=== PATIENT | female | born 1970 | race Caucasian/White ===

== ENCOUNTER 2025-02-02 06:30 | Inpatient (IN) | payer BC, SELFPAY ==
--- NOTE | ~2025-02-02 | XR_ITS ---
EXAM/ PROCEDURE: [id number] - 02/02/2025 9:40 CDT HISTORY: 54 years old Female with Pain COMPARISON: None available TECHNIQUE: Two view(s) FINDINGS/ IMPRESSION: There are no fractures or dislocations.Joint spaces are within normal limits. Reviewed, dictated and finalized at location A.
--- NOTE | ~2025-02-02 | XR_ITS ---
EXAM/ PROCEDURE: XR shoulder LT min 2V, XR shoulder RT min 2V - 02/02/2025 8:37 CDT HISTORY: 54 years old Female with request of radiologist COMPARISON: 02/02/2025 TECHNIQUE: Three view(s) each FINDINGS/ IMPRESSION: There are no fractures or dislocations.Joint spaces are within normal limits. Multiple sclerotic leo ges are again seen in bilateral humeral heads (right greater than left), concerning for avascular nec rosis versus osteoblastic metastatic disease. Reviewed, dictated and finalized at location A.
--- NOTE | ~2025-02-02 | XR_ITS ---
Clinical Indication: Cough PA and lateral views of the chest: Comparison: 08/26/2016 Findings: There is linear scarring at the left midlung. The lungs are otherwise clear, without eviden ce of focal consolidation or pleural effusion. Cardiomediastinal silhouette is stable. Calcified lef t hilar lymph node is unchanged. There is suggestion of sclerotic change of the bilateral humeral hea ds, right worse than left. Impression: Linear scarring left midlung. Suggestion of sclerotic change of the bilateral humeral heads, right worse than left. Diagnostic cons iderations could include avascular necrosis, or possibly osteoblastic metastatic disease. Consider de dicated shoulder radiographs. Reviewed, dictated and finalized at location . Impression: Linear scarring left midlung. Suggestion of sclerotic change of the bilateral humeral heads, right worse than left. Diagnostic considerations could include avascular necrosis, or possibly osteoblastic metastatic disease. Consider dedicated shoulder radiographs.
--- NOTE | ~2025-02-02 | CT_ITS ---
EXAMINATION: CTA chest abdomen pelvis DATE: 02/04/2025 07:14 INDICATION: Metastatic disease TECHNIQUE: Computed tomography (CT) of the chest, abdomen and pelvis was performed with 100 mL Omnipa que-350 intravenous contrast. Automated exposure control and iterative reconstruction technique were employed. The dose-length product was 701.80 mGy-cm. COMPARISON: None FINDINGS: CHEST CT: Small bilateral pleural effusions, right greater than left and associated dependent atelectasis in th e bilateral lower lobes. Mild smooth septal line thickening at the bilateral lung bases consistent wi th minimal pulmonary edema. Calcified left upper lobe pulmonary nodule along with calcified AP window lymph node consistent with old granulomatous disease. Mild cardiomegaly. Atherosclerotic coronary ar janee calcifications. Small pericardial effusion. Thoracic aorta is normal in caliber with no dissecti on. No pathologically enlarged thoracic lymphadenopathy. Some scarring in the lateral right breast berrios ggesting prior excisional biopsy. Surgical clips at the right axilla consistent with associated right axillary lymph node dissection. Numerous sclerotic bone lesions scattered diffusely throughout the a xial and appendicular skeleton consistent with metastatic disease. ABDOMEN/PELVIS CT: Cholecystectomy clips the gallbladder fossa. A few small hepatic and splenic calcifications consisten t with old granulomatous disease. Pancreas and left adrenal gland are normal. 2.8 x 1.5 cm right adre nal nodule which is been present since noncontrast CT on 08/26/2016 which demonstrates low-attenuation mass consistent with adrenal adenoma. There are few diverticula along the sigmoid colon without sarah cent from trace stranding to suggest diverticulitis. Small bowel and appendix are normal. Bladder is normal. Uterus and bilateral adnexa are unremarkable. No free intraperitoneal gas or fluid. No pathol ogically enlarged abdominal or pelvic lymphadenopathy. Numerous additional scattered sclerotic bone l esions in the lumbar spine, pelvis and proximal femurs consistent with metastatic disease. IMPRESSION: 1. Innumerable diffusely scattered sclerotic lesions throughout the visualized bones consistent with widespread osseous metastatic disease. 2. Change of prior right breast excisional biopsy and right axillary lymph node dissection for report ed breast cancer. No other lesions suspicious for primary malignancy or nonosseous metastatic disease in the chest, abdomen or pelvis. 3. Small bilateral pleural effusions, right greater than left. Reviewed, dictated and finalized at location A. IMPRESSION: 1. Innumerable diffusely scattered sclerotic lesions throughout the visualized bones consistent with widespread osseous metastatic disease. 2. Change of prior right breast excisional biopsy and right axillary lymph node dissection for reported breast cancer. No other lesions suspicious for primary malignancy or nonosseous metastatic disease in the chest, abdomen or pelvis. 3. Small bilateral pleural effusions, right greater than left.
--- NOTE | ~2025-02-02 | NM_ITS ---
EXAMINATION: NM bone scan whole body DATE: 02/03/2025 13:27 INDICATION: Multiple sclerotic lesions of bone TECHNIQUE: 26.9 mCi Tc-99m HDP was administered intravenously. Delayed whole-body scintigrams were o btained. COMPARISON: Radiograph dated 02/02/2025 FINDINGS: There is extensive heterogeneous increased bone uptake corresponding to the extensive and in places c onfluent sclerotic bone lesions throughout the axial and appendicular skeleton. The foci of increased uptake extend into the bilateral humeri and femurs as well as into the bones at the proximal forearm s and lower legs. Foci of increased uptake can also be seen in the skull and mandible. IMPRESSION: 1. Heterogeneous pattern of diffuse increased uptake in the axial and proximal appendicular skeleton corresponding to the widespread sclerosis of the bones and which is consistent with metastatic diseas e. Reviewed, dictated and finalized at location A. IMPRESSION: 1. Heterogeneous pattern of diffuse increased uptake in the axial and proximal appendicular skeleton corresponding to the widespread sclerosis of the bones an d which is consistent with metastatic disease.
--- NOTE | ~2025-02-02 | CT_ITS ---
CT scan of the Neck Technique: 2.5 mm axial scans were obtained through the neck without IV contrast administration. Jed nal and sagittal reconstructions of the neck were obtained. Dose reduction technique was used on this scan by utilizing automated exposure control and iterative reconstruction technique. The dose-length product (DLP) was 431.48 mGy-cm. Clinical History: Left jaw pain and swelling, status post tooth extraction Findings: There is no evidence of any significant cervical lymphadenopathy. Several small, nonenlarged jugulo- digastric and posterior cervical lymph nodes are noted bilaterally. Parapharyngeal spaces appear norm al bilaterally. The parotid and submandibular glands appear normal. The pharyngeal mucosal spaces appear normal. No soft tissue masses are seen in the neck. The thyroid gland appears normal. Images of the lung apices reveal no abnormalities. Impression: No significant abnormalities noted. Reviewed, dictated and finalized at [facility]. Impression: No significant abnormalities noted.
--- NOTE | ~2025-02-02 | XR_ITS ---
EXAMINATION: XR thoracic spine 3V, XR lumbar spine 2-3V DATE: 02/02/2025 09:58 INDICATION: Back pain TECHNIQUE: 1. One AP, lateral and lateral swimmer's views of the thoracic spine were obtained. 2. AP, lateral and coned-down lateral lumbosacral views of the lumbar spine were obtained. COMPARISON: None. FINDINGS: There is diffuse patchy sclerosis of the bones. 7 degrees upper thoracic levocurvature. Sagittal alig nment is normal. Normal alignment at the lumbar spine. Vertebral body heights are normal throughout. Multilevel thoracic disc height loss with small degenerative endplate osteophytes, moderate severity at T5 C6 and otherwise mild. Additional mild disc height loss at T12-L1, L1-L2 and L2-L3. Healing fra ctures of the lateral left third and seventh ribs.. Likely very small bilateral pleural effusions wit h blunting at the posterior sulci, cardiophrenic angles and left costophrenic angle. Cholecystectomy clips in right upper quadrant. IMPRESSION: 1. Diffuse sclerosis of the bones suspicious for metastatic disease in this patient with known histor y of prior breast cancer. 2. Mild thoracic and lumbar spondylosis. 3. Couple healing fractures of the lateral left third and seventh ribs which may be pathologic. 4. Very small bilateral pleural effusions. Reviewed, dictated and finalized at location A. IMPRESSION: 1. Diffuse sclerosis of the bones suspicious for metastatic disease in this pat ient with known history of prior breast cancer. 2. Mild thoracic and lumbar spondylosis. 3. Couple healing fractures of the lateral left third and seventh ribs which ma y be pathologic. 4. Very small bilateral pleural effusions.
--- NOTE | ~2025-02-02 | CT_ITS ---
EXAMINATION: CT biopsy bone deep ORDER COMPLETED DATE: 02/06/2025 12:54 INDICATION: Abnormal imaging. Personal history of breast cancer. TECHNIQUE: The procedure including the risks and benefits was discussed with the patient. The patient understood the risks and agreed to proceed. A time-out was performed to verify the patient's name, date of , and procedure to be performed . The skin overlying the right hip was prepped and draped in usual sterile fashion. Anesthetic was administered with 1% lidocaine subcutaneously and periosteal. Moderate conscious sedation was achieved with 200 mcg fentanyl IV and 3 mg of Versed IV. An 11 gauge introducer needle was inserted into greater trochanter of the right femur, utilizing CT g uidance consistent with recent bone scan. A core bone marrow biopsy was obtained. The needle was removed and the entry site was cleaned and dressed. There were no immediate complications. FINDINGS: CT examination demonstrates the biopsy device within the right femur, at the level of the g reater trochanter. IMPRESSION: 1. Successful CT-guided deep bone biopsy of the right femur, as detailed above. The patient was awakened in their sedation and transferred to the recovery area in stable condition. Reviewed, dictated and finalized at location A.
--- NOTE | ~2025-02-02 | XR_ITS ---
EXAM/ PROCEDURE: XR hip BI 2V w AP pelvis - 02/02/2025 9:40 CDT HISTORY: 54 years old Female with Pain, right hurts more COMPARISON: None available TECHNIQUE: 5 view(s) FINDINGS/ IMPRESSION: There are no fractures or dislocations.Joint spaces are within normal limits. Reviewed, dictated and finalized at location A.
--- NOTE | ~2025-02-02 | XR_ITS ---
EXAM/ PROCEDURE: [id number] - 02/02/2025 9:40 CDT HISTORY: 54 years old Female with Pain COMPARISON: None available TECHNIQUE: Three view(s) FINDINGS/ IMPRESSION: There are no fractures or dislocations.Joint spaces are within normal limits. Reviewed, dictated and finalized at location A.
[2025-02-02 06:36] VITALS: BP 165/112; PULSE 96; RESP 15; TEMP 36.6; O2SAT 97
[2025-02-02 06:58] LABS: Hematocrit 35.4 % (37.0-47.0); Hemoglobin 10.9 g/dL (12.0-15.0); Mean Corpuscular HGB Conc 30.8 g/dl (32-36); Mean Corpuscular Hemoglobin 30.8 pg (26-34); Mean Corpuscular Volume 100.0 fl (80-100); Platelet Count Result 158 k/mm3 (150-375); Red Blood Count 3.54 M/mm3 (4.2-5.4); White Blood Count 28.8 K/mm3 (4.5-10.0)
--- NOTE | 2025-02-02 07:01 | ED_ITS ---
HPI - General Adult General Chief complaint: Unspecified Stated complaint: the infection is spreading in my body Time Seen by Provider: 02/02/25 07:00 Source: patient Mode of arrival: ambulatory Limitations: no limitations History of Present Illness HPI narrative: Patient complaining pain and ache all over her body for months, been seen by harvest worker, stopped prednisone 3 weeks ago, was seen by silver steward few days ago with a diagnosis of fatty liver disease, was seen by a dentist few weeks ago and had a course of clindamycin and pulled tooth, currently complaining of same symptoms of body aches unable to walk, pain at the left face and swelling like lymph nodes. Patient believed that she have infection in her system and does not know where. Related Data Home Medications ?Medication ?Instructions ?Recorded ?Confirmed ?Last Taken ?Type No Home Medications 06/09/19 06/09/19 Unknown History Allergies Allergy/AdvReac Type Severity Reaction Status Date / Time Contrast Media Allergy Intermediate itching Uncoded 02/02/25 06:49 Review of Systems 2 Review of Systems: All systems reviewed & are unremarkable except as noted in HPI and below Exam 2 Narrative: General appearance: Well-developed, well-nourished Skin: Normal color left face exam showing slight swelling tenderness like lymph nodes just below the level of the left ear at the jaw area Head: Normocephalic, nontraumatic Eyes: Clear conjunctiva ENT: Oropharynx normal, ears normal, nose normal Neck: Supple, nontender Chest and respiratory: Airway patent, no respiratory distress, no accessory muscle use Heart: Regular rate/rhythm Abdomen: Soft, nontender, no organomegaly, quiet bowel sounds Vascular: Normal peripheral pulses, normal capillary refill. Musculoskeletal: Normal range of motion, nontender back Neurologic: Alert and oriented ?3, EDUCATION DIAGNOSTICIAN is normal as tested, no gross motor deficit Course Consultations Consultation #1: DR OSHEA Date: 02/02/25 Consultation #2: DR ALVAREZ Date: 02/02/25 Vital Signs Vital signs: Vital Signs Temperature 36.6 C 02/02/25 06:36 Pulse Rate 96 02/02/25 06:36 Respiratory Rate 15 02/02/25 06:36 Blood Pressure 165/112 H 02/02/25 06:36 Pulse Oximetry 97 02/02/25 06:36 Oxygen Delivery Room Air 02/02/25 06:36 Temperature 36.6 C 02/02/25 06:36 Pulse Rate 96 02/02/25 06:36 Respiratory Rate 15 02/02/25 06:36 Blood Pressure 165/112 H 02/02/25 06:36 Pulse Oximetry 97 02/02/25 06:36 Oxygen Delivery Room Air 02/02/25 06:36 Medical Decision Making MDM Narrative Medical decision making narrative: Patient presents with multiple symptoms Vital signs showing blood pressure 165/112 otherwise within normal limit Physical examination: Depressed looking patient, tenderness left Macario just below the level of the ear was possible lymphadenopathy Differential diagnosis include anxiety, stress related symptoms, autoimmune disease, dental infection, ear infection, urinary tract infection Blood workup today includes CBC, CMP, CRP showed WBC of 28.8, hemoglobin 10.9, AST 50, alkaline phosphatase 142, C-reactive protein 6.8, Urinalysis showed trace leukocyte Estrace Chest x-ray showed questionable bilateral avascular necrosis of the humeral head CT soft tissue neck with IV contrast showed no significant abnormalities Diagnosis: Body aches, leukocytosis, questionable osteoplastic metastatic disease Differential Diagnosis Differential Diagnosis: As above Vital Signs Vital Signs: Vital Signs Temperature 36.6 C 02/02/25 06:36 Pulse Rate 96 02/02/25 06:36 Respiratory Rate 15 02/02/25 06:36 Blood Pressure 165/112 H 02/02/25 06:36 Pulse Oximetry 97 02/02/25 06:36 Oxygen Delivery Room Air 02/02/25 06:36 Temperature 36.6 C 02/02/25 06:36 Pulse Rate 96 02/02/25 06:36 Respiratory Rate 15 02/02/25 06:36 Blood Pressure 165/112 H 02/02/25 06:36 Pulse Oximetry 97 02/02/25 06:36 Oxygen Delivery Room Air 02/02/25 06:36 Lab Data 02/02/25 06:52 02/02/25 06:52 Labs: Lab Results 02/02/25 02/02/25 Range/Units 06:52 07:51 WBC 28.8 H (4.5-10.0) K/mm3 RBC 3.54 L (4.2-5.4) M/mm3 Hgb 10.9 L (12.0-15.0) g/dL Hct 35.4 L (37.0-47.0) % MCV 100.0 (80-100) fl MCH 30.8 (26-34) pg MCHC 30.8 L (32-36) g/dl RDW 17.9 H (11.5-14.5) % Plt Count 158 (150-375) k/mm3 MPV 9.4 (7.4-10.4) fl Immature Gran % (Auto) Not Reportable Neut % (Auto) Not Reportable Lymph % (Auto) Not Reportable [place] % (Auto) Not Reportable Eos % (Auto) Not Reportable Baso % (Auto) Not Reportable Lymph # (Auto) Not Reportable [place] # (Auto) Not Reportable Eos # (Auto) Not Reportable Baso # (Auto) Not Reportable Abs Immat Gran (auto) Not Reportable Absolute Neuts (auto) Not Reportable Absolute Nucleated RBC Not Reportable Total Counted 100 Neutrophils % (Manual) 50 (46-73) % Band Neutrophils % 10 H (0-6) % Lymphocytes % (Manual) 12 L (18-44) % Monocytes % (Manual) 12 H (3-9) % Eosinophils % (Manual) 5 H (0-4) % Metamyelocytes % 3 % Myelocytes % 6 % Nucleated RBC % Not Reportable Abs Neuts (Manual) 17.28 H (1.3-6.7) K/mm3 Abs Lymphs (Manual) 3.45 (1.1-4.5) K/mm3 Abs Monocytes (Manual) 3.45 H (0.1-0.90) K/mm3 Absolute Eos (Manual) 1.44 H (0.02-0.50) K/mm3 Nucleated RBCs 7 % Platelet Estimate Adequate (Adequate) Polychromasia 1+ Anisocytosis 1+ Schistocytes None seen Sodium 138 (137-145) mmol/L Potassium 4.5 (3.4-5.0) mmol/L Chloride 101 (98-107) mmol/L Carbon Dioxide 25 (22-30) mmol/L Anion Gap 12 (4-12) mmol/L BUN 13 (7-17) mg/dL Creatinine 0.77 (0.7-1.0) mg/dL Estim Creat Clear Calc 71 ml/min Estimated GFR > 60 (59 - ) Glucose 128 H (65-110) mg/dL Lactic Acid 1.1 (0.7-2.0) mmol/L Calcium 9.9 (8.4-10.2) mg/dL Total Bilirubin 0.5 (0.2-1.3) mg/dL AST 50 H (14-36) U/L ALT 23 (6-35) U/L Alkaline Phosphatase 142 H (38-126) U/L C-Reactive Protein 6.8 H (<1.0) mg/dL Total Protein 8.4 H (6.3-8.2) g/dL Albumin 4.2 (3.5-5.1) g/dL Urine Color Yellow (Yellow) Urine Appearance Clear (Clear) Urine pH 6.5 (5.0-9.0) Ur Specific [place] 1.007 (1.001-1.035) Urine Protein Negative (Negative) mg/dL Urine Glucose (UA) Negative (Negative) mg/dL Urine Ketones Negative (Negative) mg/dL Ur Blood (Man) Negative (Negative) Urine Nitrate Negative (Negative) Urine Bilirubin Negative (Negative) Urine Urobilinogen 0.2 (<2.0) mg/dL Leukocyte Esterase Rfl Trace H (Negative) CHARLES/UL Urine RBC 0-2 (0-2) /hpf Urine WBC 0-5 (0-3) /hpf Ur Squamous Epith Cells None seen (Few) /hpf Urine Bacteria None seen /hpf Urine Casts 0-2 Imaging Data Radiologist's impression: Impressions Chest X-Ray 02/02/25 08:07 Impression: Linear scarring left midlung. Suggestion of sclerotic change of the bilateral humeral heads, right worse than left. Diagnostic considerations could include avascular necrosis, or possibly osteoblastic metastatic disease. Consider dedicated shoulder radiographs. Soft Tissue Neck CT 02/02/25 08:09 Impression: No significant abnormalities noted. Critical Care Time Critical Care Time Critical Care Time: No Discharge Plan Discharge Clinical Impression: Leukocytosis, Generalized body aches Patient Disposition: Still a Patient Condition: Stable Patient Language: Japanese Prescriptions: No Action No Home Medications Follow-up/Referrals: Praveena,MD Clarita [Primary Care Provider] -
[2025-02-02 07:09] LABS: Alanine Aminotransferase 23 U/L (6-35); Albumin Level 4.2 g/dL (3.5-5.1); Alkaline Phosphatase 142 U/L (38-126); Anion Gap 12 mmol/L (4-12); Aspartate Amino Transferase 50 U/L (14-36); Bilirubin,Total 0.5 mg/dL (0.2-1.3); Blood Urea Nitrogen 13 mg/dL (7-17); Calcium 9.9 mg/dL (8.4-10.2); Carbon Dioxide 25 mmol/L (22-30); Chloride 101 mmol/L (98-107); Estimated CRCL calculation 71 ml/min; Estimated Glomerular Filt Rate > 60; Glucose 128 mg/dL (65-110); Potassium 4.5 mmol/L (3.4-5.0); Sodium 138 mmol/L (137-145); Total Protein 8.4 g/dL (6.3-8.2)
[2025-02-02 07:37] LABS: CRP 6.8 mg/dL (<1.0)
--- NOTE | 2025-02-02 07:42 | PC.NURSE ---
MiTio tech and Reema tech attempted to draw patients blood cultures. both attempts unsuccessful. Toño RODRIGUEZ aware.
[2025-02-02 07:45] LABS: Total Cells Counted 100
[2025-02-02 07:46] LABS: Band Neutrophils Percent 10 % (0-6); Eosinophils Absolute Manual 1.44 K/mm3 (0.02-0.50); Eosinophils Percent Manual 5 % (0-4); Lymphocytes Absolute Manual 3.45 K/mm3 (1.1-4.5); Lymphocytes Percent Manual 12 % (18-44); Metamyelocytes Percent 3 %; Monocytes Absolute Manual 3.45 K/mm3 (0.1-0.90); Monocytes Percent Manual 12 % (3-9); Myelocytes Percent 6 %; Neutrophils Absolute Manual 17.28 K/mm3 (1.3-6.7); Neutrophils Percent Manual 50 % (46-73); Schistocytes None Seen
--- NOTE | 2025-02-02 07:46 | PC.NURSE ---
patient in bathroom at this time to provide urine sample.
[2025-02-02 07:47] LABS: Anisocytosis 1+; Polychromasia 1+
--- NOTE | 2025-02-02 07:48 | PC.NURSE ---
per Toño RODRIGUEZ, cancel patient blood culture orders.
[2025-02-02 08:04] LABS: Add Urine Microscopic? YES; Appearance Urine Clear (Clear); Glucose Urine UA Negative (Negative); Leukocyte Esterase Ur Trace LEU/UL (Negative); Nitrate Urine Negative (Negative); Non Pathogenic Casts 0-2; Specific Grav Ur 1.007 (1.001-1.035)
[2025-02-02 09:10] VITALS: BP 131/84; PULSE 78; RESP 16; O2SAT 99
[2025-02-02] MEDS: NICOTINE (*PBKC) 21 MG PATCH 1 PATCH TRANSDERM (10:31)
--- NOTE | 2025-02-02 11:24 | PC.NURSE ---
Bedside report received from Toño RODRIGUEZ
[2025-02-02 12:25] VITALS: BP 135/87; PULSE 92; RESP 18; TEMP 36.8; O2SAT 97
--- NOTE | 2025-02-02 13:28 | ADMGEN ---
This patient, Lucila Conrad, was admitted to [facility] Surg Room 321-02. Patient/family oriented to hospital policies and general routines including ID bracelet, bed and alarms, visiting hours, pain management, procedures, bathroom and other care routines, personal items, smoking policy, room service/diet, and visiting hours. Information on how to activate the Rapid Response Team has been discussed. Patient/Family are encouraged to report perceived risks to care and to ask questions if they do not understand what they are told or what they should do.
[2025-02-02 13:29] VITALS: BMI 32.0
[2025-02-02] MEDS: SODIUM CHLORIDE 0.9% IV 1,000 ML 125 ML IV CONT (14:16)
--- NOTE | 2025-02-02 14:48 | PM.IMHP ---
H&P: HPI History of Present Illness Date/Time: 02/02/25 14:48 Chief Complaint: presented with diffuse body pains and elevated WBC Narrative: 54 yo female with PMH of breast ca, DM2 who noted she controlled it wihte about 30 lbs weight loss the past 4 months, presented to the ER on Elevated WBC and diffuse body pain. Patient report that about 3=4 months ago she started having left hip pain for which she was referred to the Ent Nurse who diagnosed of RA and later discounted nella diagnosis. about 3 weeks ago she had dental infection and hs her tooth removed . Noted she has been following up with PCP who noted taht her WBC has increased from 14 to 28 for which she was recommended to present to the ER for proper eval and care. Noted that she has been having diffuse body aches and night sweats last night . Otherwise denies any chest pain, vomiting, diarrhea, abd pain, dysuria or focal weakness. ER eval notable for stable vital signs within normal limits, EBC 28.8, Hb 10.9. Imaging showed diffuse sclerotic lesions with on bilateral humeral heads, and diffuse bone sclerotic lesions suspicious for metastatic disease. ONcology and Ortho were consulted prior to admission. Review of Systems Review of Systems: All other systems were reviewed and negative except as noted in the HPI above [facility] Social History Social History Smoking packs per day: 1 Smoking cigarettes per day: 20.0 Years smoked: 30 Smoking pack-years: 30.00 Smoking status: Current every day smoker Tobacco type: cigarettes Alcohol intake: never Substance use: never Do You Feel Safe in your Home?: Yes Lack of Transportation: No Lack of Food: Never True Current Housing: I Have Housing Concerned About Future Housing: No Difficulty Paying Gas/Electric Bills: No Difficulty Paying for Meds: No Currently Unemployed: No Education: High School Diploma/GED Difficulty w/ Childcare or Family Care: No Spiritual care concerns: No Meds Home Medications and Allergies Home Medications ?Medication ?Instructions ?Recorded ?Confirmed ?Type No Home Medications 06/09/19 06/09/19 History Allergies Allergy/AdvReac Type Severity Reaction Status Date / Time Contrast Media Allergy Intermediate itching Uncoded 02/02/25 06:49 Vital Signs Vital Signs - 24 hr 02/02/25 06:36 02/02/25 09:10 02/02/25 12:25 Temperature 97.8 F 98.2 F Pulse Rate 96 78 92 Respiratory Rate 15 16 18 Blood Pressure 165/112 H 131/84 135/87 Pulse Oximetry 97 99 97 Oxygen Delivery Room Air Exam Narrative: General: alert and comfortable Eyes: EOMI, PERRLA ENNT External ears normal, Neck is supple, no masses, Respiratory systems: Clear to auscultation Cardiovascular S1, S2, normal rhythm, no murmur, rub, or gallop; no thrill or palpable murmurs on palpation. Gastrointestinal: soft, non-tender, and non-distended abdomen with no masses; BS present Skin: no rash, lesions, ulcerations, subcutaneous nodules or induration Musculoskeletal: no abnormality and no tenderness, normal ROM Neurologic: Alert and oriented x3, non focal Mental Status Exam: normal affect H&P: Results Labs Labs: Short CBC 02/02/25 Range/Units 06:52 WBC 28.8 H (4.5-10.0) K/mm3 Hgb 10.9 L (12.0-15.0) g/dL Hct 35.4 L (37.0-47.0) % Plt Count 158 (150-375) k/mm3 BMP 02/02/25 06:52 Sodium 138 Potassium 4.5 Chloride 101 Carbon Dioxide 25 BUN 13 Creatinine 0.77 Glucose 128 H Calcium 9.9 Liver Function 02/02/25 Range/Units 06:52 Total Bilirubin 0.5 (0.2-1.3) mg/dL AST 50 H (14-36) U/L ALT 23 (6-35) U/L Alkaline Phosphatase 142 H (38-126) U/L Albumin 4.2 (3.5-5.1) g/dL Urine 02/02/25 Range/Units 07:51 Urine Color Yellow (Yellow) Urine Appearance Clear (Clear) Urine pH 6.5 (5.0-9.0) Ur Specific [place] 1.007 (1.001-1.035) Urine Protein Negative (Negative) mg/dL Urine Glucose (UA) Negative (Negative) mg/dL Assessment and Plan Assessment and plan (1) Generalized body aches: Code(s): R52 - Pain, unspecified Status: Acute (2) Leukocytosis: Code(s): D72.829 - Elevated white blood cell count, unspecified Status: Acute Plan Possible metastatic disease possibly from prior breast ca presented with diffuse body aches Leukocytosis and night sweats Imaging showed diffuse sclerotic lesions suspicious for metastatic disease Oncology and Ortho consulted from the ER Bone biopsy ordered Dm2 BG 128 A1c ordered Hx of Breast ca continue above care DVT prophylaxis on Sq Lovenox FUll code Hospitalist MIPS Advance Care Plan I have confirmed that the patient's Advanced Care Plan is present, code status is documented, or surrogate decision maker is listed in patient medical record.: Yes Medication Reconciliation I have utilized all available resources to obtain, update and review the patients current medications (includes all prescriptions, OTC, herbals, cannabis, and nutritional supplements).: Yes
[2025-02-02 15:20] VITALS: PULSE 92; RESP 18; O2SAT 97
--- NOTE | 2025-02-02 18:05 | WPDONCCN ---
Assessment and Plan Assessment and plan (1) Bone lesion: Code(s): M89.9 - Disorder of bone, unspecified Status: Acute Assessment and Plan: This is a pleasant 54-year-old female with history of right-sided breast cancer status post lumpectomy in 2019 and then adjuvant radiation therapy treatment. She did not receive chemotherapy and endocrine therapy. Came into the hospital with generalized body aches. Labs showed elevated WBC count. Lumbar and thoracic spine x-rays were performed due to back pain that showed diffuse sclerosis of the bone suspicious for metastatic disease. On breast examination there is no evidence of masses and lymphadenopathy other than scarring in the right breast at 7 o'clock position. I will order CA 15-3 as well as bone scan and CT chest abdomen pelvis. (2) Leukocytosis: Code(s): D72.829 - Elevated white blood cell count, unspecified Status: Acute Assessment and Plan: This is likely reactive secondary to generalized musculoskeletal discomfort and need recent use of the steroids. I will check C-reactive protein, sedimentation rate and flow cytometric analysis for leukemia. She was provided with my office information for follow-up. HPI Data of Consult Date/Time: 02/02/25 18:05 Requesting Physician: Gabriel Brown MD Primary Care Provider: Clarita GrissomMD Consult Narrative Narrative: Lucila Conrad is a 54 year old female with history of right-sided breast cancer diagnosed April 2019 is status post lumpectomy and then adjuvant radiation therapy treatment. She did not receive chemotherapy and endocrine therapy. Surgery was performed by Dr. Arenas at [facility]. She also has a history of type 2 diabetes and autoimmune disease with rheumatoid arthritis like symptoms. She was treated with steroid dose for about 6 weeks duration 1 month ago for generalized myalgia is without much relief. She came into the hospital with generalized body aches and found to have elevated WBC count. Thoracic and lumbar spine x-ray showed diffuse sclerosis of the bone suspicious for metastatic disease. She denies any weight loss. Denies any new lung sounds are lymphadenopathy. She has intermittent left upper quadrant abdominal pain. No other new complaint. Review of Systems Review of Systems: Review of system as per HPI otherwise negative PMFSH Social History Social History Smoking packs per day: 1 Smoking cigarettes per day: 20.0 Years smoked: 30 Smoking pack-years: 30.00 Smoking status: Current every day smoker Tobacco type: cigarettes Alcohol intake: never Substance use: never Do You Feel Safe in your Home?: Yes Lack of Transportation: No Lack of Food: Never True Current Housing: I Have Housing Concerned About Future Housing: No Difficulty Paying Gas/Electric Bills: No Difficulty Paying for Meds: No Currently Unemployed: No Education: High School Diploma/GED Difficulty w/ Childcare or Family Care: No Spiritual care concerns: No Meds Home Medications and Allergies Home Medications ?Medication ?Instructions ?Recorded ?Confirmed ?Type No Home Medications 06/09/19 02/02/25 History Allergies Allergy/AdvReac Type Severity Reaction Status Date / Time Contrast Media Allergy Intermediate itching Uncoded 02/02/25 06:49 Vital Signs Vital Signs - 24 hr 02/02/25 06:36 02/02/25 09:10 02/02/25 12:25 Temperature 36.6 C 36.8 C Pulse Rate 96 78 92 Respiratory Rate 15 16 18 Blood Pressure 165/112 H 131/84 135/87 Pulse Oximetry 97 99 97 Oxygen Delivery Room Air 02/02/25 15:20 Temperature Pulse Rate 92 Respiratory Rate 18 Blood Pressure Pulse Oximetry 97 Oxygen Delivery Room Air Exam Narrative: Lungs are clear to auscultation bilaterally Cardiovascular regular rate rhythm no murmurs Abdomen soft nontender nondistended bowel sounds are positive Extremities no edema Bilateral breast examination showed postoperative scarring in the right breast at 5:00 a.m. position without any lymphadenopathy. Results Labs 02/02/25 06:52 02/02/25 06:52 Labs: Short CBC 02/02/25 Range/Units 06:52 WBC 28.8 H (4.5-10.0) K/mm3 Hgb 10.9 L (12.0-15.0) g/dL Hct 35.4 L (37.0-47.0) % Plt Count 158 (150-375) k/mm3 BMP 02/02/25 06:52 Sodium 138 Potassium 4.5 Chloride 101 Carbon Dioxide 25 BUN 13 Creatinine 0.77 Glucose 128 H Calcium 9.9 Liver Function 02/02/25 Range/Units 06:52 Total Bilirubin 0.5 (0.2-1.3) mg/dL AST 50 H (14-36) U/L ALT 23 (6-35) U/L Alkaline Phosphatase 142 H (38-126) U/L Albumin 4.2 (3.5-5.1) g/dL Urine 02/02/25 Range/Units 07:51 Urine Color Yellow (Yellow) Urine Appearance Clear (Clear) Urine pH 6.5 (5.0-9.0) Ur Specific [place] 1.007 (1.001-1.035) Urine Protein Negative (Negative) mg/dL Urine Glucose (UA) Negative (Negative) mg/dL
--- NOTE | 2025-02-02 20:06 | PC.NURSE ---
patient refusing prednisone stating that taking it makes her body hurt too much. patient offered pain medication. patient still refuses, saying she won't be able to sleep. patient offered sleep aid. patient still refusing. patient informed we will not be able to do the scans tomorrow. patient states understanding. patient offered pain medication for her full body aches anyway and she said she does not know what she wants right now.
[2025-02-02 22:00] VITALS: BP 153/85; PULSE 84; RESP 16; TEMP 36.6; O2SAT 95
--- NOTE | 2025-02-03 | CONSULT_PTH ---
PATIENT: Lucila Conrad LOC: [id number] U#:[id number] AGE/SX: 54/F ROOM: 322 RE02/04/[address]: Karly Acosta APRN : 1970 BED: 01 DIS: 02/07/2025 SPEC #: [id number] RECD: 02/03/25 09:00 STATUS: SUSHIL REQ #: [id number] YU: 02/03/25 00:[address]: Gabriel Brown DEPT: [facility] Consult RECD BY: Shanell Jenkins MLT ENTERED: 02/03/25 09:01 SP TYPE: Consult OTHR DR: MD Clarita Bailon, MD Chinedu Daniels MD Tissues: A - Peripheral Smear Procedures: Hematology Consult
[2025-02-03] MEDS: SODIUM CHLORIDE 0.9% IV 1,000 ML 125 ML IV CONT ×3 (00:33→20:46)
[2025-02-03 06:00] VITALS: BP 150/85; PULSE 89; RESP 16; TEMP 36.5; O2SAT 95
[2025-02-03 08:15] LABS: Hematocrit 34.9 % (37.0-47.0); Hemoglobin 10.4 g/dL (12.0-15.0); Mean Corpuscular HGB Conc 29.8 g/dl (32-36); Mean Corpuscular Hemoglobin 31.2 pg (26-34); Mean Corpuscular Volume 104.8 fl (80-100); Platelet Count Result 142 k/mm3 (150-375); Red Blood Count 3.33 M/mm3 (4.2-5.4); White Blood Count 26.9 K/mm3 (4.5-10.0)
[2025-02-03] MEDS: NICOTINE (*PBKC) 21 MG PATCH 1 PATCH TRANSDERM (08:45)
[2025-02-03] MEDS: ENOXAPARIN 40 MG/0.4 ML SYRINGE SUB-Q (08:46)
[2025-02-03 08:57] LABS: Band Neutrophils Percent 36 % (0-6); Basophils Absolute Manual 0.53 K/mm3 (0.0-0.1); Basophils Percent Manual 2 % (0-1); Eosinophils Absolute Manual 0.53 K/mm3 (0.02-0.50); Eosinophils Percent Manual 2 % (0-4); Lymphocytes Absolute Manual 4.03 K/mm3 (1.1-4.5); Lymphocytes Percent Manual 15 % (18-44); Metamyelocytes Percent 5 %; Monocytes Absolute Manual 1.61 K/mm3 (0.1-0.90); Monocytes Percent Manual 6 % (3-9); Neutrophils Absolute Manual 18.02 K/mm3 (1.3-6.7); Neutrophils Percent Manual 31 % (46-73); Promyelocytes Percent 3 %; Total Cells Counted 100
[2025-02-03 08:59] LABS: Anisocytosis 1+; Hypochromasia 1+; Schistocytes None Seen
--- NOTE | 2025-02-03 09:30 | CY_PTH ---
PATIENT: Lucila Conrad LOC: [id number] U#:[id number] AGE/SX: 54/F ROOM: 322 RE02/04/[address]: Karly Acosta APRN : 1970 BED: 01 DIS: 02/07/2025 SPEC #: [id number] RECD: 02/03/25 09:37 STATUS: SUSHIL REQ #: [id number] YU: 02/03/25 09:[address]: Miguel Angel Salmon DEPT: [facility] Cytology RECD BY: Laure Link ENTERED: 02/03/25 09:38 SP TYPE: Cytology OTHR DR: MD Clarita Espana, MD Chinedu Daniels MD Tissues: A - Peripheral Blood Procedures: Flow Cytometry
[2025-02-03 09:55] LABS: Alanine Aminotransferase 19 U/L (6-35); Albumin Level 3.6 g/dL (3.5-5.1); Alkaline Phosphatase 131 U/L (38-126); Anion Gap 11 mmol/L (4-12); Aspartate Amino Transferase 46 U/L (14-36); Bilirubin,Total 0.4 mg/dL (0.2-1.3); Blood Urea Nitrogen 11 mg/dL (7-17); Calcium 9.3 mg/dL (8.4-10.2); Carbon Dioxide 21 mmol/L (22-30); Chloride 108 mmol/L (98-107); Creatine Kinase 67 U/L (30-135); Estimated CRCL calculation 86 ml/min; Estimated Glomerular Filt Rate > 60; Glucose 101 mg/dL (65-110); Magnesium 2.0 mg/dL (1.6-2.3); Potassium 4.4 mmol/L (3.4-5.0); Sodium 140 mmol/L (137-145); Total Protein 6.8 g/dL (6.3-8.2)
[2025-02-03 11:08] LABS: Hemoglobin A1C 5.6 % (<5.7)
[2025-02-03 14:00] VITALS: BP 151/80; PULSE 90; RESP 16; TEMP 36.4; O2SAT 97
--- NOTE | 2025-02-03 16:03 | P.PNIM_ITS ---
Progress Note: A&P Assessment and Plan (1) Generalized body aches: Code(s): R52 - Pain, unspecified Status: Acute (2) Leukocytosis: Code(s): D72.829 - Elevated white blood cell count, unspecified Status: Acute Plan Possible metastatic disease possibly from prior breast ca presented with diffuse body aches Leukocytosis and night sweats Imaging showed diffuse sclerotic lesions suspicious for metastatic disease oncology eval noted, CA [address] AP due to prior history of agitation from prednisone, she is willing to try hydrocortisone premedication Bone scan pendign Bone biopsy ordered Dm2 BG 140 A1c ordered Hx of Breast ca continue above care DVT prophylaxis on Sq Lovenox FUll code Subjective Date/time seen: 02/03/25 16:03 Interval history: Comfortable at bedside Review of Systems Review of Systems: All other systems were reviewed and negative except as noted in the HPI above Exam Narrative: General: alert and comfortable Eyes: EOMI, PERRLA ENNT External ears normal, Neck is supple, no masses, Respiratory systems: Clear to auscultation Cardiovascular S1, S2, normal rhythm, no murmur, rub, or gallop; no thrill or palpable murmurs on palpation. Gastrointestinal: soft, non-tender, and non-distended abdomen with no masses; BS present Skin: no rash, lesions, ulcerations, subcutaneous nodules or induration Musculoskeletal: no abnormality and no tenderness, normal ROM Neurologic: Alert and oriented x3, non focal Mental Status Exam: normal affect Objective Data Vital Signs Vital Signs: Vital Signs - 24 hr 02/02/25 20:00 02/02/25 22:00 02/03/25 06:00 Temperature 97.8 F 97.7 F Pulse Rate 84 89 Respiratory Rate 16 16 Blood Pressure 153/85 H 150/85 H Pulse Oximetry 95 95 Oxygen Delivery Room Air 02/03/25 08:00 02/03/25 14:00 Temperature 97.5 F L Pulse Rate 90 Respiratory Rate 16 Blood Pressure 151/80 H Pulse Oximetry 97 Oxygen Delivery Room Air Intake/Output Intake/Output: Intake & Output 01/31/25 02/01/25 02/02/25 02/03/25 23:59 23:59 23:59 23:59 Intake Total 2160 1550 Balance 2160 1550 Meds/Results Medications: Active Medications Generic Name Dose Route Start Last Admin Trade Name Freq PRN Reason Stop Dose Admin Acetaminophen 650 mg 02/02/25 10:09 Acetaminophen 325 Mg Tablet PO Q4H PRN Mild Pain (1-3) or Fever Enoxaparin Sodium 40 mg 02/03/25 09:00 02/03/25 08:46 Enoxaparin 40 Mg/0.4 Ml Syringe SUB-Q 40 mg DAILY RHIANNON Administration Sodium Chloride 1,000 mls @ 125 mls/hr 02/02/25 10:15 02/03/25 08:44 Normal Saline Iv IV CONT 125 mls/hr .Q8H RHIANNON Administration Nicotine 1 patch 02/02/25 10:00 02/03/25 08:45 Nicotine (*Pbkc) 21 Mg Patch TRANSDERM 1 patch DAILY RHIANNON Administration Tramadol HCl 25 mg 02/02/25 22:06 Tramadol Hcl (*Crx) 25 Mg Tablet PO Q6H PRN Pain Rated 4-6 Radiology Results: ITS Impressions Chest X-Ray 02/02/25 08:07 Impression: Linear scarring left midlung. Suggestion of sclerotic change of the bilateral humeral heads, right worse than left. Diagnostic considerations could include avascular necrosis, or possibly osteoblastic metastatic disease. Consider dedicated shoulder radiographs. Soft Tissue Neck CT 02/02/25 08:09 Impression: No significant abnormalities noted. Lumbar Spine X-Ray 02/02/25 09:59 IMPRESSION: 1. Diffuse sclerosis of the bones suspicious for metastatic disease in this patient with known history of prior breast cancer. 2. Mild thoracic and lumbar spondylosis. 3. Couple healing fractures of the lateral left third and seventh ribs which may be pathologic. 4. Very small bilateral pleural effusions. Thoracic Spine X-Ray 02/02/25 09:59 IMPRESSION: 1. Diffuse sclerosis of the bones suspicious for metastatic disease in this patient with known history of prior breast cancer. 2. Mild thoracic and lumbar spondylosis. 3. Couple healing fractures of the lateral left third and seventh ribs which may be pathologic. 4. Very small bilateral pleural effusions. Bone Scan Nuclear Medicine 02/03/25 14:58 IMPRESSION: 1. Heterogeneous pattern of diffuse increased uptake in the axial and proximal appendicular skeleton corresponding to the widespread sclerosis of the bones and which is consistent with metastatic disease. Labs Labs: Laboratory Results - last 24 hr 02/03/25 07:33 WBC 26.9 H RBC 3.33 L Hgb 10.4 L Hct 34.9 L MCV 104.8 H MCH 31.2 MCHC 29.8 L RDW 18.0 H Plt Count 142 L MPV 9.9 Immature Gran % (Auto) Not Reportable Neut % (Auto) Not Reportable Lymph % (Auto) Not Reportable [place] % (Auto) Not Reportable Eos % (Auto) Not Reportable Baso % (Auto) Not Reportable Lymph # (Auto) Not Reportable [place] # (Auto) Not Reportable Eos # (Auto) Not Reportable Baso # (Auto) Not Reportable Abs Immat Gran (auto) Not Reportable Absolute Neuts (auto) Not Reportable Absolute Nucleated RBC Not Reportable Total Counted 100 Neutrophils % (Manual) 31 L Band Neutrophils % 36 H Lymphocytes % (Manual) 15 L Monocytes % (Manual) 6 Eosinophils % (Manual) 2 Basophils % (Manual) 2 H Metamyelocytes % 5 Promyelocytes % (Man) 3 Nucleated RBC % Not Reportable Abs Neuts (Manual) 18.02 H Abs Lymphs (Manual) 4.03 Abs Monocytes (Manual) 1.61 H Absolute Eos (Manual) 0.53 H Abs Basophils (Manual) 0.53 H Nucleated RBCs 6 Platelet Estimate Slightly decreased Hypochromasia 1+ Anisocytosis 1+ Schistocytes None seen Sodium 140 Potassium 4.4 Chloride 108 H Carbon Dioxide 21 L Anion Gap 11 BUN 11 Creatinine 0.62 L Estim Creat Clear Calc 86 Estimated GFR > 60 Glucose 101 Hemoglobin A1c 5.6 Lactic Acid 0.9 Calcium 9.3 Magnesium 2.0 Total Bilirubin 0.4 AST 46 H ALT 19 Alkaline Phosphatase 131 H Total Creatine Kinase 67 Total Protein 6.8 Albumin 3.6
[2025-02-03 20:00] VITALS: PULSE 94; RESP 18; O2SAT 96
[2025-02-03] MEDS: LORazepam (*CRX) 0.5 MG TABLET PO (20:02)
[2025-02-03 22:00] VITALS: BP 148/87; PULSE 94; RESP 18; TEMP 36.2; O2SAT 96
[2025-02-04 06:00] VITALS: BP 153/89; PULSE 83; RESP 18; TEMP 36.9; O2SAT 95
[2025-02-04 08:23] LABS: Hematocrit 34.1 % (37.0-47.0); Hemoglobin 10.4 g/dL (12.0-15.0); Mean Corpuscular HGB Conc 30.5 g/dl (32-36); Mean Corpuscular Hemoglobin 31.0 pg (26-34); Mean Corpuscular Volume 101.5 fl (80-100); Platelet Count Result 166 k/mm3 (150-375); Red Blood Count 3.36 M/mm3 (4.2-5.4); White Blood Count 32.2 K/mm3 (4.5-10.0)
[2025-02-04 08:26] VITALS: BP 147/75; PULSE 77; RESP 16; TEMP 35.7; O2SAT 95
[2025-02-04 09:05] LABS: Band Neutrophils Percent 30 % (0-6); Eosinophils Absolute Manual 0.96 K/mm3 (0.02-0.50); Eosinophils Percent Manual 3 % (0-4); Hypochromasia 1+; Lymphocytes Absolute Manual 3.22 K/mm3 (1.1-4.5); Lymphocytes Percent Manual 10 % (18-44); Macrocytosis 1+ (NORMAL); Metamyelocytes Percent 8 %; Monocytes Absolute Manual 1.93 K/mm3 (0.1-0.90); Monocytes Percent Manual 6 % (3-9); Neutrophils Absolute Manual 23.50 K/mm3 (1.3-6.7); Neutrophils Percent Manual 43 % (46-73); Total Cells Counted 100
[2025-02-04 09:06] LABS: Schistocytes None Seen
[2025-02-04] MEDS: NICOTINE (*PBKC) 21 MG PATCH 1 PATCH TRANSDERM (09:48)
[2025-02-04] MEDS: ENOXAPARIN 40 MG/0.4 ML SYRINGE SUB-Q (09:49)
--- NOTE | 2025-02-04 10:59 | P.CONOP_ITS ---
Assessment and Plan Assessment and plan (1) Bilateral shoulder pain: Code(s): M25.511 - Pain in right shoulder; M25.512 - Pain in left shoulder Status: Acute Plan 54 yr old female with Bilateral Shoulder and Chest Pain. - Breast Cancer Dx 2019 - lumpectomy with XRT, no chemo, Stage 1 with neg lymph nodes according to patient. - for about a year, she has experienced progressive weakness/lethargy with excessive sleeping. - generalized body aches - she has seen multiple providers including Dr Pat (Private Wealth Advisor), CLIENT SERVICES REPRESENTATIVE at [facility]. - she eventually presented to [facility] ED with exhaustion and chest pain - during the workup in the ED, shoulder xrays were concerning for metastatic disease involving bilateral humeral heads. - subsequent workup with bone scan reveals multiple areas of uptake including bilateral humeral heads, lumbar spine, forearm. * await bone biopsy on Thursday History of Present Illness [facility] Consult date: 02/04/25 Requesting physician: Heidy Araiza MD Consult reason: joint pain Chief complaint: Bilateral Shoulder Pain Narrative: 54 yr old female with Bilateral Shoulder and Chest Pain. - Breast Cancer Dx 2019 - lumpectomy with XRT, no chemo, Stage 1 with neg lymph nodes according to patient. - for about a year, she has experienced progressive weakness/lethargy with excessive sleeping. - generalized body aches - she has seen multiple providers including Dr Pat (Private Wealth Advisor), CLIENT SERVICES REPRESENTATIVE at [facility]. - she eventually presented to [facility] ED with exhaustion and chest pain - during the workup in the ED, shoulder xrays were concerning for metastatic disease involving bilateral humeral heads. - subsequent workup with bone scan reveals multiple areas of uptake including bilateral humeral heads, lumbar spine, forearm. Review of Systems 2 Review of Systems: All systems reviewed & are unremarkable except as noted in HPI and below Constitutional: Constitutional: Reports as per HPI [facility] Social History Social History Smoking packs per day: 1 Smoking cigarettes per day: 20.0 Years smoked: 30 Smoking pack-years: 30.00 Smoking status: Current every day smoker Tobacco type: cigarettes Alcohol intake: never Substance use: never Do You Feel Safe in your Home?: Yes Lack of Transportation: No Lack of Food: Never True Current Housing: I Have Housing Concerned About Future Housing: No Difficulty Paying Gas/Electric Bills: No Difficulty Paying for Meds: No Currently Unemployed: No Education: High School Diploma/GED Difficulty w/ Childcare or Family Care: No Spiritual care concerns: No Meds Home Medications and Allergies Home Medications ?Medication ?Instructions ?Recorded ?Confirmed ?Type No Home Medications 06/09/19 02/02/25 History Allergies Allergy/AdvReac Type Severity Reaction Status Date / Time Contrast Media Allergy Intermediate itching Uncoded 02/02/25 06:49 Vital Signs Vital Signs - 24 hr 02/03/25 14:00 02/03/25 20:00 02/03/25 22:00 Temperature 36.4 C L 36.2 C L Pulse Rate 90 94 94 Respiratory Rate 16 18 18 Blood Pressure 151/80 H 148/87 H Pulse Oximetry 97 96 96 Oxygen Delivery Room Air 02/04/25 06:00 02/04/25 08:26 Temperature 36.9 C 35.7 C L Pulse Rate 83 77 Respiratory Rate 18 16 Blood Pressure 153/89 H 147/75 H Pulse Oximetry 95 95 Oxygen Delivery Exam 2 Narrative: Alert and oriented x 3 - sitting up in bed comfortable - able to perform single leg stance with no difficulty - bilateral shoulder range of motion is full and unrestricted with no pain on range of motion - no tenderness to palpation over the hu meral heads or over the ac joints Results Labs 02/04/25 08:11 02/03/25 07:33 Labs: Abnormal lab results 02/04/25 Range/Units 08:11 WBC 32.2 H (4.5-10.0) K/mm3 RBC 3.36 L (4.2-5.4) M/mm3 Hgb 10.4 L (12.0-15.0) g/dL Hct 34.1 L (37.0-47.0) % MCV 101.5 H (80-100) fl MCHC 30.5 L (32-36) g/dl RDW 17.4 H (11.5-14.5) % MPV 10.5 H (7.4-10.4) fl Neutrophils % (Manual) 43 L (46-73) % Band Neutrophils % 30 H (0-6) % Lymphocytes % (Manual) 10 L (18-44) % Abs Neuts (Manual) 23.50 H (1.3-6.7) K/mm3 Abs Monocytes (Manual) 1.93 H (0.1-0.90) K/mm3 Absolute Eos (Manual) 0.96 H (0.02-0.50) K/mm3 H & H 02/02/25 02/03/25 02/04/25 Range/Units 06:52 07:33 08:11 Hgb 10.9 L 10.4 L 10.4 L (12.0-15.0) g/dL Hct 35.4 L 34.9 L 34.1 L (37.0-47.0) % All other labs normal.
[2025-02-04] MEDS: LORazepam (*CRX) 0.5 MG TABLET PO ×2 (11:23→18:00)
--- NOTE | 2025-02-04 12:28 | P.PNIM_ITS ---
Progress Note: A&P Assessment and Plan (1) Generalized body aches: Code(s): R52 - Pain, unspecified Status: Acute (2) Leukocytosis: Code(s): D72.829 - Elevated white blood cell count, unspecified Status: Acute Plan Possible metastatic disease possibly from prior breast ca presented with diffuse body aches Leukocytosis and night sweats Imaging showed diffuse sclerotic bone lesions suspicious for metastatic disease oncology eval noted, CA [address] chest and AP with contrast, showed metastatic bone disease and bilateral pleural effusion Bone scan showed multiple bone mets disease Bone biopsy Thursday Oncology and Ortho pending Dm2, diet controlled BG 140 A1c 5.6 Hx of Breast ca continue above care DVT prophylaxis on Sq Lovenox FUll code Subjective Date/time seen: 02/04/25 12:28 Interval history: Comfortable at bedside Review of Systems Review of Systems: All other systems were reviewed and negative except as noted in the HPI above Exam Narrative: General: alert and comfortable Eyes: EOMI, PERRLA ENNT External ears normal, Neck is supple, no masses, Respiratory systems: Clear to auscultation Cardiovascular S1, S2, normal rhythm, no murmur, rub, or gallop; no thrill or palpable murmurs on palpation. Gastrointestinal: soft, non-tender, and non-distended abdomen with no masses; BS present Skin: no rash, lesions, ulcerations, subcutaneous nodules or induration Musculoskeletal: no abnormality and no tenderness, normal ROM Neurologic: Alert and oriented x3, non focal Mental Status Exam: normal affect Objective Data Vital Signs Vital Signs: Vital Signs - 24 hr 02/03/25 14:00 02/03/25 20:00 02/03/25 22:00 Temperature 97.5 F L 97.2 F L Pulse Rate 90 94 94 Respiratory Rate 16 18 18 Blood Pressure 151/80 H 148/87 H Pulse Oximetry 97 96 96 Oxygen Delivery Room Air 02/04/25 06:00 02/04/25 08:26 Temperature 98.4 F 96.3 F L Pulse Rate 83 77 Respiratory Rate 18 16 Blood Pressure 153/89 H 147/75 H Pulse Oximetry 95 95 Oxygen Delivery Intake/Output Intake/Output: Intake & Output 02/01/25 02/02/25 02/03/25 02/04/25 23:59 23:59 23:59 23:59 Intake Total 2160 2670 550 Balance 2160 2670 550 Meds/Results Medications: Active Medications Generic Name Dose Route Start Last Admin Trade Name Freq PRN Reason Stop Dose Admin Acetaminophen 650 mg 02/02/25 10:09 Acetaminophen 325 Mg Tablet PO Q4H PRN Mild Pain (1-3) or Fever Enoxaparin Sodium 40 mg 02/03/25 09:00 02/04/25 09:49 Enoxaparin 40 Mg/0.4 Ml Syringe SUB-Q 40 mg DAILY RHIANNON Administration Sodium Chloride 1,000 mls @ 125 mls/hr 02/02/25 10:15 02/03/25 20:50 Normal Saline Iv IV CONT Not Given .Q8H RHIANNON Lorazepam 0.5 mg 02/03/25 19:34 02/04/25 11:23 Lorazepam (*Crx) 0.5 Mg Tablet PO 0.5 mg Q6H PRN Administration Anxiety Nicotine 1 patch 02/02/25 10:00 02/04/25 09:48 Nicotine (*Pbkc) 21 Mg Patch TRANSDERM 1 patch DAILY RHIANNON Administration Tramadol HCl 25 mg 02/02/25 22:06 Tramadol Hcl (*Crx) 25 Mg Tablet PO Q6H PRN Pain Rated 4-6 Radiology Results: ITS Impressions Chest X-Ray 02/02/25 08:07 Impression: Linear scarring left midlung. Suggestion of sclerotic change of the bilateral humeral heads, right worse than left. Diagnostic considerations could include avascular necrosis, or possibly osteoblastic metastatic disease. Consider dedicated shoulder radiographs. Soft Tissue Neck CT 02/02/25 08:09 Impression: No significant abnormalities noted. Lumbar Spine X-Ray 02/02/25 09:59 IMPRESSION: 1. Diffuse sclerosis of the bones suspicious for metastatic disease in this patient with known history of prior breast cancer. 2. Mild thoracic and lumbar spondylosis. 3. Couple healing fractures of the lateral left third and seventh ribs which may be pathologic. 4. Very small bilateral pleural effusions. Thoracic Spine X-Ray 02/02/25 09:59 IMPRESSION: 1. Diffuse sclerosis of the bones suspicious for metastatic disease in this patient with known history of prior breast cancer. 2. Mild thoracic and lumbar spondylosis. 3. Couple healing fractures of the lateral left third and seventh ribs which may be pathologic. 4. Very small bilateral pleural effusions. Bone Scan Nuclear Medicine 02/03/25 14:58 IMPRESSION: 1. Heterogeneous pattern of diffuse increased uptake in the axial and proximal appendicular skeleton corresponding to the widespread sclerosis of the bones and which is consistent with metastatic disease. Chest/Abdomen/Pelvis CTA 02/04/25 10:12 IMPRESSION: 1. Innumerable diffusely scattered sclerotic lesions throughout the visualized bones consistent with widespread osseous metastatic disease. 2. Change of prior right breast excisional biopsy and right axillary lymph node dissection for reported breast cancer. No other lesions suspicious for primary malignancy or nonosseous metastatic disease in the chest, abdomen or pelvis. 3. Small bilateral pleural effusions, right greater than left. Labs Labs: Laboratory Results - last 24 hr 02/04/25 08:11 WBC 32.2 H RBC 3.36 L Hgb 10.4 L Hct 34.1 L MCV 101.5 H MCH 31.0 MCHC 30.5 L RDW 17.4 H Plt Count 166 MPV 10.5 H Immature Gran % (Auto) Not Reportable Neut % (Auto) Not Reportable Lymph % (Auto) Not Reportable [place] % (Auto) Not Reportable Eos % (Auto) Not Reportable Baso % (Auto) Not Reportable Lymph # (Auto) Not Reportable [place] # (Auto) Not Reportable Eos # (Auto) Not Reportable Baso # (Auto) Not Reportable Abs Immat Gran (auto) Not Reportable Absolute Neuts (auto) Not Reportable Absolute Nucleated RBC Not Reportable Total Counted 100 Neutrophils % (Manual) 43 L Band Neutrophils % 30 H Lymphocytes % (Manual) 10 L Monocytes % (Manual) 6 Eosinophils % (Manual) 3 Metamyelocytes % 8 Nucleated RBC % Not Reportable Abs Neuts (Manual) 23.50 H Abs Lymphs (Manual) 3.22 Abs Monocytes (Manual) 1.93 H Absolute Eos (Manual) 0.96 H Nucleated RBCs 2 Platelet Estimate Adequate Hypochromasia 1+ Macrocytosis 1+ Schistocytes None seen Sodium Cancelled Potassium Cancelled Chloride Cancelled Carbon Dioxide Cancelled Anion Gap Cancelled BUN Cancelled Creatinine Cancelled Estim Creat Clear Calc Cancelled Estimated GFR Cancelled Glucose Cancelled Calcium Cancelled Total Bilirubin Cancelled AST Cancelled ALT Cancelled Alkaline Phosphatase Cancelled Total Protein Cancelled Albumin Cancelled
[2025-02-04 14:00] VITALS: BP 137/85; PULSE 85; RESP 16; TEMP 36.1; O2SAT 97
[2025-02-04 20:00] VITALS: PULSE 80; RESP 18; O2SAT 93
[2025-02-04 22:00] VITALS: BP 152/92; PULSE 80; RESP 18; TEMP 36.8; O2SAT 93
[2025-02-04] MEDS: ACETAMINOPHEN 325 MG TABLET 650 MG PO (23:52)
[2025-02-04] MEDS: traMADol HCL (*CRX) 25 MG TABLET PO (23:53)
[2025-02-05 06:00] VITALS: BP 126/76; PULSE 79; RESP 18; TEMP 36.4; O2SAT 96
[2025-02-05 06:09] LABS: CA 15-3. 2374 U/mL (<32)
[2025-02-05 07:11] LABS: Hematocrit 34.8 % (37.0-47.0); Hemoglobin 10.0 g/dL (12.0-15.0); Mean Corpuscular HGB Conc 28.7 g/dl (32-36); Mean Corpuscular Hemoglobin 31.1 pg (26-34); Mean Corpuscular Volume 108.1 fl (80-100); Platelet Count Result 149 k/mm3 (150-375); Red Blood Count 3.22 M/mm3 (4.2-5.4); White Blood Count 26.3 K/mm3 (4.5-10.0)
[2025-02-05 07:18] LABS: Alanine Aminotransferase 18 U/L (6-35); Albumin Level 3.5 g/dL (3.5-5.1); Alkaline Phosphatase 128 U/L (38-126); Anion Gap 13 mmol/L (4-12); Aspartate Amino Transferase 49 U/L (14-36); Bilirubin,Total 0.2 mg/dL (0.2-1.3); Blood Urea Nitrogen 13 mg/dL (7-17); Calcium 9.4 mg/dL (8.4-10.2); Carbon Dioxide 18 mmol/L (22-30); Chloride 109 mmol/L (98-107); Estimated CRCL calculation 80 ml/min; Estimated Glomerular Filt Rate > 60; Glucose 93 mg/dL (65-110); Magnesium 2.3 mg/dL (1.6-2.3); Potassium 4.0 mmol/L (3.4-5.0); Sodium 140 mmol/L (137-145); Total Protein 6.7 g/dL (6.3-8.2)
[2025-02-05 08:55] LABS: Band Neutrophils Percent 24 % (0-6); Basophils Absolute Manual 0.52 K/mm3 (0.0-0.1); Basophils Percent Manual 2 % (0-1); Lymphocytes Absolute Manual 3.68 K/mm3 (1.1-4.5); Lymphocytes Percent Manual 14 % (18-44); Metamyelocytes Percent 6 %; Monocytes Absolute Manual 0.52 K/mm3 (0.1-0.90); Monocytes Percent Manual 2 % (3-9); Myelocytes Percent 4 %; Total Cells Counted 100
[2025-02-05 08:57] LABS: Macrocytosis 1+ (NORMAL); Neutrophils Absolute Manual 19.46 K/mm3 (1.3-6.7); Neutrophils Percent Manual 50 % (46-73); Polychromasia 1+; Schistocytes None Seen
[2025-02-05] MEDS: NICOTINE (*PBKC) 21 MG PATCH 1 PATCH TRANSDERM (09:35)
[2025-02-05] MEDS: traMADol HCL (*CRX) 25 MG TABLET PO (10:53)
--- NOTE | 2025-02-05 11:23 | P.PNIM_ITS ---
Progress Note: A&P Assessment and Plan (1) Generalized body aches: Code(s): R52 - Pain, unspecified Status: Acute (2) Leukocytosis: Code(s): D72.829 - Elevated white blood cell count, unspecified Status: Acute Plan Possible metastatic disease possibly from prior breast ca presented with diffuse body aches Leukocytosis and night sweats Imaging showed diffuse sclerotic bone lesions suspicious for metastatic disease oncology eval noted, CA [address] chest and AP with contrast, showed metastatic bone disease and bilateral pleural effusion Bone scan showed multiple bone mets disease Bone biopsy Thursday Oncology and Ortho pending Dm2, diet controlled BG 140 A1c 5.6 Hx of Breast ca continue above care DVT prophylaxis on Sq Lovenox FUll code Subjective Date/time seen: 02/05/25 11:23 Interval history: Comfortable at bedside Review of Systems Review of Systems: All other systems were reviewed and negative except as noted in the HPI above Exam Narrative: General: alert and comfortable Eyes: EOMI, PERRLA ENNT External ears normal, Neck is supple, no masses, Respiratory systems: Clear to auscultation Cardiovascular S1, S2, normal rhythm, no murmur, rub, or gallop; no thrill or palpable murmurs on palpation. Gastrointestinal: soft, non-tender, and non-distended abdomen with no masses; BS present Skin: no rash, lesions, ulcerations, subcutaneous nodules or induration Musculoskeletal: no abnormality and no tenderness, normal ROM Neurologic: Alert and oriented x3, non focal Mental Status Exam: normal affect Objective Data Vital Signs Vital Signs: Vital Signs - 24 hr 02/04/25 14:00 02/04/25 20:00 02/04/25 22:00 Temperature 96.9 F L 98.2 F Pulse Rate 85 80 80 Respiratory Rate 16 18 18 Blood Pressure 137/85 152/92 H Pulse Oximetry 97 93 93 Oxygen Delivery Room Air 02/05/25 06:00 Temperature 97.6 F Pulse Rate 79 Respiratory Rate 18 Blood Pressure 126/76 Pulse Oximetry 96 Oxygen Delivery Intake/Output Intake/Output: Intake & Output 02/02/25 02/03/25 02/04/25 02/05/25 23:59 23:59 23:59 23:59 Intake Total 2160 2670 1550 540 Balance 2160 2670 1550 540 Meds/Results Medications: Active Medications Generic Name Dose Route Start Last Admin Trade Name Freq PRN Reason Stop Dose Admin Acetaminophen 650 mg 02/02/25 10:09 02/04/25 23:52 Acetaminophen 325 Mg Tablet PO 650 mg Q4H PRN Administration Mild Pain (1-3) or Fever Enoxaparin Sodium 40 mg 02/03/25 09:00 02/05/25 09:28 Enoxaparin 40 Mg/0.4 Ml Syringe SUB-Q Not Given DAILY RHIANNON Lorazepam 0.5 mg 02/03/25 19:34 02/04/25 18:00 Lorazepam (*Crx) 0.5 Mg Tablet PO 0.5 mg Q6H PRN Administration Anxiety Nicotine 1 patch 02/02/25 10:00 02/05/25 09:35 Nicotine (*Pbkc) 21 Mg Patch TRANSDERM 1 patch DAILY RHIANNON Administration Perflutren Lipid Microsphere 0 ml 02/04/25 12:28 Perflutren Lipid Microspheres 1.5 Ml Vial Diluted To 10 Ml Total Volume IV PUSH 02/07/25 12:28 ONCE PRN adequate visualization Protocol Tramadol HCl 25 mg 02/02/25 22:06 02/05/25 10:53 Tramadol Hcl (*Crx) 25 Mg Tablet PO 25 mg Q6H PRN Administration Pain Rated 4-6 Radiology Results: ITS Impressions Chest X-Ray 02/02/25 08:07 Impression: Linear scarring left midlung. Suggestion of sclerotic change of the bilateral humeral heads, right worse than left. Diagnostic considerations could include avascular necrosis, or possibly osteoblastic metastatic disease. Consider dedicated shoulder radiographs. Soft Tissue Neck CT 02/02/25 08:09 Impression: No significant abnormalities noted. Lumbar Spine X-Ray 02/02/25 09:59 IMPRESSION: 1. Diffuse sclerosis of the bones suspicious for metastatic disease in this patient with known history of prior breast cancer. 2. Mild thoracic and lumbar spondylosis. 3. Couple healing fractures of the lateral left third and seventh ribs which may be pathologic. 4. Very small bilateral pleural effusions. Thoracic Spine X-Ray 02/02/25 09:59 IMPRESSION: 1. Diffuse sclerosis of the bones suspicious for metastatic disease in this patient with known history of prior breast cancer. 2. Mild thoracic and lumbar spondylosis. 3. Couple healing fractures of the lateral left third and seventh ribs which may be pathologic. 4. Very small bilateral pleural effusions. Bone Scan Nuclear Medicine 02/03/25 14:58 IMPRESSION: 1. Heterogeneous pattern of diffuse increased uptake in the axial and proximal appendicular skeleton corresponding to the widespread sclerosis of the bones and which is consistent with metastatic disease. Chest/Abdomen/Pelvis CTA 02/04/25 10:12 IMPRESSION: 1. Innumerable diffusely scattered sclerotic lesions throughout the visualized bones consistent with widespread osseous metastatic disease. 2. Change of prior right breast excisional biopsy and right axillary lymph node dissection for reported breast cancer. No other lesions suspicious for primary malignancy or nonosseous metastatic disease in the chest, abdomen or pelvis. 3. Small bilateral pleural effusions, right greater than left. Labs Labs: Laboratory Results - last 24 hr 02/02/25 02/05/25 21:27 06:51 WBC 26.3 H RBC 3.22 L Hgb 10.0 L Hct 34.8 L MCV 108.1 H D MCH 31.1 MCHC 28.7 L RDW 17.6 H Plt Count 149 L MPV 10.4 Immature Gran % (Auto) Not Reportable Neut % (Auto) Not Reportable Lymph % (Auto) Not Reportable Ste[place] % (Auto) Not Reportable Eos % (Auto) Not Reportable Baso % (Auto) Not Reportable Lymph # (Auto) Not Reportable [place] # (Auto) Not Reportable Eos # (Auto) Not Reportable Baso # (Auto) Not Reportable Abs Immat Gran (auto) Not Reportable Absolute Neuts (auto) Not Reportable Absolute Nucleated RBC Not Reportable Total Counted 100 Neutrophils % (Manual) 50 Band Neutrophils % 24 H Lymphocytes % (Manual) 14 L Monocytes % (Manual) 2 L Basophils % (Manual) 2 H Metamyelocytes % 6 Myelocytes % 4 Nucleated RBC % Not Reportable Abs Neuts (Manual) 19.46 H Abs Lymphs (Manual) 3.68 Abs Monocytes (Manual) 0.52 Abs Basophils (Manual) 0.52 H Nucleated RBCs 12 Atypical Lymphocytes Present Platelet Estimate Adequate Polychromasia 1+ Macrocytosis 1+ Schistocytes None seen Sodium 140 Potassium 4.0 Chloride 109 H Carbon Dioxide 18 L Anion Gap 13 H BUN 13 Creatinine 0.67 L Estim Creat Clear Calc 80 Estimated GFR > 60 Glucose 93 Calcium 9.4 Magnesium 2.3 Total Bilirubin 0.2 AST 49 H ALT 18 Alkaline Phosphatase 128 H Total Protein 6.7 Albumin 3.5 CA 15-3 Antigen 2374 H
[2025-02-05 14:00] VITALS: BP 159/86; PULSE 69; RESP 18; TEMP 36.4; O2SAT 98
[2025-02-06] VITALS (16 sets, daily range): BP systolic 117–145; BP diastolic 64–79; PULSE 79–85; RESP 12–20; TEMP 36–36.7; O2SAT 93–100
--- NOTE | 2025-02-06 | ECHO_ITS ---
Patient Info Name: Lucila Conrad Age: 54 years : 1970 Gender: Female Ht: 62 in Wt: 175 lbs BSA: 1.90 m2 HR: 83 bpm BP: 145 / 73 mmHg Heart Rhythm: Sinus Rhythm Technical Quality: Fair Exam Date: 02/06/2025 2:22 PM Patient Status: I Admit Date: 02/04/2025 Exam Type: CA echo doppler color flow Complete two-dimensional, color flow and Doppler transthoracic echocardiogram is performed. Staff Referring Physician: Gabriel Brown Tunnel Inspector: Jazzy Barrera Attending Provider: Gabriel Brown Summary 1. Complete two-dimensional, color flow and Doppler transthoracic echocardiogram is performed. 2. Left ventricular chamber dimension is normal. 3. Left ventricular systolic function is normal, estimated at 60-65. 4. The left ventricular diastolic function is abnormal. 5. E/e' 15 is elevated. 6. No pulmonary hypertension, estimated pulmonary arterial systolic pressure is 30 mmHg. 7. There is small circumferential pericardial effusion. Left Ventricle E/e' 15 is elevated. Left ventricular chamber dimension is normal. Left ventricular systolic function is normal, estimated at 60-65. The left ventricular diastolic function is abnormal. Right Ventricle Right ventricular chamber dimension is normal. Right ventricular systolic function is normal. Left Atria Left atrial chamber dimension is normal. Right Atria Right atrial chamber dimension is normal. Aortic Valve The aortic valve is trileaflet. There is no aortic valve stenosis. There is no aortic valve regurgitation. Pulmonic Valve There is no pulmonic regurgitation. Mitral Valve There is no mitral valve stenosis. There is no mitral valve regurgitation. Tricuspid Valve There is no tricuspid valve regurgitation. No pulmonary hypertension, estimated pulmonary arterial systolic pressure is 30 mmHg. Pericardium/Pleural There is small circumferential pericardial effusion. No cardiac tamponade. No cardiac camponade. Inferior Vena Cava Normal inferior vena cava with >50% collapse upon inspiration consistent with normal right atrial pressure, 5 mmHg. Aorta The aortic root size at the sinus of Valsalva is normal. Left Ventricular Outflow Tract Name Value Normal LVOT 2D LVOT Diameter 2.0 cm LVOT Doppler LVOT Peak Velocity 119 cm/s LVOT Peak Gradient 6 mmHg LVOT Mean Gradient 3 mmHg LVOT VTI 22 cm LVOT VTI/AV VTI Ratio 0.8 LVOT Stroke Volume 66 ml LVOT CO 5.8 l/min LVOT CI 3.1 l/min/m2 Pulmonic Valve Name Value Normal RVOT Doppler RVOT Peak Velocity 95 cm/s RVOT Peak Gradient 4 mmHg PV Doppler PV Peak Velocity 101 cm/s PV Peak Gradient 4 mmHg Mitral Valve Name Value Normal MV Diastolic Function MV E Peak Velocity 111 cm/s MV A Peak Velocity 109 cm/s MV E/A 1.0 MV Decel Time (PW) 161 ms MV Annular TDI MV E/e' (Septal) 15.9 MV E/e' (Lateral) 15.2 MV E/e' (Average) 15.6 Tricuspid Valve Name Value Normal TV Regurgitation Doppler TR Peak Velocity 248 cm/s TR Peak Gradient 25 mmHg Estimated PAP/RSVP RA Pressure 5 mmHg <=5 PA Systolic Pressure 30 mmHg <36 RV Systolic Pressure 30 mmHg <36 TV Annular TDI TV Lateral Janie s' Velocity 16.4 cm/s >=9.5 Aortic Valve Name Value Normal AV Doppler AV Peak Velocity 174 cm/s AV Peak Gradient 12 mmHg AV Mean Gradient 7 mmHg AV VTI 29 cm AV Area (Cont Eq VTI) 2.3 cm2 >=3.0 AV Area (Cont Eq Salo) 2.1 cm2 AV DI (Salo) 0.68 AV Regurgitation 2D LVOT Area 3.0 cm2 Ventricles Name Value Normal LV Dimensions 2D/MM IVS Diastolic Thickness (2D) 0.8 cm 0.6-1.0 LVID Diastole (2D) 4.2 cm 3.8-5.2 LVIW Diastolic Thickness (2D) 0.8 cm 0.6-0.9 LVID Systole (2D) 2.9 cm 2.2-3.5 LVOT Diameter 2.0 cm LV Mass (2D Cubed) 106.10 g 67.00-162.00 LV Mass Index (2D Cubed) 56 g/m2 43-95 Relative Wall Thickness (2D) 0.40 <=0.42 LV Fractional Shortening/Ejection Fraction 2D/MM LV Fractional Shortening (2D) 32 % 27-45 LV EF (2D Teichholz) 61 % LV Diastolic Volume (4C MOD) 61 ml LV EF (4C MOD) 73 % LV Diastolic Volume (2C MOD) 40 ml LV EF (2C MOD) 71 % LV Diastolic Volume (BP MOD) 50 ml 46-106 LV Diastolic Volume Index (BP MOD) 26 ml/m2 29-61 LV Systolic Volume (BP MOD) 14 ml 14-42 LV Systolic Volume Index (BP MOD) 7 ml/m2 8-24 LV EF (BP MOD) 72 % 54-74 LV Diastolic Length (4C) 6.7 cm LV Systolic Length (4C) 5.6 cm LV Stroke Volume (4C MOD) 45 ml Atria Name Value Normal LA Dimensions LA Volume (4C A-L) 34 ml LA Volume (BP A-L) 40 ml RA Dimensions RA Area (4C) 11.8 cm2 <=18.0 Report Signatures
[2025-02-06] MEDS: LORazepam (*CRX) 0.5 MG TABLET PO ×2 (04:37→18:19)
[2025-02-06 06:44] LABS: Hematocrit 32.0 % (37.0-47.0); Hemoglobin 9.8 g/dL (12.0-15.0); Mean Corpuscular HGB Conc 30.6 g/dl (32-36); Mean Corpuscular Hemoglobin 31.0 pg (26-34); Mean Corpuscular Volume 101.3 fl (80-100); Platelet Count Result 148 k/mm3 (150-375); Red Blood Count 3.16 M/mm3 (4.2-5.4); White Blood Count 25.0 K/mm3 (4.5-10.0)
[2025-02-06 06:57] LABS: Alanine Aminotransferase 19 U/L (6-35); Albumin Level 3.6 g/dL (3.5-5.1); Alkaline Phosphatase 138 U/L (38-126); Anion Gap 9 mmol/L (4-12); Aspartate Amino Transferase 52 U/L (14-36); Bilirubin,Total 0.3 mg/dL (0.2-1.3); Blood Urea Nitrogen 18 mg/dL (7-17); Calcium 9.4 mg/dL (8.4-10.2); Carbon Dioxide 24 mmol/L (22-30); Chloride 105 mmol/L (98-107); Estimated CRCL calculation 72 ml/min; Estimated Glomerular Filt Rate > 60; Glucose 106 mg/dL (65-110); Magnesium 2.1 mg/dL (1.6-2.3); Potassium 3.9 mmol/L (3.4-5.0); Sodium 138 mmol/L (137-145); Total Protein 7.0 g/dL (6.3-8.2)
[2025-02-06 07:22] LABS: Band Neutrophils Percent 32 % (0-6); Eosinophils Absolute Manual 0.50 K/mm3 (0.02-0.50); Eosinophils Percent Manual 2 % (0-4); Lymphocytes Absolute Manual 7.00 K/mm3 (1.1-4.5); Lymphocytes Percent Manual 28 % (18-44); Metamyelocytes Percent 2 %; Monocytes Absolute Manual 1.50 K/mm3 (0.1-0.90); Monocytes Percent Manual 6 % (3-9); Neutrophils Absolute Manual 14.50 K/mm3 (1.3-6.7); Neutrophils Percent Manual 26 % (46-73); Promyelocytes Percent 1 %; Total Cells Counted 100
[2025-02-06 07:23] LABS: Hypochromasia 1+
[2025-02-06 07:24] LABS: Anisocytosis 1+; Schistocytes None Seen
[2025-02-06] MEDS: SODIUM CHLORIDE 0.9% IV 500 ML 30 ML (11:35)
[2025-02-06] MEDS: MIDAZOLAM HCL (*CRX) 2 MG/2 ML VIAL 1 MG IV PUSH ×3 (11:44→12:10)
[2025-02-06] MEDS: fentaNYL CITRATE INJ (*CRX) 100 MCG/2 ML VIAL 50 MCG IV PUSH ×4 (11:44→12:23)
--- NOTE | 2025-02-06 12:57 | S_PTH ---
PATIENT: Lucila Conrad LOC: [id number] U#:[id number] AGE/SX: 54/F ROOM: 322 RE02/04/[address]: Karly Acosta APRN : 1970 BED: 01 DIS: 02/07/2025 SPEC #: [id number] RECD: 02/06/25 13:17 STATUS: SUSHIL REQ #: [id number] YU: 02/06/25 12:[address]: Miguel Angel Salmon DEPT: [facility] Surgical RECD BY: Solange Fung ENTERED: 02/06/25 13:18 SP TYPE: Surgical OTHR DR: MD Clarita Espana, MD Chinedu Daniels MD Tissues: A - Bone Biopsy Procedures: Lara Keratin Hematoxylin and Eosin Stain Estrogen Receptor Immuno Gross and Microscopic Level 5 SOX 10 Decalcification VALERIE-EP4 CK 7 KATARINA-3
--- NOTE | 2025-02-06 14:23 | PM.IMPN ---
Progress Note: A&P Assessment and Plan (1) Generalized body aches: Code(s): R52 - Pain, unspecified Status: Acute (2) Leukocytosis: Code(s): D72.829 - Elevated white blood cell count, unspecified Status: Acute Plan Possible metastatic disease possibly from prior breast ca presented with diffuse body aches Leukocytosis and night sweats Imaging showed diffuse sclerotic bone lesions suspicious for metastatic disease CT chest and AP with contrast, showed metastatic bone disease and bilateral pleural effusion Bone scan showed multiple bone mets disease Bone biopsy today awaiting pathology Oncology and Ortho pending Leukocytosis with mild Thrombocytopenia and Anemia WBC 25, Hb 9.8, plts [address] Salmon following monitor Dm2, diet controlled BG 140 A1c 5.6 Hx of Breast ca continue above care DVT prophylaxis on Sq Lovenox Full code Subjective Date/time seen: 02/06/25 14:23 Interval history: Comfortable at bedside Review of Systems Review of Systems: All other systems were reviewed and negative except as noted in the HPI above Exam Narrative: General: alert and comfortable Eyes: EOMI, PERRLA ENNT External ears normal, Neck is supple, no masses, Respiratory systems: Clear to auscultation Cardiovascular S1, S2, normal rhythm, no murmur, rub, or gallop; no thrill or palpable murmurs on palpation. Gastrointestinal: soft, non-tender, and non-distended abdomen with no masses; BS present Skin: no rash, lesions, ulcerations, subcutaneous nodules or induration Musculoskeletal: no abnormality and no tenderness, normal ROM Neurologic: Alert and oriented x3, non focal Mental Status Exam: normal affect Objective Data Vital Signs Vital Signs: Vital Signs - 24 hr 02/05/25 20:00 02/06/25 06:00 02/06/25 08:00 Temperature 96.8 F L Pulse Rate 83 83 Respiratory Rate 18 18 Blood Pressure 145/73 H Pulse Oximetry 94 94 Oxygen Delivery Room Air Room Air Oxygen Flow Rate 02/06/25 11:35 02/06/25 11:45 02/06/25 11:50 Temperature Pulse Rate 80 79 80 Respiratory Rate 15 17 14 Blood Pressure 137/73 138/74 139/78 Pulse Oximetry 98 100 100 Oxygen Delivery Nasal Cannula Nasal Cannula Nasal Cannula Oxygen Flow Rate 2 2 2 02/06/25 11:55 02/06/25 12:00 02/06/25 12:05 Temperature Pulse Rate 80 80 80 Respiratory Rate 12 20 16 Blood Pressure 126/75 119/78 135/73 Pulse Oximetry 98 98 97 Oxygen Delivery Nasal Cannula Nasal Cannula Nasal Cannula Oxygen Flow Rate 2 2 2 02/06/25 12:10 02/06/25 12:15 02/06/25 12:20 Temperature Pulse Rate 82 82 84 Respiratory Rate 15 17 17 Blood Pressure 117/72 129/78 130/79 Pulse Oximetry 94 93 99 Oxygen Delivery Nasal Cannula Nasal Cannula Nasal Cannula Oxygen Flow Rate 2 2 2 02/06/25 12:25 02/06/25 12:30 02/06/25 12:45 Temperature Pulse Rate 81 85 85 Respiratory Rate 13 18 18 Blood Pressure 135/77 136/79 139/75 Pulse Oximetry 100 100 96 Oxygen Delivery Nasal Cannula Nasal Cannula Room Air Oxygen Flow Rate 2 2 Intake/Output Intake/Output: Intake & Output 02/03/25 02/04/25 02/05/25 02/06/25 23:59 23:59 23:59 23:59 Intake Total 2670 1550 1020 300 Balance 2670 1550 1020 300 Meds/Results Medications: Active Medications Generic Name Dose Route Start Last Admin Trade Name Freq PRN Reason Stop Dose Admin Acetaminophen 650 mg 02/02/25 10:09 02/04/25 23:52 Acetaminophen 325 Mg Tablet PO 650 mg Q4H PRN Administration Mild Pain (1-3) or Fever Enoxaparin Sodium 40 mg 02/03/25 09:00 02/06/25 11:05 Enoxaparin 40 Mg/0.4 Ml Syringe SUB-Q Not Given DAILY RHIANNON Lorazepam 0.5 mg 02/03/25 19:34 02/06/25 04:37 Lorazepam (*Crx) 0.5 Mg Tablet PO 0.5 mg Q6H PRN Administration Anxiety Nicotine 1 patch 02/02/25 10:00 02/05/25 09:35 Nicotine (*Pbkc) 21 Mg Patch TRANSDERM 1 patch DAILY RHIANNON Administration Perflutren Lipid Microsphere 0 ml 02/04/25 12:28 Perflutren Lipid Microspheres 1.5 Ml Vial Diluted To 10 Ml Total Volume IV PUSH 02/07/25 12:28 ONCE PRN adequate visualization Protocol Tramadol HCl 25 mg 02/02/25 22:06 02/05/25 10:53 Tramadol Hcl (*Crx) 25 Mg Tablet PO 25 mg Q6H PRN Administration Pain Rated 4-6 Radiology Results: ITS Impressions Chest X-Ray 02/02/25 08:07 Impression: Linear scarring left midlung. Suggestion of sclerotic change of the bilateral humeral heads, right worse than left. Diagnostic considerations could include avascular necrosis, or possibly osteoblastic metastatic disease. Consider dedicated shoulder radiographs. Soft Tissue Neck CT 02/02/25 08:09 Impression: No significant abnormalities noted. Lumbar Spine X-Ray 02/02/25 09:59 IMPRESSION: 1. Diffuse sclerosis of the bones suspicious for metastatic disease in this patient with known history of prior breast cancer. 2. Mild thoracic and lumbar spondylosis. 3. Couple healing fractures of the lateral left third and seventh ribs which may be pathologic. 4. Very small bilateral pleural effusions. Thoracic Spine X-Ray 02/02/25 09:59 IMPRESSION: 1. Diffuse sclerosis of the bones suspicious for metastatic disease in this patient with known history of prior breast cancer. 2. Mild thoracic and lumbar spondylosis. 3. Couple healing fractures of the lateral left third and seventh ribs which may be pathologic. 4. Very small bilateral pleural effusions. Bone Scan Nuclear Medicine 02/03/25 14:58 IMPRESSION: 1. Heterogeneous pattern of diffuse increased uptake in the axial and proximal appendicular skeleton corresponding to the widespread sclerosis of the bones and which is consistent with metastatic disease. Chest/Abdomen/Pelvis CTA 02/04/25 10:12 IMPRESSION: 1. Innumerable diffusely scattered sclerotic lesions throughout the visualized bones consistent with widespread osseous metastatic disease. 2. Change of prior right breast excisional biopsy and right axillary lymph node dissection for reported breast cancer. No other lesions suspicious for primary malignancy or nonosseous metastatic disease in the chest, abdomen or pelvis. 3. Small bilateral pleural effusions, right greater than left. Bone Biopsy CT 02/06/25 13:55 IMPRESSION: 1. Successful CT-guided deep bone biopsy of the right femur, as detailed above. The patient was awakened in their sedation and transferred to the recovery area in stable condition. Labs Labs: Laboratory Results - last 24 hr 02/06/25 05:55 WBC 25.0 H RBC 3.16 L Hgb 9.8 L Hct 32.0 L MCV 101.3 H D MCH 31.0 MCHC 30.6 L RDW 17.7 H Plt Count 148 L MPV 10.1 Immature Gran % (Auto) Not Reportable Neut % (Auto) Not Reportable Lymph % (Auto) Not Reportable [place] % (Auto) Not Reportable Eos % (Auto) Not Reportable Baso % (Auto) Not Reportable Lymph # (Auto) Not Reportable [place] # (Auto) Not Reportable Eos # (Auto) Not Reportable Baso # (Auto) Not Reportable Abs Immat Gran (auto) Not Reportable Absolute Neuts (auto) Not Reportable Absolute Nucleated RBC Not Reportable Total Counted 100 Neutrophils % (Manual) 26 L Band Neutrophils % 32 H Lymphocytes % (Manual) 28 Monocytes % (Manual) 6 Eosinophils % (Manual) 2 Metamyelocytes % 2 Promyelocytes % (Man) 1 Nucleated RBC % Not Reportable Abs Neuts (Manual) 14.50 H Abs Lymphs (Manual) 7.00 H Abs Monocytes (Manual) 1.50 H Absolute Eos (Manual) 0.50 Nucleated RBCs 4 Platelet Estimate Adequate Hypochromasia 1+ Anisocytosis 1+ Schistocytes None seen Sodium 138 Potassium 3.9 Chloride 105 Carbon Dioxide 24 Anion Gap 9 BUN 18 H Creatinine 0.76 Estim Creat Clear Calc 72 Estimated GFR > 60 Glucose 106 Calcium 9.4 Magnesium 2.1 Total Bilirubin 0.3 AST 52 H ALT 19 Alkaline Phosphatase 138 H Total Protein 7.0 Albumin 3.6
[2025-02-06] MEDS: traMADol HCL (*CRX) 25 MG TABLET PO (18:19)
[2025-02-07] MEDS: LORazepam (*CRX) 0.5 MG TABLET PO (00:40)
[2025-02-07] MEDS: traMADol HCL (*CRX) 25 MG TABLET PO (00:40)
[2025-02-07 06:00] VITALS: BP 138/69; PULSE 78; RESP 18; TEMP 35.7; O2SAT 92
[2025-02-07 06:17] LABS: Hematocrit 32.3 % (37.0-47.0); Hemoglobin 9.8 g/dL (12.0-15.0); Mean Corpuscular HGB Conc 30.3 g/dl (32-36); Mean Corpuscular Hemoglobin 30.7 pg (26-34); Mean Corpuscular Volume 101.3 fl (80-100); Platelet Count Result 135 k/mm3 (150-375); Red Blood Count 3.19 M/mm3 (4.2-5.4); White Blood Count 24.5 K/mm3 (4.5-10.0)
[2025-02-07 06:37] LABS: Alanine Aminotransferase 22 U/L (6-35); Albumin Level 3.7 g/dL (3.5-5.1); Alkaline Phosphatase 131 U/L (38-126); Anion Gap 9 mmol/L (4-12); Aspartate Amino Transferase 51 U/L (14-36); Bilirubin,Total 0.4 mg/dL (0.2-1.3); Blood Urea Nitrogen 13 mg/dL (7-17); Calcium 9.5 mg/dL (8.4-10.2); Carbon Dioxide 25 mmol/L (22-30); Chloride 104 mmol/L (98-107); Estimated CRCL calculation 78 ml/min; Estimated Glomerular Filt Rate > 60; Glucose 107 mg/dL (65-110); Magnesium 2.1 mg/dL (1.6-2.3); Potassium 4.1 mmol/L (3.4-5.0); Sodium 138 mmol/L (137-145); Total Protein 7.2 g/dL (6.3-8.2)
[2025-02-07 06:58] LABS: Band Neutrophils Percent 25 % (0-6); Basophils Absolute Manual 0.73 K/mm3 (0.0-0.1); Basophils Percent Manual 3 % (0-1); Eosinophils Absolute Manual 1.47 K/mm3 (0.02-0.50); Eosinophils Percent Manual 6 % (0-4); Lymphocytes Absolute Manual 5.63 K/mm3 (1.1-4.5); Lymphocytes Percent Manual 23 % (18-44); Metamyelocytes Percent 3 %; Monocytes Absolute Manual 0.98 K/mm3 (0.1-0.90); Monocytes Percent Manual 4 % (3-9); Neutrophils Absolute Manual 14.94 K/mm3 (1.3-6.7); Neutrophils Percent Manual 36 % (46-73); Total Cells Counted 100
[2025-02-07 06:59] LABS: Anisocytosis 1+; Schistocytes None Seen
[2025-02-07] MEDS: NICOTINE (*PBKC) 21 MG PATCH 1 PATCH TRANSDERM (08:09)
--- NOTE | 2025-02-07 08:10 | PM.IMPN ---
Progress Note: A&P Assessment and Plan (1) Generalized body aches: Code(s): R52 - Pain, unspecified Status: Acute (2) Leukocytosis: Code(s): D72.829 - Elevated white blood cell count, unspecified Status: Acute Plan Possible metastatic disease possibly from prior breast ca presented with diffuse body aches Leukocytosis and night sweats Imaging showed diffuse sclerotic bone lesions suspicious for metastatic disease CT chest and AP with contrast, showed metastatic bone disease and bilateral pleural effusion Bone scan showed multiple bone mets disease Bone biopsy today awaiting pathology Oncology and Ortho pending Leukocytosis with mild Thrombocytopenia and Anemia WBC 25, Hb 9.8, plts [address] Salmon following monitor Dm2, diet controlled BG 140 A1c 5.6 Hx of Breast ca continue above care DVT prophylaxis on Sq Lovenox Full code Subjective Date/time seen: 02/07/25 08:10 Interval history: Comfortable at bedside Review of Systems Review of Systems: All other systems were reviewed and negative except as noted in the HPI above Exam Narrative: General: alert and comfortable Eyes: EOMI, PERRLA ENNT External ears normal, Neck is supple, no masses, Respiratory systems: Clear to auscultation Cardiovascular S1, S2, normal rhythm, no murmur, rub, or gallop; no thrill or palpable murmurs on palpation. Gastrointestinal: soft, non-tender, and non-distended abdomen with no masses; BS present Skin: no rash, lesions, ulcerations, subcutaneous nodules or induration Musculoskeletal: no abnormality and no tenderness, normal ROM Neurologic: Alert and oriented x3, non focal Mental Status Exam: normal affect Objective Data Vital Signs Vital Signs: Vital Signs - 24 hr 02/06/25 11:35 02/06/25 11:45 02/06/25 11:50 Temperature Pulse Rate 80 79 80 Respiratory Rate 15 17 14 Blood Pressure 137/73 138/74 139/78 Pulse Oximetry 98 100 100 Oxygen Delivery Nasal Cannula Nasal Cannula Nasal Cannula Oxygen Flow Rate 2 2 2 02/06/25 11:55 02/06/25 12:00 02/06/25 12:05 Temperature Pulse Rate 80 80 80 Respiratory Rate 12 20 16 Blood Pressure 126/75 119/78 135/73 Pulse Oximetry 98 98 97 Oxygen Delivery Nasal Cannula Nasal Cannula Nasal Cannula Oxygen Flow Rate 2 2 2 02/06/25 12:10 02/06/25 12:15 02/06/25 12:20 Temperature Pulse Rate 82 82 84 Respiratory Rate 15 17 17 Blood Pressure 117/72 129/78 130/79 Pulse Oximetry 94 93 99 Oxygen Delivery Nasal Cannula Nasal Cannula Nasal Cannula Oxygen Flow Rate 2 2 2 02/06/25 12:25 02/06/25 12:30 02/06/25 12:45 Temperature Pulse Rate 81 85 85 Respiratory Rate 13 18 18 Blood Pressure 135/77 136/79 139/75 Pulse Oximetry 100 100 96 Oxygen Delivery Nasal Cannula Nasal Cannula Room Air Oxygen Flow Rate 2 2 02/06/25 14:00 02/06/25 21:00 02/06/25 22:00 Temperature 97.6 F 98.1 F Pulse Rate 80 84 Respiratory Rate 18 18 Blood Pressure 130/70 126/64 Pulse Oximetry 97 94 Oxygen Delivery Room Air Oxygen Flow Rate 02/07/25 06:00 Temperature 96.2 F L Pulse Rate 78 Respiratory Rate 18 Blood Pressure 138/69 Pulse Oximetry 92 Oxygen Delivery Oxygen Flow Rate Intake/Output Intake/Output: Intake & Output 02/04/25 02/05/25 02/06/25 02/07/25 23:59 23:59 23:59 23:59 Intake Total 1550 1020 1020 550 Balance 1550 1020 1020 550 Meds/Results Medications: Active Medications Generic Name Dose Route Start Last Admin Trade Name Freq PRN Reason Stop Dose Admin Acetaminophen 650 mg 02/02/25 10:09 02/04/25 23:52 Acetaminophen 325 Mg Tablet PO 650 mg Q4H PRN Administration Mild Pain (1-3) or Fever Enoxaparin Sodium 40 mg 02/03/25 09:00 02/06/25 11:05 Enoxaparin 40 Mg/0.4 Ml Syringe SUB-Q Not Given DAILY RHIANNON Lorazepam 0.5 mg 02/03/25 19:34 02/07/25 00:40 Lorazepam (*Crx) 0.5 Mg Tablet PO 0.5 mg Q6H PRN Administration Anxiety Nicotine 1 patch 02/02/25 10:00 02/07/25 08:09 Nicotine (*Pbkc) 21 Mg Patch TRANSDERM 1 patch DAILY RHIANNON Administration Perflutren Lipid Microsphere 0 ml 02/04/25 12:28 Perflutren Lipid Microspheres 1.5 Ml Vial Diluted To 10 Ml Total Volume IV PUSH 02/07/25 12:28 ONCE PRN adequate visualization Protocol Tramadol HCl 25 mg 02/02/25 22:06 02/07/25 00:40 Tramadol Hcl (*Crx) 25 Mg Tablet PO 25 mg Q6H PRN Administration Pain Rated 4-6 Radiology Results: ITS Impressions Chest X-Ray 02/02/25 08:07 Impression: Linear scarring left midlung. Suggestion of sclerotic change of the bilateral humeral heads, right worse than left. Diagnostic considerations could include avascular necrosis, or possibly osteoblastic metastatic disease. Consider dedicated shoulder radiographs. Soft Tissue Neck CT 02/02/25 08:09 Impression: No significant abnormalities noted. Lumbar Spine X-Ray 02/02/25 09:59 IMPRESSION: 1. Diffuse sclerosis of the bones suspicious for metastatic disease in this patient with known history of prior breast cancer. 2. Mild thoracic and lumbar spondylosis. 3. Couple healing fractures of the lateral left third and seventh ribs which may be pathologic. 4. Very small bilateral pleural effusions. Thoracic Spine X-Ray 02/02/25 09:59 IMPRESSION: 1. Diffuse sclerosis of the bones suspicious for metastatic disease in this patient with known history of prior breast cancer. 2. Mild thoracic and lumbar spondylosis. 3. Couple healing fractures of the lateral left third and seventh ribs which may be pathologic. 4. Very small bilateral pleural effusions. Bone Scan Nuclear Medicine 02/03/25 14:58 IMPRESSION: 1. Heterogeneous pattern of diffuse increased uptake in the axial and proximal appendicular skeleton corresponding to the widespread sclerosis of the bones and which is consistent with metastatic disease. Chest/Abdomen/Pelvis CTA 02/04/25 10:12 IMPRESSION: 1. Innumerable diffusely scattered sclerotic lesions throughout the visualized bones consistent with widespread osseous metastatic disease. 2. Change of prior right breast excisional biopsy and right axillary lymph node dissection for reported breast cancer. No other lesions suspicious for primary malignancy or nonosseous metastatic disease in the chest, abdomen or pelvis. 3. Small bilateral pleural effusions, right greater than left. Bone Biopsy CT 02/06/25 13:55 IMPRESSION: 1. Successful CT-guided deep bone biopsy of the right femur, as detailed above. The patient was awakened in their sedation and transferred to the recovery area in stable condition. Labs Labs: Laboratory Results - last 24 hr 02/07/25 06:03 WBC 24.5 H RBC 3.19 L Hgb 9.8 L Hct 32.3 L MCV 101.3 H MCH 30.7 MCHC 30.3 L RDW 17.5 H Plt Count 135 L MPV 9.5 Immature Gran % (Auto) Not Reportable Neut % (Auto) Not Reportable Lymph % (Auto) Not Reportable [place] % (Auto) Not Reportable Eos % (Auto) Not Reportable Baso % (Auto) Not Reportable Lymph # (Auto) Not Reportable [place] # (Auto) Not Reportable Eos # (Auto) Not Reportable Baso # (Auto) Not Reportable Abs Immat Gran (auto) Not Reportable Absolute Neuts (auto) Not Reportable Absolute Nucleated RBC Not Reportable Total Counted 100 Neutrophils % (Manual) 36 L Band Neutrophils % 25 H Lymphocytes % (Manual) 23 Monocytes % (Manual) 4 Eosinophils % (Manual) 6 H Basophils % (Manual) 3 H Metamyelocytes % 3 Nucleated RBC % Not Reportable Abs Neuts (Manual) 14.94 H Abs Lymphs (Manual) 5.63 H Abs Monocytes (Manual) 0.98 H Absolute Eos (Manual) 1.47 H Abs Basophils (Manual) 0.73 H Nucleated RBCs 7 Platelet Estimate Slightly decreased Anisocytosis 1+ Schistocytes None seen Sodium 138 Potassium 4.1 Chloride 104 Carbon Dioxide 25 Anion Gap 9 BUN 13 D Creatinine 0.69 L Estim Creat Clear Calc 78 Estimated GFR > 60 Glucose 107 Calcium 9.5 Magnesium 2.1 Total Bilirubin 0.4 AST 51 H ALT 22 Alkaline Phosphatase 131 H Total Protein 7.2 Albumin 3.7
--- NOTE | 2025-02-07 11:30 | PM.DS ---
DS: Admitting Diagnosis Discharge Date 02/07/2025 Admitting Diagnosis Generalized weakness Leukocytosis DS: Discharge Diagnosis Discharge Diagnosis (1) Generalized body aches: Code(s): R52 - Pain, unspecified Status: Acute Assessment and Plan: resolved (2) Leukocytosis: Code(s): D72.829 - Elevated white blood cell count, unspecified Status: Acute Assessment and Plan: Leukocytosis with mild Thrombocytopenia and Anemia Patient was on high dose steroid taper WBC 24.5, Hb 9.8, plts 148 workup per oncology with bone biopsy Dr Salmon following up outpatient (3) Bone and joint lesions of yaws: Code(s): A66.6 - Bone and joint lesions of yaws Status: Acute Assessment and Plan: Possible metastatic disease possibly from prior breast ca presented with diffuse body aches Leukocytosis and night sweats Imaging showed diffuse sclerotic bone lesions suspicious for metastatic disease CT chest and AP with contrast, showed metastatic bone disease and bilateral pleural effusion Bone scan showed multiple bone mets disease Bone biopsy 02/06/25 awaiting pathology - Oncology to follow up outpatient Oncology and Ortho (4) Bone lesion: Code(s): M89.9 - Disorder of bone, unspecified Status: Acute Assessment and Plan: Possible metastatic disease possibly from prior breast ca presented with diffuse body aches Leukocytosis and night sweats Imaging showed diffuse sclerotic bone lesions suspicious for metastatic disease CT chest and AP with contrast, showed metastatic bone disease and bilateral pleural effusion Bone scan showed multiple bone mets disease Bone biopsy 02/06/25 awaiting pathology - Oncology to follow up outpatient Oncology and Ortho Plan Dm2, diet controlled BG 140 A1c 5.6 DS: Summary Hospital Course Reason for hospitalization: elevated WBC, bone lesions Hospital Course: This is a 54 yo female with PMH of breast ca, DM2 who noted she controlled after about 30 lbs weight loss the past 4 months, presented to the ER on Elevated WBC and diffuse body pain. Patient report that about 3-4 months ago she started having left hip pain for which she was referred to the Director Of Software Development who diagnosed of RA and later discounted the diagnosis. About 3 weeks prior to arrival, she had dental infection and had her tooth removed. Post she has been following up with PCP who noted that her WBC has increased from 14 to 28 for which she was recommended to present to the ER for proper evaluation and care. Noted that she has been having diffuse body aches and night sweats last night . Otherwise patient denied any chest pain, vomiting, diarrhea, abdomen pain, dysuria or focal weakness. ER evaluation notable for stable vital signs within normal limits, WBC 28.8, Hb 10.9. Imaging showed diffuse sclerotic lesions with on bilateral humeral heads, and diffuse bone sclerotic lesions suspicious for metastatic disease. Patient on exam reported that for about a year, she has experienced progressive weakness/lethargy with excessive sleeping and generalized body aches. Patient has seen multiple providers including Dr Pat (Director Of Software Development), [employer] at [place], drilling manager. Orthopedist did evaluate the patient, and bone biopsy was performed on Thursday. Patient tolerated well. Oncology was consulted, patient had right-sided breast cancer status post lumpectomy in 2019 and then adjuvant radiation therapy treatment. She did not receive chemotherapy and endocrine therapy. Lumbar and thoracic spine x-rays were performed due to back pain that showed diffuse sclerosis of the bone suspicious for metastatic disease. On breast examination there is no evidence of masses and lymphadenopathy other than scarring in the right breast at 7 o'clock position. Oncology noted that her WBC was likely reactive secondary to generalized musculoskeletal discomfort and need recent use of the steroids. Oncology did check labs sedimentation rate and flow cytometric analysis for leukemia for review of patient This am patient was comfortable with discharge home. Labs are stable, she denies any distress or concerns. Oncology reported that he would follow up with her outpatient, ortho stated they could follow-up as needed. Assisting great detail with patient follow-up with Oncology as instructed. Continue to rest, and strenuous activity. Keep the biopsy site clean and dry, report any signs symptoms of infection. Return immediately to the emergency department any worrisome sign or symptom. Answered all questions to her satisfaction she is agreeable to this plan Status at Discharge Functional status at discharge: independent ambulation Overall status at discharge: patient is back to baseline Time Spent with Patient Time attestation: Total time spent providing and/or coordinating discharge services: Time spent: Greater than 30 minutes Exam Narrative: General: alert and comfortable Eyes: EOMI, PERRLA ENNT External ears normal, Neck is supple, no masses, Respiratory systems: Clear to auscultation Cardiovascular S1, S2, normal rhythm, no murmur, rub, or gallop; no thrill or palpable murmurs on palpation. Gastrointestinal: soft, non-tender, and non-distended abdomen with no masses; BS present Skin: no rash, lesions, ulcerations, subcutaneous nodules or induration Musculoskeletal: no abnormality and no tenderness, normal ROM Neurologic: Alert and oriented x3, non focal Mental Status Exam: normal affect DS: Data Data Completed and Pending Completed studies during hospitalization: Pending at discharge 02/02/25 18:10 Surgical [PTH] Routine Pending studies at discharge: Pending at discharge 02/06/25 12:57 Surgical [PTH] Routine Labs on day of discharge: Labs from last 24 hours 02/07/25 06:03 WBC 24.5 H RBC 3.19 L Hgb 9.8 L Hct 32.3 L MCV 101.3 H MCH 30.7 MCHC 30.3 L RDW 17.5 H Plt Count 135 L MPV 9.5 Immature Gran % (Auto) Not Reportable Neut % (Auto) Not Reportable Lymph % (Auto) Not Reportable [place] % (Auto) Not Reportable Eos % (Auto) Not Reportable Baso % (Auto) Not Reportable Lymph # (Auto) Not Reportable [place] # (Auto) Not Reportable Eos # (Auto) Not Reportable Baso # (Auto) Not Reportable Abs Immat Gran (auto) Not Reportable Absolute Neuts (auto) Not Reportable Absolute Nucleated RBC Not Reportable Total Counted 100 Neutrophils % (Manual) 36 L Band Neutrophils % 25 H Lymphocytes % (Manual) 23 Monocytes % (Manual) 4 Eosinophils % (Manual) 6 H Basophils % (Manual) 3 H Metamyelocytes % 3 Nucleated RBC % Not Reportable Abs Neuts (Manual) 14.94 H Abs Lymphs (Manual) 5.63 H Abs Monocytes (Manual) 0.98 H Absolute Eos (Manual) 1.47 H Abs Basophils (Manual) 0.73 H Nucleated RBCs 7 Platelet Estimate Slightly decreased Anisocytosis 1+ Schistocytes None seen Sodium 138 Potassium 4.1 Chloride 104 Carbon Dioxide 25 Anion Gap 9 BUN 13 D Creatinine 0.69 L Estim Creat Clear Calc 78 Estimated GFR > 60 Glucose 107 Calcium 9.5 Magnesium 2.1 Total Bilirubin 0.4 AST 51 H ALT 22 Alkaline Phosphatase 131 H Total Protein 7.2 Albumin 3.7 Preliminary micro results at discharge 02/02/25 14:55 Blood Culture - Preliminary Blood 02/02/25 15:00 Blood Culture - Preliminary Blood Discharge Plan Discharge Attending physician on discharge: Talia Araiza Consulting providers: Miguel Angel Salmon; Chinedu Daniels Discharging Clinician: Karly Acosta Anticipated Discharge Date/Time: 02/07/25 11:27 Patient Disposition: Home Activity: as tolerated Diet: as tolerated Discharge Instructions: keep biopsy site clean and report any signs or symptoms of infection to your Primary MD sean Follow up with your Primary MD in one week Call Oncologist office for appt. Return to ER with any worrisome sign or symptom. Patient Instructions: Antibiotic Form Patient Language: Bhutanese Stand Alone Forms: General Discharge Information Follow-up/Referrals: Miguel Angel Salmon MD [Physician] - Praveena,MD Clarita [Primary Care Provider] - Discharge Medications: Continued No Home Medications Date of admission: 02/04/25 16:39 Primary Care Provider: MariamClarita Admitting Provider: Gabriel Brown Attending physician on admission: Gabriel Brown Condition: Stable Quality VTE Prophylaxis VTE prophylaxis: pharmacologic ordered If No VTE Prophylaxis Answer both mechanical and pharmacologic: Reason no mechanical VTE proph: low risk/not indicated Reason no pharmacologic proph: low risk/not indicated Hospitalist MIPS Heart Failure (Exclusion) Patient has history of Heart Transplant or Left Ventricular Assistive Device?: No IF YES, STOP HERE Heart Failure (Qualifier) Patient has current or prior documentation of LVEF less than or equal to 40%, or mod/servere depressed LVSF?: No IF NO, STOP HERE
== END 2025-02-07 11:45 | disposition home or self-care (01) | DRG 479 ==
LOC: ANHED 09:30 → ANH3MEDSUR 10:53
PROVIDERS: Emergency Medicine; Internal Medicine Hematology & Oncology; Radiology Diagnostic Radiology; Admitting Provider Internal Medicine; Emergency Provider Emergency Medicine; PCP Internal Medicine; Visit Provider Nurse Practitioner Family
PROC: (CPT 77012; principal; 2025-02-03 12:00)
PROC: 0QB63ZX Excision of Right Upper Femur, Percutaneous Approach, Diagnostic (ICD-10-PCS; CPT 77012; principal; 2025-02-06 11:00)
DX: C79.51 Secondary malignant neoplasm of bone (principal); G89.3 Neoplasm related pain (acute) (chronic); D72.829 Elevated white blood cell count, unspecified; D69.6 Thrombocytopenia, unspecified; E11.9 Type 2 diabetes mellitus without complications; F17.210 Nicotine dependence, cigarettes, uncomplicated; Z85.3 Personal history of malignant neoplasm of breast
CPT/HCPCS: 20225; 36415; 70490; 71046; 71275; 72072; 72100; 73030; 73521; 73560; 74174; 77012; 78306; 80053; 81001; 82550; 83036; 83605; 83735; 85025; 86140; 86300; 87040; 88184; 88307; 88311; 88342; 93306; 96372; 96374; 96375; 99239; 99285; A9270; A9503; G0378; J1200; J1650; J2250; J3010; J7030; J7040; Q9967

== ENCOUNTER 2025-02-21 15:47 | Outpatient (CLI) | payer BC, SELFPAY ==
--- OUTSIDE RECORDS SUMMARY | 2025-02-21 15:50 | XMS_ITS | Clinical Summary ---
Author Organization [facility] Address [address] [place] [address] Care Team Providers Care Senior Security Architect Name Role Phone Clarita Grissom MD Primary Care Provider [phone] Allergies Active Allergy Reactions Criticality Noted Date Comments Iodinated Contrast Media Hives High 04/13/2019 Medications aspirin 81 MG chewable tablet Chew 1 tablet (81 mg total) by mouth daily. Active metFORMIN ER (GLUCOPHAGE-XR) 500 MG 24 hr tabletIndications: Type 2 diabetes mellitus without complication, without long-term current use of insulin ([facility]) Take 1 tablet (500 mg total) by mouth daily with breakfast. 30 tablet 2 11/16/19 25 Active Additional Information Patient not taking.Reported on 01/09/2025 clobetasol (TEMOVATE) 0.05 % external solution APPLY TO THE AFFECTED AREA TWICE DAILY FOR 2 WEEKS DIRECTED 11/30/19 25 Active traMADol (ULTRAM) 50 MG tablet Take 1 tablet (50 mg total) by mouth 2 (two) times daily as needed. 12/28/19 25 Active fish oil (OMEGA-3 FATTY ACID) 1000 MG Cap capsule Take 1 capsule (1,000 mg total) by mouth 2 (two) times daily. Active Vitamin D3 (VITAMIN D) 50 mcg tablet Take 1 tablet (50 mcg total) by mouth daily. Active rosuvastatin (CRESTOR) 10 MG tabletIndications: Other hyperlipidemia Take 1 tablet (10 mg total) by mouth nightly at bedtime. 90 tablet 01/11/20 25 Active Active Problems Problem Noted Date Diagnosed Date Anemia in other chronic diseases classified else where 11/15/2024 Assessment & Plan (01/09/2025 5:19 PM CDT): Orders: IRON SAT PANEL (IRON,IBC,%SAT); Future Assessment & Plan (11/15/2024 8:53 AM CDT): -possibly due to AOCD -will try to add anemia panel in lab Rheumatoid arthritis involvi ng multiple sites with positive rheumatoid factor ([facility]) 11/14/2024 Assessment & Plan (01/09/2025 5:19 PM CDT): -pt was seen by machine puller and laster and rxed with steroid /pt was referred to see inspector advanced composite for hep B per pt before starting MTX -pt to f/u with machine puller and laster Assessment & Plan (11/15/2024 12:57 PM CDT): -will refer to rhematologist sean -rx with prednisone for flare up -check xray neck as well for neck pain with h/o RA Alopecia areata 11/08/2024 Assessment & Plan (11/08/2024 11:25 AM CDT): -Labs ordered to rule out autoimmune disease -Consider dermatology referral in future Other hyperlipidemia 11/08/2024 Assessment & Plan (01/09/2025 5:19 PM CDT): -With multiple risk factors and elevated cardiac C-reactive protein, started patient on statin - pt declined to take rosuvastatin or atorvastatin. -requesting to try pravastatin -discussed about moderate high intensity statin is beneficial for this pt - pt declined it -Discussed benefits and risk of statin -pt is on pravastatin per pt's preference of choice Orders: LIPID PANEL; Future Assessment & Plan (11/15/2024 12:59 PM CDT): -With multiple risk factors and elevated cardiac C-reactive protein, start patient on statin - pt declined to take rosuvastatin or atorvastatin. -requesting to try pravastatin -discussed about moderate high intensity statin is beneficial for this pt - pt declined it -Discussed benefits and risk of statin Assessment & Plan (11/08/2024 11:27 AM CDT): -With multiple risk factors and elevated cardiac C-reactive protein, start patient on rosuvastatin 10 mg daily -Discussed benefits and risk of statin Type 2 diabetes mellitus wit hout complication, without long-term current use of insulin ([facility]) 11/08/2024 Assessment & Plan (01/09/2025 5:19 PM CDT): -A1c of 6.8 -Newly diagnosed diabetes-discussed about diabetic diet -Patient is noncompliant with med- metformin ER 500 mg once daily Pt said she is watching diet and does not like to take med Orders: COMPREHENSIVE METABOLIC PANEL; Future ALBUMIN URINE RANDOM W/CREATININE; Future HEMOGLOBIN, GLYCOSYLATED; Future Assessment & Plan (11/15/2024 12:57 PM CDT): -A1c of 6.8 -Newly diagnosed diabetes-discussed about diabetic diet -Patient to start metformin ER 500 mg once daily -Consider dietitian referral in future Assessment & Plan (11/08/2024 11:23 AM CDT): -A1c of 6.8 -Newly diagnosed diabetes-discussed about diabetic diet -Patient is willing to start metformin ER 500 mg once daily -Consider dietitian referral in future Multiple joint pain 11/08/2024 Assessment & Plan (11/08/2024 11:24 AM CDT): With family history of rheumatoid arthritis -Will check labs to rule out inflammatory arthritis Reactive depression (situational) 11/08/2024 Neck fullness 11/08/2024 Assessment & Plan (11/08/2024 11:25 AM CDT): With history of perio dental disease -Patient has neck fullness point tenderness on the left side of neck-Will check ultrasound of neck to rule out soft tissue lesion Invasive ductal carcinoma of right breast (CMS/H CC [facility]) 03/25/2019 Assessment & Plan (01/09/2025 5:19 PM CDT): -pt stopped seeing onco - pt is reluctant to go for mmg-ordered mmg Assessment & Plan (11/08/2024 11:26 AM CDT): -S/p lumpectomy -Will do referral in future-patient is overwhelmed with current health issues/will wait for mammogram and referral for now Resolved Problems Problem Noted Date Diagnosed Date Resolved Date Encounter for screening mamm ogram for malignant neoplasm of breast 01/09/2025 01/16/2025 Encounters Date Type Department Care Team Description 02/01/2025 Telephone [facility] Family & Internal [address] [phone] Clarita Grissom MD Information 01/10/2025 Results Follow-Up [facility] Internal [address] [phone] Clarita Grissom MD IRON SAT PANEL (IRON,IBC,%SAT), HEMOGLOBIN, GLYCOSYLATED, ALBUMIN URINE RANDOM W/CREATININE, Additional followed-up results: 2 01/09/2025 12:47 PM CDT - 01/09/2025 11:59 PM CDT Hospital Encounter [facility] [address] [place] [address] Clarita Grissom MD Discharge Disposition: Home or Self Care (Routine Discharge) 01/09/2025 10:10 AM CDT Laboratory Only [facility] [address] [address] Clarita Grissom MD 01/09/2025 9:00 AM CDT Office Visit [facility] [address] [phone] Clarita Grissom MD Follow Up (3 wk f/u) 01/09/2025 Travel from Last 3 Months Family History Medical History Relation Comments Hypertension Mother Arthritis Sister Relation Status Comments Mother Sister Social History Tobacco Use Types Packs/Day Years Used Date Smoking Tobacco: Every Day Cigarettes Smokeless Tobacco: Never Tobacco Cessation:Ready to Q uit: Yes; Counseling Given: Yes Alcohol Use Standard Drinks/Week Comments Never 0 (1 standard drink = 0.6 oz pur e alcohol) PHQ-2 Answer Date Recorded Patient Health Questionnaire-2 Score 3 11/08/2024 Comments No Sex and Gender Information Value Date Recorded Sex Assigned at Female 11/08/2024 11:25 AM CDT Legal Sex Female 7:19 PM CDT Gender Identity Not on file Sexual Orientation Not on file Last Filed Vital Signs Vital Sign Reading Time Taken Comments Blood Pressure 136/86 01/09/2025 9:58 AM CDT Pulse 89 01/09/2025 8:46 AM CDT Temperature 36.7 C (98 F) 01/09/2025 8:46 AM CDT Respiratory Rate 24 01/09/2025 8:46 AM CDT Oxygen Saturation 97% 01/09/2025 8:46 AM CDT Inhaled Oxygen Concentration - - Weight 78.3 kg (172 lb 9.6 oz) 01/09/2025 8:46 A M CDT Height 160 cm (5' 3) 01/09/2025 8:46 AM CDT Body Mass Index 30.57 01/09/2025 8:46 AM CDT Plan of Treatment Upcoming Encounters Date Type Department Care Team (Late st Contact Info) Description 03/20/2025 9:20 AM CDT Office Visit [facility] Family & Internal Medicine [address] [phone] [place] [id number] [place] [address] [place] [id number] Health Maintenance Due Date Last Done Comments Colorectal Cancer Screening Colonoscopy (10 Years) 1970 Annual Physical 1973 Diabetes: Retinopathy Eye Exam 1988 Hepatitis C 1988 DTaP, Tdap and Td Vaccines ( 1 - Tdap) 1989 Hepatitis B Vaccines (1 of 3 - 19+ 3-dose series) 1989 Pneumococcal Vaccine: 50+ Years (1 of 2 - PCV) 1989 Cervical Cancer Screening Pa p with HPV Testing (Age 30 to 64) Every 5 Years 2000 Zoster Vaccines (1 of 2) 2020 Mammogram Screening 01/12/2022 01/13/2020 Cervical Cancer Screening Pa p Smear (Age 30 to 64) Every 3 Years 01/09/2023 01/10/2020 Cervical Cancer Screening wi th HPV 01/09/2023 COVID-19 Vaccine (2023-2 5 season) 2024 Hemoglobin A1C 07/11/2025 01/09/2025, 10/26/2024 Kidney Health Evaluation 01/09/2026 01/09/2025 Lipid Panel 01/09/2026 01/09/2025 PHQ-2 (Physician [place]) Completed 11/08/2024 Meningococcal B Vaccine Aged Out No l onger eligible based on patient's age to complete this topic Meningococcal Vaccine Aged Out No avel tamar eligible based on patient's age to complete this topic RSV Immunizations Under 20 Months Aged Out No longer eligible b ased on patient's age to complete this topic Procedures Procedure Name Priority Date/Time Associated Diagnosis Comments COLLECTION VENOUS BLOOD VENIPUNCTURE Routine 01/09/2025 10:36 AM CDT Type 2 diabetes mellitus without complication, without long-term current use of insulin ([facility]) Other hyperlipidemia Anemia in other chronic diseases classified elsewhere COMPREHENSIVE METABOLIC PANEL Routine 01/09/2025 10:09 AM CDT Type 2 diabetes mellitus without complication, without long-term current use of insulin ([facility]) LIPID PANEL Routine 01/09/2025 10:09 AM CDT Other hyperlipidemia ALBUMIN URINE RANDOM W/CREATININE Routine 01/09/2025 10:09 AM CDT Type 2 diabetes mellitus without complication, without long-term current use of insulin ([facility]) HEMOGLOBIN, GLYCOSYLATED Routine 01/09/2025 10:09 AM CDT Type 2 diabetes mellitus without complication, without long-term current use of insulin ([facility]) IRON SAT PANEL (IRON,IBC,%SAT) Routine 01/09/2025 10:09 AM CDT Anemia in other chronic diseases classified elsewhere from Last 3 Months Results * (ABNORMAL) HEMOGLOBIN, GLYCOSYLATED (01/09/2025 10:09 AM CDT) HGB A1C 6.3(H) <5.7 % 01/09/2025 1:35 PM CDT [facility] Comment: INCREASED RISK OF DIABETES <5.7% NON-DIABETES 5.7-6.4% INCREASED RISK FOR FUTURE DIABETES > OR = 6.5 CONSISTENT WITH DIABETES STANDARDS OF MEDICAL CARE IN DIABETES-2010 DIABETES CARE, 33(SUPP 1): S1-S61,2010 ESTIMATED AVG GLUCOSE 134 mg/dL 01/09/2025 1:35 PM CDT [facility] 01/09/2025 10:0 9 AM CDT Clarita Grissom MD LABORATORY Final Result Performing Organization Address [facility]/ZIP Co de Phone Number [facility] [address] [place] [address], [place] [phone] * (ABNORMAL) IRON SAT PANEL (IRON,IBC,%SAT) (01/09/2025 10:09 AM CDT) IRON 44(L) 50 - 170 MCG/DL 01/09/2025 2:03 PM CDT [facility] IRON BINDING CAPACITY 390 250 - 450 MCG/DL 01/09/2025 2:03 PM CDT [facility] IRON SATURATION 11(L) 20 - 55 % 2:03 PM CDT [facility] 01/09/2025 10:0 9 AM CDT us Clarita Grissom MD LABORATORY Final Result [facility] [address] [place] [address], [place] [phone] * ALBUMIN URINE RANDOM W/CREATININE (01/09/2025 10:09 AM CDT) CREATININE (U) 40.0 28 - 217 MG/DL 01/09/2025 2:31 PM CDT [facility] MICROALBUMIN (U) 0.6 <2.0 mg/dL 01/10/20 2:31 PM CDT [facility] ALBUMIN/CREAT RATIO 15.0 <30.0 MG/G 01/09/2025 2:31 PM T [facility] URINE SPECIMEN / Unknown 01/09/2025 10:09 AM CDT Clarita Grissom MD URINE ORDERABLES Final Result [facility] [address] [place] [address], [place] [phone] * (ABNORMAL) COMPREHENSIVE METABOLIC PANEL (01/09/2025 10:09 AM CDT) GLUCOSE 87 70 - 99 MG/DL 01/09/2025 1:22 PM T [facility] BUN 13 7 - 18 MG/DL 01/09/2025 1:22 PM T [facility] CREATININE S/P/B 0.78 0.55 - 1.02 MG/DL 01/09/2025 1:22 PM T [facility] SODIUM S/P/B 143 136 - 145 MMOL/L 01/09/2025 1:22 PM T [facility] POTASSIUM S/P/B 4.7 3.5 - 5.1 MMOL/L 01/09/2025 1:22 PM T [facility] CHLORIDE S/P/B 103 100 - 108 MMOL/L 01/09/2025 1:22 PM T [facility] CO2 28.9 21 - 32 MMOL/L 01/09/2025 1:22 PM [facility] CALCIUM S/P/B 9.9 8.5 - 10.1 MG/DL 01/09/2025 1:22 PM [facility] BILIRUBIN TOTAL S/P/B 0.4 0.2 - 1.2 MG/DL 01/09/2025 1:22 PM [facility] TOTAL PROTEIN S/P/B 7.4 6.4 - 8.2 G/DL 01/09/2025 1:22 PM [facility] ALBUMIN S/P/B 3.5 3.4 - 5.0 G/DL 01/09/2025 1:22 PM [facility] AST 47(H) 15 - 37 U/L 01/09/2025 1:22 PM [facility] ALT 34 14 - 55 U/L 01/09/2025 1:22 PM [facility] ALKALINE PHOSPHATASE S/P/B 120 50 - 136 U/L 01/09/2025 1:22 PM [facility] ANION GAP 11.1 5 - 15 MMOL/L 01/09/2025 1:22 PM [facility] BUN CREATININE RATIO 16.7 6 - 26 01/09/2025 1:22 PM [facility] A/G RATIO 0.9(L) 1.0 - 2.0 RATIO 01/09/2025 1:22 PM [facility] GFR ESTIMATE >90 >90 ML/MIN/1.7 3 M2 01/09/2025 1:22 PM [facility] Comment: NOTE: eGFR is not calculated for patients <18 years of age. This is an estimated GFR calculation using the new CKD EPI creatinine equation without race and so does not require a correction factor for race. This estimated GFR should not be used for calculating drug doses. 01/09/2025 10:0 9 AM CDT us Clarita Grissom MD LABORATORY Final Result [facility] [address] [place] [address], [place] [phone] * (ABNORMAL) LIPID PANEL (01/09/2025 10:09 AM CDT) Pathologist [facility] CHOLESTEROL 233(H) <200.0 MG/DL 01/09/2025 1:22 PM CDT [facility] TRIGLYCERIDES 170(H) <150 MG/DL 01/09/2025 1:22 PM CDT [facility] HDL 52 >40.0 MG/DL 01/09/2025 1:22 PM T [facility] LDL (CALCULATED) 147(H) <100 MG/DL 01/09/2025 1:22 PM CDT [facility] NON HDL CHOLESTEROL 181(H) <130 MG/DL 01/09/2025 1:22 PM T [facility] CHOL/HDL RATIO 4.5 0.0 - 4.5 01/09/2025 1:22 PM T [facility] VLDL CALCULATION 34 5 - 55 MG/DL 01/09/2025 1:22 PM T [facility] LIPID INTERPRETATION 01/09/2025 1:22 PM T [facility] Comment: [facility] CONCENSUS REPORT RECOMMENDATIONS: ADULT CHILD LOW RISK: CHOLESTEROL <200 <170 TRIGLYCERIDE <150 --- HDL >=60 --- LDL <100 <110 BORDERLINE: CHOLESTEROL 200-239 170-199 TRIGLYCERIDE 150-199 --- HDL 40-59 --- LDL 100-159 110-129 HIGH RISK: CHOLESTEROL >=240 >=200 TRIGLYCERIDE >=200 --- HDL <40 --- LDL >=160 >=130 01/09/2025 10:0 9 AM CDT Clarita Grissom MD LABORATORY Final Result [facility] [address] [place] [address], from Last 3 Months Insurance Care Teams Senior Security Architect Relationship Specialty [place] [address] [address] [facility] [address] [place] [address] PCP - General INTERNAL MEDICINE 11/10/24
--- OUTSIDE RECORDS SUMMARY | 2025-02-21 15:50 | XMS_ITS | Clinical Summary ---
Author Organization [facility] Care Team Providers Care Rehab Trainer Name Role Phone Unavailable Primary Care Provider Unavailabl e Social History Tobacco Use Types Packs/Day Years Used Date Smoking Tobacco: Never Assessed Comments Unknown Sex and Gender Information Value Date Recorded Sex Assigned at Not on file Legal Sex Female 8:51 AM MFTS Gender Identity Not on file Sexual Orientation Not on file Plan of Treatment Health Maintenance Due Date Last Done Comments Hepatitis C Virus (HCV) Screening 1970 TdaP Immunization 1970 Hepatitis B Immunization (1 of 3 - 19+ 3-dose series) 1989 Pap Smear 1991 Cervical Cancer Screening (CCS) 2000 HPV/Cotest 2000 Colonoscopy 2015 Colorectal Cancer Screening 2015 Cologuard 2020 Immunochemical Fecal Occult Blood 2020 Mammogram 2020 Pneumococcal Immunization (5 0+ years) (1 of 1 - PCV) 2020 Zoster Immunization (1 of 2) 2020 Influenza Immunization (#1) 2024 SARS-COV-2 Immunization (2023- season) 2024 Respiratory Syncytial Virus (RSV) Immunization (Adult) (1 - 1-dose 75+ series) 2045 Meningococcal Immunization (ACWY) Aged Out No longer eligible based on patient's age to complete this topic Pneumococcal Immunization Combined Aged Out No longer eligible based on patient's age to complete this topic Rotavirus Immunization Aged Out No lo nger eligible based on patient's age to complete this topic
--- OUTSIDE RECORDS SUMMARY | 2025-02-21 15:50 | XMS_ITS | Clinical Summary ---
Author Organization [facility] Address [address] [place] [address] Care Team Providers Care Pony Trimmer Name Role Phone Lainey Maria Primary Care Provider [phone] Allergies Active Allergy Reactions Criticality Noted Date Comments Iodinated Contrast Media Hives High 04/13/2019 Medications ergocalciferol, vitamin D2, (VITAMIN D ORAL) Take by mouth. Activ e anastrozole (Arimidex) 1 mg tablet Take 1 Tablet (1 mg) by mouth daily. 90 Tablet 1 5 Active palbociclib (Ibrance) 125 mg tablet Take 1 Tablet (125 mg) by mouth daily with breakfast for 3 weeks on, 1 week off. Repeat every 28 days. 21 Tablet 4 5 Active Active Problems Problem Noted Date Diagnosed Date Encounter for smoking cessation counseling 10/18 Acute mastitis 09/30/2020 Abnormal magnetic resonance imaging of right jordyn ast 04/04/2019 Tobacco dependence 03/29/2019 Overview (03/29/2019): 1/2 PPD Invasive ductal carcinoma of right breast 2018 Cancer Staging:Clinical:Stage IB(cT2, cN0(sn), cM0, G2, ER+, KS+, HER2-) - Signed by Melly Arenas MD on 04/21/2019 Abnormality of right breast on screening mammogr am 03/22/2019 Elevated WBCs Encounters Date Type Department Care Team Description 02/21/2025 4:00 PM CDT Office Visit [facility] Oncology and Hematology - [place] [address] [place] [address] Miguel Angel Salmon MD Chronic anemia (Primary Dx) from Last 3 Months Family History Medical History Relation Name Comments Liver Disease Father Heart Disease Maternal Grandmother No Known Problems Mother Breast Cancer Paternal Grandmother Cancer Paternal Grandmother No Known Problems Sister Relation Name Status Comments Father Maternal Grandmother Mother Alive Paternal Grandmother Sister Alive Social History Tobacco Use Types Packs/Day Years Used Date Smoking Tobacco: Former Cigarettes 1 30 Q uit: 02/07/2025 Smokeless Tobacco: Never Comments:is ready to quit in September Alcohol Use Standard Drinks/Week Comments Never 0 (1 standard drink = 0.6 oz pur e alcohol) Comments No Sex and Gender Information Value Date Recorded Sex Assigned at Not on file Legal Sex Female 2:57 PM CDT Gender Identity Not on file Sexual Orientation Not on file Last Filed Vital Signs Vital Sign Reading Time Taken Comments Blood Pressure 111/73 02/21/2025 3:05 PM CDT Pulse 88 02/21/2025 3:05 PM CDT Temperature 37.1 C (98.7 F) 02/21/2025 3:05 PM CDT Respiratory Rate 16 02/21/2025 3:05 PM CDT Oxygen Saturation 92% 02/21/2025 3:05 PM CDT Inhaled Oxygen Concentration - - Weight 74.4 kg (164 lb) 02/21/2025 3:05 PM CDT Height 160 cm (5' 3) 02/21/2025 3:05 PM CDT Body Mass Index 29.05 02/21/2025 3:05 PM CDT Plan of Treatment Upcoming Encounters Date Type Department Care Team (Late st Contact Info) Description 02/21/2025 4:00 PM CDT Office Visit [facility] Oncology and Hematology - [place] [address] [place] [address] Miguel Angel Salmon MD [address] [facility] [address] [place] [address] Chronic anemia (Primary Dx) 03/20/2025 2:00 PM CDT Office Visit [facility] Oncology and Hematology - [place] [address] [place] [address] Miguel Angel Salmon MD [address] [facility] [employer] [address] [place] [address] Health Maintenance Due Date Last Done Comments DIABETES ANNUAL FOOT EXAM 1988 DIABETES ANNUAL RETINAL EXAM 1988 DIABETES MICROALBUMIN ANNUAL SCREEN 1988 LDL CHOLESTEROL ANNUAL 1988 DTAP/TDAP/TD VACCINES (1 - Tdap) 1989 HEPATITIS B VACCINES (1 of 3 - 19+ 3-dose series) 1989 COLORECTAL SCREENING 2015 Colorectal Cancer Screening 2015 FIT-DNA Q 3 years 2015 FIT/FOBT Q 1 year 2015 Flex Sig/CT Colonography Q 5 years 2015 ZOSTER VACCINE (1 of 2) 2020 BREAST CANCER SCREENING 01/12/2021 01/13/20 20, 03/16/2019, 02/20/2012 PAP SMEAR 01/09/2023 01/10/2020 Preventative Visit- Commercial 08/10/2024 01/10/2020 CERVICAL CANCER SCREENING 01/09/2025 HPV/Cotest (21-29) 01/09/2025 01/10/2020 HPV/Cotest (30-65) 01/09/2025 01/10/2020 INFLUENZA VACCINE (#1) 2025 DIABETES HBA1C Q 6 MONTHS 07/11/2025 01/09/2025 Medical Devices Implanted Type Area Market Risk Specialist Device Identifier Shelf Expiration Date Model / Serial / Lot Hemostatic Surgicel 2x14in 1950 - [id number] Implanted:Qty: 1 on 04/13/2019 by Melly Arenas MD at [facility] [place] Hemostatic Right: Breast [employer] 12/08/20191950 / / [id number] Procedures Procedure Name Priority Date/Time Associated Diagnosis Comments MAMMO 3D CECY DIAGNOSTIC BILAT W OR WO CAD Routine 01/13/2020 11:12 AM CDT Abnormality of right breast on screening mammogram Invasive ductal carcinoma of right breast (CMS/HCC) Abnormal magnetic resonance imaging of right breast CERV/VAG CYTO AGE BASED SCREEN PAP Routine 01/10/2020 11:38 AM CDT Screening for cervical cancer from Last 3 Months or Most Recently Relevant to Health Maintenance Results * MAMMO DIAG BILAT 3D CECY W OR WO CAD (01/13/2020 11:12 AM CDT) Anatomical Region Laterality Modality Breast Bilateral Mammography 01/13/2020 11:1 2 AM CDT Impressions 01/13/2020 1:23 PM CDT IMPRESSION: No suspicious findings to suggest malignancy in either breast. Annual mammography is recommended. OVERALL FINAL ASSESSMENT: BI-RADS CATEGORY 2: Benign findings Narrative 01/13/2020 1:23 PM CDT EXAM: BILATERAL DIAGNOSTIC DIGITAL MAMMOGRAM WITH 3D TOMOSYNTHESIS AND CAD DATE: 01/13/2020 11:12 AM HISTORY: Personal history of breast cancer with prior right breast conservation therapy. DICTATION LOCATION: [facility] TECHNIQUE: Mediolateral oblique, mediolateral and craniocaudal views of both breasts were performed using full-field digital mammography. Low-dose digital breast tomosynthesis examination was performed with 2D and 3D acquisitions. Examination is read in conjunction with computer aided detection. COMPARISON: 03/16/2019 and older. BREAST COMPOSITION: Scattered fibroglandular densities. FINDINGS: Mammographic changes consistent with breast conservation therapy are seen on the right. No concerning mass, suspicious microcalcifications, or concerning areas of architectural distortion are identified in either breast. Computer aided detection was utilized. Procedure Note Disha Sauceda MD - 01/13/2020 EXAM: BILATERAL DIAGNOSTIC DIGITAL MAMMOGRAM WITH 3D TOMOSYNTHESIS AND CAD DATE: 01/13/2020 11:12 AM HISTORY: Personal history of breast cancer with prior right breast conservation therapy. DICTATION LOCATION: [facility] TECHNIQUE: Mediolateral oblique, mediolateral and craniocaudal views of both breasts were performed using full-field digital mammography. Low-dose digital breast tomosynthesis examination was performed with 2D and 3D acquisitions. Examination is read in conjunction with computer aided detection. COMPARISON: 03/16/2019 and older. BREAST COMPOSITION: Scattered fibroglandular densities. FINDINGS: Mammographic changes consistent with breast conservation therapy are seen on the right. No concerning mass, suspicious microcalcifications, or concerning areas of architectural distortion are identified in either breast. Computer aided detection was utilized. IMPRESSION: No suspicious findings to suggest malignancy in either breast. Annual mammography is recommended. OVERALL FINAL ASSESSMENT: BI-RADS CATEGORY 2: Benign findings Melly Arenas MD MAMMO ORDERABLES Final R esult * CERV/VAG CYTO AGE BASED SCREEN PAP (01/10/2020 11:38 AM CDT) COMMENT (PAP): SEE COMMENT 0 12:55 PM CDT [facility] Comment: This order for age-based cervical cancer and STI screening follows ACOG guidelines(PB 168, 140, RTE379). See individual assays for performing site location. CLINICAL INFORMATION Information not provided 01/13/2020 12:55 PM CDT [facility] LAST MENSTRUAL PERIOD Information not provided 01/13/2020 12:55 PM CDT [facility] PREV PAP: Information not provided 01/13/2020 12:55 PM CDT [facility] PREV BX: Information not provided 01/13/2020 12:55 PM CDT [facility] SOURCE Endocervix 01/13/2020 12:55 PM CDT [facility] ADEQUACY: SEE COMMENT 01/13/2020 12:55 PM CDT [facility] Comment: Satisfactory for evaluation. Endocervical/transformation zone component present. Age and/or menstrual status not provided PAP INTERP Negative for intraepithelial lesion or malignancy. 01/13/2020 12:55 PM CDT [facility] COMMENT This Pap test has been evaluated with computer assisted technology. 01/13/2020 12:55 PM CDT [facility] BUILDING REPAIR MAINTENANCE SUPERVISOR: SEE COMMENT 2019 12:55 PM CDT [facility] Comment: BLG, CT(ASCP) CT screening location: [place] [address] [place] [address] EXPLANATORY NOTE SEE COMMENT 020 12:55 PM CDT [facility] Comment: EXPLANATORY NOTE: The Pap is a screening test for cervical cancer. It is not a diagnostic test and is subject to false negative and false positive results. It is most reliable when a satisfactory sample, regularly obtained, is submitted with relevant clinical findings and history, and when the Pap result is evaluated along with historic and current clinical information. HPV E6/E7 Not Detected Not Detected 01/13/2020 12:55 PM CDT [facility] Comment: This test was performed using the APTIMA HPV Assay ([employer] This assay detects E6/E7 viral messenger RNA (mRNA) from 14 high-risk HPV types (16,18,31,33,35,39,45,51,52,56,58,59,66,68). The analytical performance characteristics of this assay have been determined by [facility]. The modifications have not been cleared or approved by the FDA. This assay has been validated pursuant to the CLIA regulations and is used for clinical purposes. Genital SWAB OF ENDOCERVIX / Unknown Collection / Unknown 01/10/2020 11:38 AM CDT 01/10/2020 6:22 PM CDT Narrative [facility] - 01/13/2020 12:55 PM CDT Performing Organization Information: Site ID: [id number] Name: [facility] Address: [address] [place] [address] Director: Jian Park D.O., MPH Site ID: [id number] Name: [facility] Address: [address] [place] [address] Director: Usha Garza Nickie Alegre MD PATHOLOGY/CYTOLOGY ORD ERABLES Final Result [facility] [phone] from Last 3 Months or Most Recently Relevant to Health Maintenance Insurance BCBS BLUE ACCESS/TRUE BLUE PPO RX [employer] Commercial [employer] BLUE ACCESS/TRUE BLUE PPO Care Teams Pony Trimmer Relationship Specialty Start Date End Date Lainey Maria PA PCP - General Physician Wax Specialist 03/22/19
--- OUTSIDE RECORDS SUMMARY | 2025-02-21 15:50 | XMS_ITS | Encounter Summary ---
Author Organization [facility] Address [address] [place] [address] Care Team Providers Care Process Cheese Cooker Name Role Phone Lainey Maria Primary Care Provider [phone] Encounter Details Date Type Department Care Team (Late Contact Info) Description 05/05/2019 Chart Note [facility] Radiation Therapy [address] [place] [address] [place] [address] [place] [address] Social History Tobacco Use Types Packs/Day Years Used Date Smoking Tobacco: Every Day Cigarettes 1 30 Smokeless Tobacco: Never Alcohol Use Standard Drinks/Week Comments Yes 0 (1 standard drink = 0.6 oz pur e alcohol) Comments No Sex and Gender Information Value Date Recorded Sex Assigned at Not on file Legal Sex Female 2:57 PM CDT Gender Identity Not on file Sexual Orientation Not on file documented as of this encounter Plan of Treatment Upcoming Encounters Date Type Department Care Team (Late Contact Info) Description 02/21/2025 4:00 PM CDT Office Visit [facility] Oncology and Hematology - [place] [address] [facility] [address] [place] [address] Miguel Angel Samlon MD [address] [facility] [address] [place] [address] Chronic anemia (Primary Dx) 03/20/2025 2:00 PM CDT Office Visit [facility] Oncology and Hematology - [place] [address] [facility] [address] [place] [address] Miguel Angel Salmon MD [address] [facility] [address] [place] [address] documented as of this encounter Visit Diagnoses Not on filedocumented in this encounter Care Teams Process Cheese Cooker Relationship Specialty Start Date End Date Lainey Maria PA PCP - General Physician Junior Accountant Bookkeeper 03/22/19 documented as of this encounter
--- OUTSIDE RECORDS SUMMARY | 2025-02-21 15:50 | XMS_ITS | Clinical Summary ---
Author Organization [facility] Address [facility] [place] [address] Care Team Providers Care Machine Sewer Name Role Phone Clarita Grissom MD Primary Care Provider [phone] Allergies Active Allergy Reactions Criticality Noted Date Comments Iodinated Contrast Media Hives High 04/13/2019 Medications omega-3 fatty acids 1,000 mg capsule Take 1,000 mg by mouth 2 (two) times a day Active ergocalciferol (DRISDOL) 8,000 unit/mL drops Take by mouth Active vitamin B complex capsule Take 1 capsule by mouth daily Active iron aspgly,ps-C-B12 -FA-Ca-suc 150-60-25-1 uv-hv-ceq-mg capsule Take by mouth Active turmeric root extract 500 mg capsule Take by mouth Active Active Problems Problem Noted Date Diagnosed Date Elevated liver function tests 01/30/2025 Assessment & Plan (01/30/2025 2:29 PM CDT): Lucila Kingston presents for evaluation of elevated liver tests. Most recent lab work 01/09/2025 reveals ALT 34, AST 47. Patient rarely drinks alcohol.I will rule out other etiologies of elevated liver tests including autoimmune, genetic, iron overload and viral. I will obtain Fibroscan to evaluate degree of hepatic steatosis and fibrosis. I will order right upper quadrant ultrasound for further evaluation of the liver.I have commended patient on her weight loss success. Avoid alcohol and supplements. Limit Tylenol to < 2,000 mg/day. Patient has Hepatitis B surface antibody positive meaning immunity to viral Hepatitis B. She has Hepatitis B core + meaning previous, resolved infection. She has HbsAg negative indicating no active virus. We have discussed that there are certain instances when patient is immunosuppressed with high dose steroids, biologics or chemotherapy that can lead to re-activation of virus and therefore, antiviral prophylaxis is recommended during treatment. 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 I will refer to AGA guidelines. Further recommendations pending results. Follow up in 1 year. Encounter for colorectal cancer screening 2024 Assessment & Plan (01/30/2025 2:20 PM CDT): Patient deferred colonoscopy. Encounters Date Type Department Care Team Description 02/02/2025 Telephone [facility] Gastroenterology [address] [facility] 2nd Floor [address] [place] [address] Kirsten Noriega NP 02/01/2025 Telephone [facility] Gasteroenterology [address] [facility] 12th [place] [address] [place] [address] Kirsten Noriega NP 01/30/2025 2:08 PM CDT - 01/30/2025 11:59 PM CDT Hospital Encounter [facility] Imaging [address] [place] [address] Elevated liver function tests Discharge Disposition: Discharge to home or self care 01/30/2025 1:55 PM CDT Lab [facility] [address] [place] [address] Elevated liver function tests 01/30/2025 1:30 PM CDT Procedure visit [facility] Gastroenterology [address] [place] [address] Medical Office Building [address], [address] [place] [phone] Elevated liver function tests 01/30/2025 1:00 PM CDT Office Visit [facility] Gastroenterology [address] [place] [address] Medical Office Building [address], [address] [place] [phone] Kirsten Noriega NP Elevated liver function tests (Primary Dx); Encounter for colorectal cancer screening 01/30/2025 Results Follow-Up [facility] Gastroenterology [address] [place] [address] Medical Office Building [address], [address] [place] [address] Kirsten Noriega, JEREMIAS Liver Elastography w/o Imaging W/I&R -[facility] (All Locations), RUQ Ultrasound, Protime-INR, Additional followed-up results: 20 from Last 3 Months Surgical History Surgery Date Site/Laterality Comments BREAST BIOPSY 03/22/2019 Right Social History Tobacco Use Types Packs/Day Years Used Date Smoking Tobacco: Never Tobacco Cessation:Counseling Given: Not Answered AUDIT-C Answer Date Recorded Q1: How often do you have a drink containing alc ohol? Monthly or less 01/30/2025 Average Number of Drinks Not on file 025 Frequency of Binge Drinking Not on file 01/09 Comments Unknown Sex and Gender Information Value Date Recorded Sex Assigned at Not on file Legal Sex Female 10:08 AM CDT Gender Identity Not on file Sexual Orientation Not on file Obstetrics History Last Filed Vital Signs Vital Sign Reading Time Taken Comments Blood Pressure 143/84 01/30/2025 12:43 PM CDT Pulse 91 01/30/2025 12:43 PM CDT Temperature - - Respiratory Rate - - Oxygen Saturation 95% 01/30/2025 12:43 PM CDT Inhaled Oxygen Concentration - - Weight 78 kg (172 lb) 01/30/2025 12:43 PM CDT Height 157.9 cm (5' 2.17) 01/30/2025 12:43 PM C DT Body Mass Index 31.29 01/30/2025 12:43 PM CDT Plan of Treatment Health Maintenance Due Date Last Done Comments Breast Cancer Screening-Mammogram 1970 Cervical Cancer Screening 1970 Colon Cancer Screening-Colonoscopy 1970 Depression Screening 1970 DTaP/Tdap/Td Vaccine (1 - Tdap) 1981 Regular Well Visit/Exam 18-64 1988 Zoster Vaccine (1 of 2) 2020 Influenza Vaccine (#1) 2025 Hepatitis C Screening Completed 01/30/2025 Pneumococcal vaccine <65 Aged Out No longer eligible based on patient's age to complete this topic Procedures Procedure Name Priority Date/Time Associated Diagnosis Comments MANUAL DIFFERENTIAL Routine 01/30/2025 2 :45 PM CDT Elevated liver function tests SENIOR STAFF REVIEW Routine 01/30/2025 2 :45 PM CDT Elevated liver function tests EGFR Routine 01/30/2025 2:45 PM CDT Elevated liver function tests PHOSPHATIDYLETHANOL Routine 01/30/2025 2 :45 PM CDT Elevated liver function tests EXOLA-0-BDHHDUKHUSY Routine 01/30/2025 2 :45 PM CDT Elevated liver function tests CBC WITH AUTO DIFFERENTIAL Routine 01/30/2025 2:45 PM CDT Elevated liver function tests CERULOPLASMIN Routine 01/30/2025 2:45 PM CDT Elevated liver function tests COMPREHENSIVE METABOLIC PANEL Routine 01/30/2025 2:45 PM CDT Elevated liver function tests FERRITIN Routine 01/30/2025 2:45 PM CDT Elevated liver function tests GAMMA GT Routine 01/30/2025 2:45 PM CDT Elevated liver function tests IGG Routine 01/30/2025 2:45 PM CDT Elevated liver function tests IRON PROFILE W/ IBC Routine 01/30/2025 2 :45 PM CDT Elevated liver function tests MITOCHONDRIAL ANTIBODIES, QUALITATIVE Routine 01/30/2025 2:45 PM CDT Elevated liver function tests SMOOTH MUSCLE ANTIBODY, QUALITATIVE Routine 01/30/2025 2:45 PM CDT Elevated liver function tests HEPATITIS A ANTIBODY, IGM Routine 2024 2:45 PM CDT Elevated liver function tests HEPATITIS A ANTIBODY, TOTAL Routine 01/30/2025 2:45 PM CDT Elevated liver function tests HEPATITIS B CORE ANTIBODY, TOTAL Routine 01/30/2025 2:45 PM CDT Elevated liver function tests HEPATITIS B SURFACE ANTIBODY (IMMUNE STATUS) Routine 01/30/2025 2:45 PM CDT Elevated liver function tests HEPATITIS B SURFACE ANTIGEN Routine 01/30/2025 2:45 PM CDT Elevated liver function tests HEPATITIS C ANTIBODY Routine 01/30/2025 2:45 PM CDT Elevated liver function tests MEDHAT QUALITATIVE WITH REFLEX TO MEDHAT QUANTITATIVE Routine 01/30/2025 2:37 PM CDT Elevated liver function tests PROTIME-INR Routine 01/30/2025 2:37 PM CDT Elevated liver function tests US RUQ Schedule ANNIE, Read ANNIE (Appt Today, Awaiting Results) 01/30/2025 2:32 PM CDT Elevated liver function tests LIVER ELASTOGRAPHY W/O IMAGING W/I&R Routine 01/30/2025 1:48 PM CDT Elevated liver function tests from Last 3 Months Results * Phosphatidylethanol (01/30/2025 2:45 PM CDT) PHOSPHATIDYLETHANOL Negative . [facility] Comment: ADDITIONAL INFORMATION This report is intended for use in clinical monitoring and management of patients. It is not intended for use in employment-related testing. This test was developed and its performance characteristics determined by [facility] in a manner consistent with CLIA requirements. This test has not been cleared or approved by the U.S. Food and Drug Administration. Test Performed by: [facility] [id number] [place] [address] Company Doctor: Miryam Cornell Ph.D.; CLIA# [id number] PEth 16:0/18:1 (POPEth)by LC-MS/MS <10 Cutoff: 10 ng/mL MARV SUBRAMANIAN Comment: Phosphatidylethanol (PEth) homologues result interpretation PEth 16:0/18:1 (POPEth) Less than 10 ng/mL: Not detected 10 - 19 ng/mL: Abstinence or light alcohol consumption (<2 drinks per day for several days a week) 20 - 200 ng/mL: Moderate alcohol consumption (up to 4 drinks per day for several days a week) Greater than 200 ng/mL: Heavy alcohol consumption or chronic alcohol use (at least 4 drinks per day several days a week) (Reference: Devon Goode and Idalia Hampton 2018 J. Forensic Sci) Phosphatidylethanol 16:0/18:2 (PLPEth) by LC-MS/MS <10 Cutoff: 10 ng/mL MARV SUBARMANIAN Comment: PEth 16:0/18:2 (PLPEth) Reference ranges are not well established Blood 01/30/2025 2:45 PM CDT 01/30/2025 3:24 PM CDT us Kirsten Noriega RABBET OPERATOR LAB BLOOD ORDERABLES Final Result MARV FLORESCH [address] [facility]. Department [place] [address] [place] ref [facility] * eGFR (01/30/2025 2:45 PM CDT) eGFR >90 >=60 mL/min/1. 73 m2 Comment: Interpretive Data Reference Interval Normal >/= 90 mL/min/1.73m2 Mildly decreased* 60 - 89 mL/min/1.73m2 Mildly to moderately decreased 45 - 59 mL/min/1.73m2 Moderately to severely decreased 30 - 44 mL/min/1.73m2 Severely decreased 15 - 29 mL/min/1.73m2 Kidney Failure < 15 mL/min/1.73m2 *Relative to young adult level Estimated glomerular filtration rate is determined by the 2020 CKD-EPI equation recommended by the National Kidney Foundation (A Unifying Approach to GFR Estimation: Recommendations of the NKF-ASK Task Force on Reassessing the Inclusion of Race in Diagnosing Kidney Disease, JASN 2020). The CKD-EPI equation should not be used for patients with unstable renal function and has not been validated in children and those over 70. Current interpretive data was last reviewed 2021. Blood 01/30/2025 2:45 PM CDT 01/30/2025 3:24 PM CDT us Kirsten Noriega JEREMIAS LAB BLOOD ORDERABLES Final Result Performing Organization Address City/[facility]/ZIP Co de Phone Number MARV [facility] [address] [place] [employer]. [facility] [place] [address] * Smooth muscle antibody, qualitative (01/30/2025 2:45 PM CDT) Anti-smooth muscle Negative Negative Comment:Testing performed by : [facility], [address] [place] [address]., [id number] Blood 01/30/2025 2:45 PM CDT 01/30/2025 6:30 PM CDT us Kirsten Gamboa Leann MCDOWELL LAB BLOOD ORDERABLES Final Result Performing Organization Address City/[facility] Co de Phone Number MARV [facility] [address] [employer]. [facility] [place] [address] * Senior staff review (01/30/2025 2:45 PM CDT) Senior Staff Review Specimen Blood Comment:Testing performed by : [facility], [address] [place] [address]., [address] Senior Staff Review Review Done MARV SUBRAMANIAN Comment: Reviewed by senior staff.01/31/2025 08:59:08 CDT by marcelo christensen ([facility]). Testing performed by: [facility], [address] [place]., [address] Blood 01/30/2025 2:45 PM CDT 01/30/2025 8:33 PM CDT us Ben Lara MD LAB BLOOD ORDERABLES Edited Re sult - Final MARV FL[facility]ESW[facility] [address] [employer]. Department [place] [address] * Mitochondrial antibodies, qualitative (01/30/2025 2:45 PM CDT) Anti-mitochond rial Negative Negative Comment:Testing performed by : [facility], [address] [place]., [address] Blood 01/30/2025 2:45 PM CDT 01/30/2025 6:30 PM CDT us Kirsten Noriega NP LAB BLOOD ORDERABLES Final Result Performing Organization Address [facility] Co de Phone Number MARV FLORESW[facility] [address] [employer]. [place] [address] * (ABNORMAL) Iron profile w/ IBC (01/30/2025 2:45 PM CDT) Pathologist [facility] Iron 20(L) 35 - 145 mcg/dL Comment:Testing performed by : [facility], [address] [place] [address]., [id number] TIBC 317 250 - 400 mcg/dL MARV SUBRAMANIAN Comment:Testing performed by : [facility], [address] [place] [address]., [address] Transferrin saturation 6(L) 20 - 50 % CERJARRED BJWTORI Comment:Testing performed by : [facility], [address] [place] [address]., [id number] Blood 01/30/2025 2:45 PM CDT 01/30/2025 6:09 PM CDT Kirsten Noriega NP LAB BLOOD ORDERABLES Final Result Performing Organization Address [facility]/ZIP Co de Phone Number [facility] B[facility] [address] [employer]. Department of [employer] [place], [place] [id number] * (ABNORMAL) CBC with auto differential (01/30/2025 2:45 PM CDT) WBC 23.31(H) 3.80 - 9.90 K/cumm Comment:WBC corrected for NR BCs. Report corrected on 01/30/2025 17:03:06 CDT by KXS: Previously reported as 23.42. Hgb 9.9(L) 11.9 - 15.5 g/dL CERNER [facility] Hct 32.1(L) 35.6 - 45.5 % [facility]NER BJWCH Plt 158 150 - 400 K/cumm CERNER B[facility] MPV 10.4 9.1 - 12.3 fL [facility]NER BJW RBC 3.19(L) 3.90 - 5.20 M/cumm [facility]NER BJWCH MCV 100.6(H) 81.3 - 96.4 fL [facility]NER WCH MCH 31.0 27.1 - 33.3 pg [facility]NER W MCHC 30.8(L) 32.3 - 35.7 g/dL [facility]NER BJWCH RDW CV 18.1(H) 11.1 - 14.9 % [facility]NER BJWCH RDW SD 65.6(H) 35.7 - 48.1 fL [facility]NER BJWCH NRBC abs 1.76(H) 0.00 - 0.01 K/cumm [facility]NER BJW Blood 01/30/2025 2:45 PM CDT 01/30/2025 3:24 PM CDT Kirsten Noriega NP LAB BLOOD ORDERABLES Edite d Result - Final MARV [facility]ES[facility] [address] [facility]. [place] [address] * Hepatitis C antibody Blood (01/30/2025 2:45 PM CDT) Pathologist [facility] Hep C Ab Nonreactive Nonreactive Comment: Interpretive Data Nonreactive: Antibodies to HCV not detected. Does NOT exclude the possibility of recent exposure to HCV. Equivocal: Equivocal for HCV antibodies. Supplemental molecular testing will be automatically performed to determine infection status in accordance with current CDC screening recommendations. Reactive: Positive for HCV antibodies. This may represent current or past HCV infection. Supplemental molecular testing will be automatically performed to determine current infection status in accordance with current CDC screening recommendations. Interpretive data was last revised on 2019. Testing performed by: [facility], [address] [place] [address]., [address] Blood 01/30/2025 2:45 PM CDT 01/30/2025 6:09 PM CDT Kirsten Noriega NP LAB MICROBIOLOGY - GENERAL ORDERABLES Final Result Performing Organization Address City/[facility]/ZIP Co de Phone Number MARV [facility] [address] [employer]. Department [place] [address] * (ABNORMAL) Bizqh-8-ayeukhfnfkr (01/30/2025 2:45 PM CDT) alpha-1 antitrypsin 254(H) 90 - 200 mg/dL Comment:Testing performed by : [facility], [address] [place]., [address] Blood 01/30/2025 2:45 PM CDT 01/30/2025 6:30 PM CDT us Kirsten Noriega NP LAB BLOOD ORDERABLES Final Result Performing Organization Address City/[facility] Co de Phone Number MARV [facility] [address] [employer] [address] * Hepatitis A antibody, IgM Blood (01/30/2025 2:45 PM CDT) Hep A IgM Nonreactive Nonreactive Comment: Interpretive Data: If Hep A IgM Ab is reported as Equivocal, a new sample should be drawn in two weeks for testing. Current interpretive data was last revised on 19. Testing performed by: [facility], [address] [place] [address]., [address] Blood 01/30/2025 2:45 PM CDT 01/30/2025 6:09 PM CDT Kirsten Noriega NP LAB MICROBIOLOGY - GENERAL ORDERABLES Final Result Performing Organization Address [facility] Co de Phone Number MARV FLORES[facility] [address] [place] [employer]. [facility] [place] [address] * Hepatitis A antibody, total Blood (01/30/2025 2:45 PM CDT) Pathologist [facility] Hep A total Nonreactive Nonreactive Comment:Testing performed by : [facility], [address] [place] [address]., [id number] Blood 01/30/2025 2:45 PM CDT 01/30/2025 6:30 PM CDT us Kirsten Noriega NP LAB MICROBIOLOGY - GENERAL ORDERABLES Final Result Performing Organization Address [facility] de Phone Number [facility] [address] [employer]. [facility] [place] [address] * (ABNORMAL) Ceruloplasmin (01/30/2025 2:45 PM CDT) [facility] Ceruloplasmin 48.9(H) 16.0 - 45.0 mg/dL Comment:Testing performed by : [facility], [address] [place] [address]., [address] Blood 01/30/2025 2:45 PM CDT 01/30/2025 6:30 PM CDT Kirsten Noriega NP LAB BLOOD ORDERABLES Final Result Performing Organization Address [facility] de Phone Number [facility] [address] [employer]. [facility] [place] [address] * (ABNORMAL) Hepatitis B core antibody, total Blood (01/30/2025 2:45 PM CDT) [facility] Hep B core IgG/IgM Reactive( A) Nonreactive Comment:Testing performed by : [facility], [address] [facility], [place]., [address] Blood 01/30/2025 2:45 PM CDT 01/30/2025 6:30 PM CDT us Kirsten Noriega NP LAB MICROBIOLOGY - GENERAL ORDERABLES Final Result [facility] [address] [facility]. Department [place] [address] * (ABNORMAL) Manual Differential (01/30/2025 2:45 PM CDT) [facility] Differential Manual Cells Counted 116 CERNER [facility] Neutrophil abs 13.05(H) 1.50 - 6.50 K/cumm [facility] Imm gran abs 4.66(H) 0.00 - 0.10 K/cumm [facility] Lymphocyte abs 3.26 0.80 - 3.30 K/cumm [facility] Monocyte abs 0.93(H) 0.20 - 0.80 K/cumm [facility] Eosinophil abs 0.23 0.00 - 0.50 K/cumm [facility] Basophil abs 1.17(H) 0.00 - 0.10 K/cumm [facility] Neutrophil pct 56.0 % [facility] Comment: Interpretive Data Percent cell count reference ranges are not reported, since discordance with absolute values may lead to misinterpretation of CBC data. Current Interpretive Data was last revised on 2017. Lymphocyte pct 13.0 % [facility] Comment: Interpretive Data Percent cell count reference ranges are not reported, since discordance with absolute values may lead to misinterpretation of CBC data. Current Interpretive Data was last revised on 2017. Monocyte pct 4.0 % [facility] Comment: Interpretive Data Percent cell count reference ranges are not reported, since discordance with absolute values may lead to misinterpretation of CBC data. Current Interpretive Data was last revised on 2017. Eosinophil pct 1.0 % CERNER [facility] Comment: Interpretive Data Percent cell count reference ranges are not reported, since discordance with absolute values may lead to misinterpretation of CBC data. Current Interpretive Data was last revised on 2017. Basophil pct 5.0 % CERNER [facility] Comment: Interpretive Data Percent cell count reference ranges are not reported, since discordance with absolute values may lead to misinterpretation of CBC data. Current Interpretive Data was last revised on 2017. Metamyelocyte pct 8.0(H) 0.0 - 0.0 % C[facility]ER [facility] Myelocyte pct 12.0(H) 0.0 - 0.0 % CERNER [facility] Variant lymph pct 1.0(H) 0.0 - 0.0 % C[facility]ER [facility] RBC morphology Present(A) [facility]ER [facility] Polychromasia 3-7/HPF(A) C[facility]ER [facility] Anisocytosis Slight(A) [facility] Platelet estimate Automated Count Confirmed CERJARRED BJW[facility] Blood 01/30/2025 2:45 PM CDT 01/30/2025 8:33 PM CDT us Kirsten Noriega NP LAB BLOOD ORDERABLES Final Result MARV SUBRAMANIAN [address] [facility]. Department [place] [address] * Hepatitis B surface antibody (immune status) Blood (01/30/2025 2:45 PM CDT) HBsAb (immune status) Reactive Comment: This result is consistent with immunity to Hepatitis B Virus when used in the setting of routine screening. Current interpretive data was last revised on 22 Testing performed by: [facility], [address] [place] [address] HBsAb (immune status) index 38.2 mIUnits/m L MARV SUBRAMANIAN Comment:Testing performed by : [facility], [address] [place] [address] Blood 01/30/2025 2:45 PM CDT 01/30/2025 6:30 PM CDT Kirsten Gamboa Leann MCDOWELL LAB MICROBIOLOGY - GENERAL ORDERABLES Final Result Performing Organization Address [facility] de Phone Number MARV [facility] [address] [place] [employer]. [facility] [place] [address] * Hepatitis B Surface Antigen Blood (01/30/2025 2:45 PM CDT) [facility] HepBsAg Nonreactive Nonreactive Comment:Testing performed by : [facility], [address] [place] [address]., [address] Blood 01/30/2025 2:45 PM CDT 01/30/2025 6:09 PM CDT Kirsten Bee Leann MCDOWELL LAB MICROBIOLOGY - GENERAL ORDERABLES Final Result Performing Organization Address [facility] Phone Number [facility] [address] [facility] [employer]. [facility] [place] [address] * Gamma GT (01/30/2025 2:45 PM CDT) [facility] GGT 33 5 - 35 Units/L Blood 01/30/2025 2:45 PM CDT 01/30/2025 3:24 PM CDT Kirsten Gamboa Leann MCDOWELL LAB BLOOD ORDERABLES Final Result Performing Organization Address [facility] de Phone Number MARV B[facility] [address] [facility] [employer]. [facility] [place] [address] * IgG (01/30/2025 2:45 PM CDT) [facility] Immunoglobulin G 1,000 700 - 1,600 mg/dL Comment:Testing performed by : [facility], [address] [place] [address], [place]., [address] Blood 01/30/2025 2:45 PM CDT 01/30/2025 6:09 PM CDT Kirsten Noriega NP LAB BLOOD ORDERABLES Final Result Performing Organization Address [facility]/ZIP Co de Phone Number MARV SUBRAMANIAN [address] [employer] [employer]. [facility] [place] [address] * (ABNORMAL) Ferritin (01/30/2025 2:45 PM CDT) Pathologist [facility] Ferritin 323(H) 13 - 150 ng/mL Comment:Testing performed by : [facility], [facility], [place]., [address] Blood 01/30/2025 2:45 PM CDT 01/30/2025 6:09 PM CDT Kirsten Noriega RABBET OPERATOR LAB BLOOD ORDERABLES Final Result Performing Organization Address [facility] de Phone Number MARV SYCH [id number] [facility] [employer] [place] [address] * (ABNORMAL) Comprehensive metabolic panel (01/30/2025 2:45 PM CDT) Pathologist [facility] Sodium 140 135 - 145 mmol/L Potassium, pl 4.6 3.3 - 4.9 mmol/L [facility] Chloride 101 97 - 110 mmol/L [facility] CO2 22 22 - 32 mmol/L [facility] Anion gap 17(H) 2 - 15 mmol/L [facility] BUN 14 6 - 25 mg/dL [facility] Creatinine 0.73 0.60 - 1.10 mg/dL [facility] Glucose 85 70 - 199 mg/dL [facility] Comment: Interpretive Data Fasting glucose >/= 126 mg/dl is diagnostic for diabetes. Fasting is defined as no caloric intake for at least 8 hours. Fasting glucose between 100 mg/dl to 125 mg/dl is diagnostic of prediabetes. In a patient with classic symptoms of hyperglycemia or hyperglycemic crisis, a random glucose >/= 200 mg/dl is diagnostic for diabetes. In the absence of unequivocal hyperglycemia, results should be confirmed by repeat testing. The classification and Diagnosis of Diabetes Diabetes Care 2021; 46: S19-S40. Current interpretive data was last revised 2022. Calcium 10.0 8.5 - 10.3 mg/dL [facility] Bilirubin, total 0.3 0.1 - 1.2 mg/dL [facility] Protein, pl 7.8 6.5 - 8.5 g/dL [facility] Albumin 3.7 3.5 - 5.0 g/dL [facility] Alk phos 149(H) 40 - 130 Units/L [facility] ALT 17 7 - 45 Units/L [facility] AST 41 10 - 45 Units/L [facility] Blood 01/30/2025 2:45 PM CDT 01/30/2025 3:24 PM CDT us Kirsten Noriega NP LAB BLOOD ORDERABLES Final Result Performing Organization Address [facility] [place] Number [place] [address] [facility] Department [place] [employer] [address] * MEDHAT ab ql w/rflx to MEDHAT qn (01/30/2025 2:37 PM CDT) MEDHAT Negative Comment: Interpretive Data Normal range for MEDHAT Qualitative Antibody = Negative. 1. MEDHAT is performed using indirect immunofluorescence against HEp-2 cells 2. MEDHAT titers are performed on all positive qualitative results. 3. A significantly positive MEDHAT result is defined as a positive nuclear fluorescence at a titer of 1:80 or greater. 4. 15% of normal people above age 65 have significantly positive MEDHAT results. 5% or less of normal people age 65 or under have significantly positive MEDHAT results. Current interpretive data was last revised on 2020. Testing performed by: [facility], [address] [place] [address] Blood 01/30/2025 2:37 PM CDT 01/30/2025 6:30 PM CDT Kirsten Noriega NP LAB BLOOD ORDERABLES Final Result Performing Organization Address [facility] de Phone Number [facility] [address] [address] [facility] [place] [address] * Protime-INR (01/30/2025 2:37 PM CDT) PT 11.5 9.7 - 13.0 sec INR 1.06 0.90 - 1.20 [facility] Comment: Interpretive data Oral anticoagulant therapeutic ranges: Venous thromboembolism prophylaxis or treatment: 2.0-3.0 CARDIOLOGY Standard range: 2.0-3.0 High-intensity range: 2.5-3.5 Refer to indication-specific guidelines for appropriate target ranges for prosthetic heart valve replacement. Current interpretive data was last revised on 2019. Blood 01/30/2025 2:37 PM CDT 01/30/2025 3:24 PM CDT Kirsten Noriega NP LAB BLOOD ORDERABLES Final Result Performing Organization Address [facility] Phone Number MARV BJW[facility] [address] [place] [address] * RUQ Ultrasound (01/30/2025 2:32 PM CDT) Anatomical Region Laterality Modality Abdomen N/A Ultrasound 01/30/2025 2:54 PM CDT Impressions 01/30/2025 4:32 PM CDT Mild hepatic steatosis and surgically absent gallbladder; otherwise, normal right upper quadrant sonogram. Dictated by: Shreya Pritchett M.D. The radiology attending physician has personally reviewed this study, and had reviewed and/or edited this written report and agrees with it. Electronically signed by: Colby Palmer M.D. Narrative 01/30/2025 4:32 PM CDT EXAMINATION: LIMITED ABDOMINAL SONOGRAM HISTORY: 54-year-old, elevated liver function tests. COMPARISON: None FINDINGS: Liver: The liver is normal in size. The echotexture is normal. The echogenicity is increased. There is no surface nodularity. No focal solid lesions are visualized. Gallbladder: Surgically absent. Bile Duct: There is no intrahepatic bile duct dilatation. The diameter of the common duct is 3 mm in the proximal segment and 3 mm in the mid segment and 4 mm in the distal segment. Right Kidney: There is no hydronephrosis in the visualized portions of the right kidney. Pancreas: The visualized portions of the pancreas demonstrate no focal lesions. Inferior vena cava: The proximal IVC is normal. Other Findings: There is no ascites. Small right pleural effusion. Procedure Note Colby Palmer MD - 01/30/2025 EXAMINATION: LIMITED ABDOMINAL SONOGRAM HISTORY: 54-year-old, elevated liver function tests. COMPARISON: None FINDINGS: Liver: The liver is normal in size. The echotexture is normal. The echogenicity is increased. There is no surface nodularity. No focal solid lesions are visualized. Gallbladder: Surgically absent. Bile Duct: There is no intrahepatic bile duct dilatation. The diameter of the common duct is 3 mm in the proximal segment and 3 mm in the mid segment and 4 mm in the distal segment. Right Kidney: There is no hydronephrosis in the visualized portions of the right kidney. Pancreas: The visualized portions of the pancreas demonstrate no focal lesions. Inferior vena cava: The proximal IVC is normal. Other Findings: There is no ascites. Small right pleural effusion. IMPRESSION: Mild hepatic steatosis and surgically absent gallbladder; otherwise, normal right upper quadrant sonogram. Dictated by: Shreya Pritchett M.D. The radiology attending physician has personally reviewed this study, and had reviewed and/or edited this written report and agrees with it. Electronically signed by: Colby Palmer M.D. Kirsten Noriega NP IMG US PROCEDURES Final Re sult * Liver Elastography w/o Imaging W/I&R -[facility] (All Locations) (01/30/2025 1:48 PMCDT) Anatomical Region Laterality Modality Other us Kirsten Noriega NP GI PROCEDURE ORDERABLES Fi nal Result from Last 3 Months Insurance [place] Care Teams Machine Sewer Relationship Specialty Start [place] [id number] [address] PCP - General Internal Medicine 12/29/24
--- OUTSIDE RECORDS SUMMARY | 2025-02-21 15:50 | XMS_ITS | Encounter Summary ---
Author Organization [facility] Address [facility] [place] [address] Care Team Providers Care Drug Worker Name Role Phone Clarita Grissom MD Primary Care Provider [phone] Encounter Details Date Type Department Care Team ([facility] st Contact Info) Description 01/10/2025 Results Follow-Up [facility] Family & Internal Medicine - [address] [address] Clarita Grissom [place] [id number] [place] [id number] IRON SAT PANEL (IRON,IBC,%SAT), HEMOGLOBIN, GLYCOSYLATED, ALBUMIN URINE RANDOM W/CREATININE, Additional followed-up results: 2 Social History Tobacco Use Types Packs/Day Years Used Date Smoking Tobacco: Every Day Cigarettes Smokeless Tobacco: Never Alcohol Use Standard Drinks/Week Comments Never 0 [...] on file documented as of this encounter Progress Notes * Clarita Grissom MD - 01/10/2025 11:36 AM CDT Labs-acceptable except her cholesterol which should be lower -let me know if she is willing to change her statin cholesterol pill. Pt to include iron rich food in her diet including greens. Continue current meds as prescribed/keep follow up appointment . documented in this encounter Plan of Treatment Upcoming Encounters Date Type Department Care Team (Late st Contact Info) Description 03/20/2025 9:20 AM CDT Office Visit [facility] Family & Internal Medicine [facility] [address] [place] [address] [place] [address] [address] documented as of this encounter Visit Diagnoses Not on filedocumented in this encounter Additional Health Concerns Assessment Noted Time PHQ-9 Depression Total Score: 10 025 11:17 AM CDT documented as of this encounter Care Teams Drug Worker Relationship Specialty Start [place] [id number] [address] PCP - General INTERNAL MEDICINE 11/10/24 documented as of this encounter
--- OUTSIDE RECORDS SUMMARY | 2025-02-21 15:50 | XMS_ITS | Encounter Summary ---
Author Organization [facility] NEHAL Wagner [facility] Address [address] [place] [address] Care Team Providers Care Lead Fabricator Name Role Phone Lainey Maria Primary Care Provider [phone] Encounter Details Date Type Department Care Team ([facility] st Contact Info) Description 02/21/2025 4:00 PM CDT Office Visit [facility] On[facility] and [facility]ology - [place] [address] [facility] [address] [place] [address] Miguel Angel Salmon MD [address] [facility] [address] [place] [address] Chronic anemia (Primary Dx) Social History Tobacco Use Types Packs/Day Years [...] on file documented as of this encounter Last Filed Vital Signs Vital Sign Reading [...] Mass Index 29.05 02/21/2025 3:05 PM CDT documented in this encounter Plan of Treatment Upcoming Encounters Date Type Department Care Team (Late st Contact Info) Description 03/20/2025 2:00 PM CDT Office Visit [facility] Oncology and Hematology - [place] [address] [facility] [address] [place] [address] Miguel Angel Salmon MD [address] [facility] [address] [place] [address] Scheduled Orders Name Type Priority Associated Diagnoses Orde r Schedule CBC WITH DIFFERENTIAL Lab Stat Chronic anemia Expected: 02/21/2025, Expires: 02/21/2026 COMPREHENSIVE METABOLIC PANEL Lab Stat Chronic anemia Expected: 02/21/2025, Expires: 02/21/2026 FERRITIN Lab Routine Chronic anemia Expected: 02/21/2025, Expires: 02/21/2026 IRON, TIBC, AND PERCENT SATURATION Lab Routine Chronic anemia Expected: 02/21/2025, Expires: 02/21/2026 VITAMIN B12 AND FOLATE Lab Routine Chronic anemia Expected: 02/21/2025, Expires: 02/21/2026 MISCELLANEOUS LAB TEST Lab Routine Chronic anemia Expected: 02/21/2025, Expires: 02/21/2026 BASIC METABOLIC PANEL Lab Stat Chronic anemia Expected: 03/14/2025, Expires: 02/21/2026 CBC WITH DIFFERENTIAL Lab Stat Chronic anemia Expected: 03/14/2025, Expires: 02/21/2026 documented as of this encounter Visit Diagnoses Diagnosis Chronic anemia- Primary Anemia, unspecified documented in this encounter Care Teams Lead Fabricator Relationship Specialty Start Date End Date Lainey Maria PA PCP - General Physician Cementer Helper 03/22/19 documented as of this encounter
--- OUTSIDE RECORDS SUMMARY | 2025-02-21 15:50 | XMS_ITS | Referral Summary ---
Author Organization [facility] Address [address] [place] [address] Care Team Providers Care Injection Molding Process Technician Name Role Phone Clarita Grissom MD Primary Care Provider [phone] Encounters Date Type Department Care Team Description 02/02/2025 Telephone [facility] Gastroenterology [address] [facility] 2nd Floor [address] [place] [address] Kirsten Noriega NP 02/01/2025 Telephone [facility] Gasteroenterology [address] [facility] 12th [place] [address] [place] [address] Kirsten Noriega NP 01/30/2025 Results Follow-Up [facility] Gastroenterology [facility] Medical Office Building [address], [address] [place] [id number] Kirsten Noriega, JEREMIAS Liver Elastography w/o Imaging W/I&R -[facility] (All Locations), RUQ Ultrasound, Protime-INR, Additional followed-up results: 01/30/2025 1:55 PM CDT Lab [facility] [address] [place] [address] Elevated liver function tests 01/30/2025 2:08 PM CDT - 01/30/2025 11:59 PM CDT Hospital Encounter [facility] Imaging [address] [address] Elevated liver function tests Discharge Disposition: Discharge to home or self care 01/30/2025 1:30 PM CDT Procedure visit [facility] Gastroenterology [address] [place] [address] Medical Office Building [address], [address] [place] [address] Elevated liver function tests 01/30/2025 1:00 PM CDT Office Visit [facility] Gastroenterology [address] [facility] [address], [address] [place] [address] Kirsten Noriega, JEREMIAS Elevated liver function tests (Primary Dx); Encounter for colorectal cancer screening from Last 3 Months Allergies Active Allergy Reactions Criticality Noted Date Comments Iodinated Contrast Media Hives High 04/13/2019 Medications omega-3 fatty acids 1,000 mg capsule Take 1,000 mg by mouth 2 (two) times a day Active ergocalciferol (DRISDOL) 8,000 unit/mL drops Take by mouth Active vitamin B complex capsule Take 1 capsule by mouth daily Active iron aspgly,ps-C-B12 -FA-Ca-suc 150-60-25-1 tx-qs-src-mg capsule Take by mouth Active turmeric root [...] (01/30/2025 2:20 PM CDT): Patient deferred colonoscopy. Social History Tobacco Use Types Packs/Day Years [...] 01/30/2025 12:43 PM CDT Plan of Treatment Not on file Procedures Procedure Name Priority Date/Time Associated Diagnosis Comments MANUAL DIFFERENTIAL Routine 01/30/2025 2 :45 PM CDT Elevated liver function tests SENIOR STAFF REVIEW Routine 01/30/2025 2 :45 PM CDT Elevated liver function tests EGFR Routine 01/30/2025 2:45 PM CDT Elevated liver function tests PHOSPHATIDYLETHANOL Routine 01/30/2025 2 :45 PM CDT Elevated liver function tests [id number] Routine 01/30/2025 2 :45 PM CDT Elevated [...] (01/30/2025 2:45 PM CDT) PHOSPHATIDYLETHANOL Negative . [facility] Comment: ADDITIONAL INFORMATION This report is intended for use in clinical monitoring and management of patients. It is not intended for use in employment-related testing. This test was developed and its performance characteristics determined by [facility] in a manner consistent with CLIA requirements. This test has not been cleared or approved by the U.S. Food and Drug Administration. Test Performed by: [facility] [address] [address] Naturalist: iMryam Cornell Ph.D.; CLIA# [id number] PEth 16:0/18:1 (POPEth)by LC-MS/MS <10 Cutoff: 10 ng/mL [facility] Comment: Phosphatidylethanol (PEth) homologues result interpretation PEth [...] by LC-MS/MS <10 Cutoff: 10 ng/mL MARV FLORESW[facility] Comment: PEth 16:0/18:2 (PLPEth) Reference ranges are not well established Blood 01/30/2025 2:45 PM CDT 01/30/2025 3:24 PM CDT Kirsten Noriega CHILDCARE ADMINISTRATOR LAB BLOOD ORDERABLES Final Result Performing Organization Address [facility] Co de Phone Number MARV FLORESCH [address] [address] [place] [address] [facility] * eGFR (01/30/2025 2:45 PM [...] BLOOD ORDERABLES Final Result Performing Organization Address [facility]/ZIP Co de Phone Number MARV FLORESWCH [address] [address] [place] [address] * Smooth muscle antibody, qualitative (01/30/2025 2:45 PM CDT) Anti-smooth muscle Negative Negative Comment:Testing performed by : [facility], [address] [place]., [address] Blood 01/30/2025 2:45 PM CDT 01/30/2025 6:30 PM CDT Kirsten Noriega NP LAB BLOOD ORDERABLES Final Result Performing Organization Address [facility] Co de Phone Number MARV BJWCH [address] [facility] ?. [place] [address] * Senior staff review (01/30/2025 2:45 PM CDT) Pathologist [facility] [place] Senior Staff Review Specimen Blood Comment:Testing performed by : [facility], [address] [place]., [address] Senior Staff Review Review Done MARV SUBRAMANIAN Comment: Reviewed by senior staff.01/31/2025 08:59:08 CDT by marcelo christensen ([facility] Testing performed by: [facility], [address] [place]., [address] Blood 01/30/2025 2:45 PM CDT 01/30/2025 8:33 PM CDT us Ben Lara MD LAB BLOOD ORDERABLES Edited Re sult - Final Performing Organization Address [facility] Co de Phone Number MARIYANER BJWCH [address] [facility]. [facility] [email or web address] [address] * Mitochondrial antibodies, qualitative (01/30/2025 2:45 PM CDT) Anti-mitochond rial Negative Negative Comment:Testing performed by : [facility], [address] [facility] [place]., [address] Blood 01/30/2025 2:45 PM CDT 01/30/2025 6:30 PM CDT Kirsten Noriega CHILDCARE ADMINISTRATOR LAB BLOOD ORDERABLES Final Result Performing Organization Address [facility]/ZIP Co de Phone Number MARV SYCH [address] [facility]. [facility] [email or web address] [place], [place] [phone] * (ABNORMAL) Iron profile w/ IBC (01/30/2025 2:45 PM CDT) Pathologist [facility] [place] Iron 20(L) 35 - 145 mcg/dL Comment:Testing performed by : [facility], [address] [place] [address]., [address] TIBC 317 250 - 400 mcg/dL MARV SUBRAMANIAN Comment:Testing performed by : [facility], [address] [place] [address]., [address] Transferrin saturation 6(L) 20 - 50 % MARV SUBRAMANIAN Comment:Testing performed by : [facility], [address] [place] [address]., [address] Blood 01/30/2025 2:45 PM CDT 01/30/2025 6:09 PM CDT us Kirsten Noriega CHILDCARE ADMINISTRATOR LAB BLOOD ORDERABLES Final Result Performing Organization Address [facility] Co de Phone Number MARV SYCH [address] [facility] [email or web address] [place], [place] [phone] * (ABNORMAL) CBC with auto differential (01/30/2025 2:45 PM CDT) WBC 23.31(H) 3.80 - 9.90 K/cumm Comment:WBC corrected for NR BCs. Report corrected on 01/30/2025 17:03:06 CDT by KGABRIELLA: Previously reported as 23.42. Hgb 9.9(L) 11.9 - 15.5 g/dL MARV SUBRAMANIAN Hct 32.1(L) 35.6 - 45.5 % MARV BJWTORI Plt 158 150 - 400 K/cumm CERNER BJWTORI MPV 10.4 9.1 - 12.3 fL MARV SUBRAMANIAN RBC 3.19(L) 3.90 - 5.20 M/cumm MARV SUBRAMANIAN MCV 100.6(H) 81.3 - 96.4 fL MARV SUBRAMANIAN MCH 31.0 27.1 - 33.3 pg MARV SUBRAMANIAN MCHC 30.8(L) 32.3 - 35.7 g/dL MARV SUBRAMANIAN RDW CV 18.1(H) 11.1 - 14.9 % MARV SUBRAMANIAN RDW SD 65.6(H) 35.7 - 48.1 fL MARV SUBRAMANIAN NRBC abs 1.76(H) 0.00 - 0.01 K/cumm MARV SUBRAMANIAN Blood 01/30/2025 2:45 PM CDT 01/30/2025 3:24 PM CDT Kirsten Noriega NP LAB BLOOD ORDERABLES Edite d Result - Final MARV SUBRAMANIAN [address] [facility] [place] [address] * Hepatitis C antibody Blood (01/30/2025 2:45 PM CDT) Hep C Ab Nonreactive Nonreactive Comment: Interpretive [...] last revised on 2019. Testing performed by: [facility], [facility], [place]., [address] Blood 01/30/2025 2:45 PM CDT 01/30/2025 6:09 PM CDT Kirsten Noriega NP LAB MICROBIOLOGY - GENERAL ORDERABLES Final Result Performing Organization Address City/[facility]/ZIP Co de Phone Number MARV FLORESCH [address] [address] [place] [address] * (ABNORMAL) Plhah-0-dmqagblrmte (01/30/2025 2:45 PM CDT) alpha-1 antitrypsin 254(H) 90 - 200 mg/dL Comment:Testing performed by : [facility], [address] [place]., [address] Blood 01/30/2025 2:45 PM CDT 01/30/2025 6:30 PM CDT us Kirsten Bee Leann MCDOWELL LAB BLOOD ORDERABLES Final Result Performing Organization Address [facility] Co de Phone Number MARV FLORESCH [address] [address] Department of [employer] [place], [place] [phone] * Hepatitis A antibody, IgM Blood (01/30/2025 2:45 PM CDT) Hep A IgM Nonreactive Nonreactive Comment: Interpretive Data: If Hep A IgM Ab is reported as Equivocal, a new sample should be drawn in two weeks for testing. Current interpretive data was last revised on 19. Testing performed by: [facility], [facility], [place]., [address] Blood 01/30/2025 2:45 PM CDT 01/30/2025 6:09 PM CDT us Kirsten Gamboa Leann MCDOWELL LAB MICROBIOLOGY - GENERAL ORDERABLES Final Result Performing Organization Address City/[facility] Co de Phone Number MARV FLORESCH [address] [address] Department [employer] [place], [place] [phone] * Hepatitis A antibody, total Blood (01/30/2025 2:45 PM CDT) Hep A total Nonreactive Nonreactive Comment:Testing performed by : [facility], [address] [place] [address]., [address] Blood 01/30/2025 2:45 PM CDT 01/30/2025 6:30 PM CDT Kirsten Noriega NP LAB MICROBIOLOGY - GENERAL ORDERABLES Final Result Performing Organization Address City/[facility]/ZIP Co de Phone Number MARV [facility] [address] [address]. [facility] [email or web address] [address] * (ABNORMAL) Ceruloplasmin (01/30/2025 2:45 PM CDT) Ceruloplasmin 48.9(H) 16.0 - 45.0 mg/dL Comment:Testing performed by : [facility], [address] [place] [address]., [address] Blood 01/30/2025 2:45 PM CDT 01/30/2025 6:30 PM CDT us Kirsten Noriega NP LAB BLOOD ORDERABLES Final Result Performing Organization Address [facility] Co de Phone Number [facility] [address] [address] [facility] [place], [place] [phone] * (ABNORMAL) Hepatitis B core antibody, total Blood (01/30/2025 2:45 PM CDT) Hep B core IgG/IgM Reactive( A) Nonreactive Comment:Testing performed by : [facility], [address] [place] [address], [place]., [address] Blood 01/30/2025 2:45 PM CDT 01/30/2025 6:30 PM CDT Kirsten Noriega NP LAB MICROBIOLOGY - GENERAL ORDERABLES Final Result Performing Organization Address City/[facility] Co de Phone Number [facility] [address] [address]. [facility] [email or web address] [place], [place] [phone] * (ABNORMAL) Manual Differential (01/30/2025 2:45 PM CDT) Differential Manual Cells Counted 116 CERNER BJWCH Neutrophil abs 13.05(H) 1.50 - 6.50 K/cumm CERNER BJWCH Imm gran abs 4.66(H) 0.00 - 0.10 K/cumm CERNER BJWCH Lymphocyte abs 3.26 0.80 - 3.30 K/cumm CERNER BJWCH Monocyte abs 0.93(H) 0.20 - 0.80 K/cumm CERNER BJWCH Eosinophil abs 0.23 0.00 - 0.50 K/cumm CERNER BJWCH Basophil abs 1.17(H) 0.00 - 0.10 K/cumm CERNER BJWCH Neutrophil pct 56.0 % CERNER BJWCH Comment: Interpretive Data Percent cell count reference ranges are not reported, since discordance with absolute values may lead to misinterpretation of CBC data. Current Interpretive Data was last revised on 2017. Lymphocyte pct 13.0 % CERNER [facility] Comment: Interpretive Data Percent cell count reference ranges are not reported, since discordance with absolute values may lead to misinterpretation of CBC data. Current Interpretive Data was last revised on 2017. Monocyte pct 4.0 % CERNER BJCH Comment: Interpretive Data Percent cell count reference ranges are not reported, since discordance with absolute values may lead to misinterpretation of CBC data. Current Interpretive Data was last revised on 2017. Eosinophil pct 1.0 % CERNER BJW Comment: Interpretive Data Percent cell count reference ranges are not reported, since discordance with absolute values may lead to misinterpretation of CBC data. Current Interpretive Data was last revised on 2017. Basophil pct 5.0 % CERNER BJW Comment: Interpretive Data Percent cell count reference ranges are not reported, since discordance with absolute values may lead to misinterpretation of CBC data. Current Interpretive Data was last revised on 2017. Metamyelocyte pct 8.0(H) 0.0 - 0.0 % CERNER BJWCH Myelocyte pct 12.0(H) 0.0 - 0.0 % CERNER BJWCH Variant lymph pct 1.0(H) 0.0 - 0.0 % MARV FLORESWCH RBC morphology Present(A) MARV FLORESWCH Polychromasia 3-7/HPF(A) CERNER BJWCH Anisocytosis Slight(A) MARV BJWCH Platelet estimate Automated Count Confirmed MARV FLORESWCH Blood 01/30/2025 2:45 PM CDT 01/30/2025 8:33 PM CDT us Kirsten Noriega NP LAB BLOOD ORDERABLES Final Result Performing Organization Address [facility] Co de Phone Number MARV FLORESCH [address] [address] [facility] [place], [place] [phone] * Hepatitis B surface antibody (immune status) Blood (01/30/2025 2:45 PM CDT) HBsAb (immune status) Reactive Comment: This result is consistent with immunity to Hepatitis B Virus when used in the setting of routine screening. Current interpretive data was last revised on 22 Testing performed by: [facility], [address] [place]., [address] HBsAb (immune status) index 38.2 mIUnits/m L MARV SUBRAMANIAN Comment:Testing performed by : [facility], [address] [place]., [address] Blood 01/30/2025 2:45 PM CDT 01/30/2025 6:30 PM CDT us Kirsten Noriega NP LAB MICROBIOLOGY - GENERAL ORDERABLES Final Result Performing Organization Address City/[facility]/ZIP Co de Phone Number MARV FLORESCH [address] [address] [place] [address] * Hepatitis B Surface Antigen Blood (01/30/2025 2:45 PM CDT) HepBsAg Nonreactive Nonreactive Comment:Testing performed by : [facility], [address] [place] [address]., [address] Blood 01/30/2025 2:45 PM CDT 01/30/2025 6:09 PM CDT Kirsten Bee Leann MCDOWELL LAB MICROBIOLOGY - GENERAL ORDERABLES Final Result Performing Organization Address [facility] Co de Phone Number MARV shoplyCH [address] [address]. [facility] [email or web address] [address] * Gamma GT (01/30/2025 2:45 PM CDT) [facility] GGT 33 5 - 35 Units/L Blood 01/30/2025 2:45 PM CDT 01/30/2025 3:24 PM CDT Result [facility] Kirsteneleazar Gamboa Leann MCDOWELL LAB BLOOD ORDERABLES Final Result Performing Organization Address [facility] de Phone Number [facility] [address] [address] [email or web address] [address] * IgG (01/30/2025 2:45 PM CDT) [facility] Immunoglobulin G 1,000 700 - 1,600 mg/dL Comment:Testing performed by : [facility], [address] [place] [address]., [address] Blood 01/30/2025 2:45 PM CDT 01/30/2025 6:09 PM CDT Kirsten Gamboa Leann MCDOWELL LAB BLOOD ORDERABLES Final Result Performing Organization Address [facility] Co de Phone Number [facility] [address] [address]. [facility] [employer] [place], [place] [id number] * (ABNORMAL) Ferritin (01/30/2025 2:45 PM CDT) [facility] Ferritin 323(H) 13 - 150 ng/mL Comment:Testing performed by : [facility], [address] [place] [address]., [address] Blood 01/30/2025 2:45 PM CDT 01/30/2025 6:09 PM CDT us Kirsten Bee Noriega JEREMIAS LAB BLOOD ORDERABLES Final Result [facility] [address] [facility]. [place] [address] * (ABNORMAL) Comprehensive metabolic panel (01/30/2025 2:45 PM CDT) Sodium 140 135 - 145 mmol/L Potassium, pl 4.6 3.3 - 4.9 mmol/L CERNER BJWCH Chloride 101 97 - 110 mmol/L CERNER BJWCH CO2 22 22 - 32 mmol/L CERNER BJWCH Anion gap 17(H) 2 - 15 mmol/L CERNER BJWCH BUN 14 6 - 25 mg/dL CERNER BJWCH Creatinine 0.73 0.60 - 1.10 mg/dL CERNER BJWCH Glucose 85 70 - 199 mg/dL CERNER BJWCH Comment: Interpretive Data Fasting glucose >/= 126 [...] 01/30/2025 3:24 PM CDT us Kirsten Noriega CHILDCARE ADMINISTRATOR LAB BLOOD ORDERABLES Final Result Performing Organization Address [facility] de Phone Number MARV [facility] [address] [facility]. [facility] [email or web address] [place], [place] [phone] * MEDHAT ab ql w/rflx to MEDHAT qn (01/30/2025 2:37 PM CDT) MEDHAT Negative Comment: Interpretive Data Normal range for MEDHAT Qualitative Antibody = Negative. 1. MDEHAT is performed using indirect immunofluorescence against HEp-2 [...] age 65 or under have significantly positive MEDAHT results. Current interpretive data was last revised on 2020. Testing performed by: [facility], [address] [facility], [place]., [address] Blood 01/30/2025 2:37 PM CDT 01/30/2025 6:30 PM CDT us Kirsten Noriega JEREMIAS LAB BLOOD ORDERABLES Final Result Performing Organization Address [facility] de Phone Number MARV [facility] [address] [facility] [email or web address] [address] * Protime-INR (01/30/2025 2:37 PM CDT) PT 11.5 9.7 - 13.0 sec INR 1.06 0.90 - 1.20 MARV SUBRAMANIAN Comment: Interpretive data Oral anticoagulant therapeutic ranges: Venous thromboembolism prophylaxis or treatment: 2.0-3.0 CARDIOLOGY Standard range: 2.0-3.0 High-intensity range: 2.5-3.5 Refer to indication-specific guidelines for appropriate target ranges for prosthetic heart valve replacement. Current interpretive data was last revised on 2019. Blood 01/30/2025 2:37 PM CDT 01/30/2025 3:24 PM CDT us Kirsten Noriega CHILDCARE ADMINISTRATOR LAB BLOOD ORDERABLES Final Result Performing Organization Address City/State/ZIP Co ne Phone Number MARV BJWCH [address] [facility]. [place] [address] * RUQ Ultrasound (01/30/2025 2:32 PM CDT) [...] it. Electronically signed by: Colby Palmer M.D. us Kirsten Noriega NP IMG US PROCEDURES Final Re sult * Liver Elastography w/o Imaging W/I&R -[facility] (All Locations) (01/30/2025 1:48 PMCDT) Anatomical Region Laterality Modality Other us Kirsten Noriega NP GI PROCEDURE ORDERABLES Fi nal Result from Last 3 Months Insurance [place] Care Teams Injection Molding Process Technician Relationship Specialty Start [place] [phone] [address] PCP - General Internal Medicine 12/29/24
[2025-02-21 16:02] LABS: Hematocrit 31.4 % (37.0-47.0); Hemoglobin 10.0 g/dL (12.0-15.0); Mean Corpuscular HGB Conc 31.8 g/dl (32-36); Mean Corpuscular Hemoglobin 31.1 pg (26-34); Mean Corpuscular Volume 97.5 fl (80-100); Platelet Count Result 111 k/mm3 (150-375); Red Blood Count 3.22 M/mm3 (4.2-5.4); White Blood Count 21.1 K/mm3 (4.5-10.0)
[2025-02-21 16:16] LABS: Anisocytosis 1+; Band Neutrophils Percent 2 % (0-6); Eosinophils Absolute Manual 0.42 K/mm3 (0.02-0.50); Eosinophils Percent Manual 2 % (0-4); Lymphocytes Absolute Manual 3.79 K/mm3 (1.1-4.5); Lymphocytes Percent Manual 18.0 % (18-44); Monocytes Absolute Manual 2.95 K/mm3 (0.1-0.90); Monocytes Percent Manual 14 % (3-9); Neutrophils Absolute Manual 13.92 K/mm3 (1.3-6.7); Neutrophils Percent Manual 64 % (46-73); Schistocytes None Seen; Total Cells Counted 100
[2025-02-21 17:02] LABS: Alanine Aminotransferase 21 U/L (6-35); Albumin Level 3.9 g/dL (3.5-5.1); Alkaline Phosphatase 120 U/L (38-126); Anion Gap 12 mmol/L (4-12); Aspartate Amino Transferase 42 U/L (14-36); Bilirubin,Total 0.4 mg/dL (0.2-1.3); Blood Urea Nitrogen 12 mg/dL (7-17); Calcium 9.3 mg/dL (8.4-10.2); Carbon Dioxide 24 mmol/L (22-30); Chloride 103 mmol/L (98-107); Estimated Glomerular Filt Rate > 60; Glucose 103 mg/dL (65-110); Iron 45 ug/dL (37-170); Potassium 4.3 mmol/L (3.4-5.0); Sodium 139 mmol/L (137-145); Total Protein 7.9 g/dL (6.3-8.2)
[2025-02-21 17:13] LABS: Percent Iron Saturation 14 % (20-50)
[2025-02-21 17:47] LABS: Ferritin 380.00 ng/mL (11.1-264)
[2025-02-21 18:14] LABS: Vitamin B12 > 1000.0 pg/mL (239-931)
== END 2025-02-21 15:48 | disposition home or self-care (01) ==
PROVIDERS: Visit Provider Internal Medicine Hematology & Oncology
DX: D64.9 Anemia, unspecified (principal)
CPT/HCPCS: 36415; 80053; 82607; 82728; 82746; 83540; 83550; 85025

== ENCOUNTER 2025-03-20 13:50 | Outpatient (CLI) | payer BC, SELFPAY ==
[2025-03-20 14:05] LABS: Hematocrit 33.6 % (37.0-47.0); Hemoglobin 10.1 g/dL (12.0-15.0); Mean Corpuscular HGB Conc 30.1 g/dl (32-36); Mean Corpuscular Hemoglobin 29.6 pg (26-34); Mean Corpuscular Volume 98.5 fl (80-100); Platelet Count Result 127 k/mm3 (150-375); Red Blood Count 3.41 M/mm3 (4.2-5.4); White Blood Count 29.2 K/mm3 (4.5-10.0)
--- OUTSIDE RECORDS SUMMARY | 2025-03-20 14:06 | XMS_ITS | Clinical Summary ---
Author Organization [facility] Address [address] [place] [id number] Care Team Providers Care Primary Health Care Nurse Name Role Phone Clarita Grissom MD Primary Care Provider [phone] Allergies Active Allergy Reactions Criticality Noted Date Comments Iodinated Contrast Media Hives High 04/13/2019 Medications aspirin 81 MG chewable tablet Chew 1 tablet (81 mg total) by mouth daily. Active metFORMIN ER (GLUCOPHAGE-XR) 500 MG 24 hr tabletIndications: Type 2 diabetes mellitus without complication, without long-term current use of insulin ([facility]/HCC HHS/[facility]) Take 1 tablet (500 mg total) by [...] ng multiple sites with positive rheumatoid factor ([facility]/HCC HHS/HCC) 11/14/2024 Assessment & Plan (01/09/2025 5:19 PM CDT): -pt was seen by electrodynamicist and rxed with steroid /pt was referred to see site acquisition manager for hep B per pt before starting MTX -pt to f/u with electrodynamicist Assessment & Plan (11/15/2024 12:57 PM CDT): -will refer to rhematologist saen -rx with prednisone for flare up -check [...] complication, without long-term current use of insulin ([facility]) 11/08/2024 Assessment & Plan (01/09/2025 5:19 PM [...] ductal carcinoma of right breast (CMS/H CC [facility]) 03/25/2019 Assessment & Plan (01/09/2025 5:19 PM [...] Encounters Date Type Department Care Team Description 02/04/2025 Scan [facility] SRVCS Scanned, [facility] CT (SCAN) 02/02/2025 Scan [facility] SRVCS Scanned, [facility] Image (SCAN); CT (SCAN) 02/01/2025 Telephone [facility] Family & Internal [address] [phone] Clarita Grissom MD Information 01/30/2025 Scan [facility] SRVCS Scanned, [facility] Lab (SCAN) 01/10/2025 Results Follow-Up [facility] Internal [address] [phone] Clarita Grissom MD IRON SAT PANEL (IRON,IBC,%SAT), HEMOGLOBIN, GLYCOSYLATED, ALBUMIN URINE RANDOM W/CREATININE, Additional followed-up results: 2 01/09/2025 12:47 PM CDT - 01/09/2025 11:59 PM CDT Hospital Encounter [facility] [address] [place] [address] Clarita Grissom MD Discharge Disposition: Home or Self Care (Routine Discharge) 01/09/2025 10:10 AM CDT Laboratory Only [facility] [address] [phone] Clarita Grissom MD 01/09/2025 9:00 AM CDT Office Visit [facility] Internal [address] [phone] Clarita Grissom MD Follow Up (3 wk [...] Care Team (Late st Contact Info) Description 04/03/2025 7:00 AM CDT Office Visit [facility] Family & Internal Medicine - [address] [place] [address] [phone] Clarita Grissom MD [address] [place] [address] [place] [address] Health Maintenance Due Date Last Done Comments [...] Screening wi th HPV 01/09/2023 COVID-19 Vaccine ( - 2023-2 5 season) 2024 Hemoglobin A1C 07/11/2025 01/09/2025, 10/26/2024 Kidney Health Evaluation 01/09/2026 01/09/2025 Lipid Panel 01/09/2026 01/09/2025 PHQ-2 (Physician [place]) Completed 11/08/2024 Meningococcal B Vaccine Aged Out No l onger eligible based on patient's age to complete this topic Meningococcal Vaccine Aged Out No avel tamar eligible based on patient's age to complete this topic RSV Immunizations Under 20 Months Aged Out No longer eligible b ased on patient's age to complete this topic Procedures Procedure Name Priority Date/Time Associated Diagnosis Comments CT GENERIC 02/04/2025 CT GENERIC 02/02/2025 IMAGE GENERIC 02/02/2025 IMAGE GENERIC 02/02/2025 IMAGE GENERIC 02/02/2025 IMAGE GENERIC 02/02/2025 IMAGE GENERIC 02/02/2025 IMAGE GENERIC 02/02/2025 OUTSIDE LAB (SCAN ORDER) 01/30/2025 OUTSIDE LAB (SCAN ORDER) 01/30/2025 OUTSIDE PT/INR (SCAN ORDER) 01/30/2025 OUTSIDE LAB (SCAN ORDER) 01/30/2025 OUTSIDE LAB (SCAN ORDER) 01/30/2025 OUTSIDE LAB (SCAN ORDER) 01/30/2025 OUTSIDE LAB (SCAN ORDER) 01/30/2025 OUTSIDE LAB (SCAN ORDER) 01/30/2025 OUTSIDE LAB (SCAN ORDER) 01/30/2025 OUTSIDE LAB (SCAN ORDER) 01/30/2025 OUTSIDE LAB (SCAN ORDER) 01/30/2025 OUTSIDE LAB (SCAN ORDER) 01/30/2025 OUTSIDE LAB (SCAN ORDER) 01/30/2025 OUTSIDE LAB (SCAN ORDER) 01/30/2025 OUTSIDE LAB (SCAN ORDER) 01/30/2025 OUTSIDE LAB (SCAN ORDER) 01/30/2025 OUTSIDE LAB (SCAN ORDER) 01/30/2025 OUTSIDE LAB (SCAN ORDER) 01/30/2025 COLLECTION VENOUS BLOOD VENIPUNCTURE Routine 01/09/2025 10:36 AM CDT Type 2 diabetes mellitus without complication, without long-term current use of insulin ([facility]) Other hyperlipidemia Anemia in other chronic diseases classified elsewhere COMPREHENSIVE METABOLIC PANEL Routine 01/09/2025 10:09 AM CDT Type 2 diabetes mellitus without complication, without long-term current use of insulin ([facility]) LIPID PANEL Routine 01/09/2025 10:09 AM CDT Other hyperlipidemia ALBUMIN URINE RANDOM W/CREATININE Routine 01/09/2025 10:09 AM CDT Type 2 diabetes mellitus without complication, without long-term current use of insulin ([facility]) HEMOGLOBIN, GLYCOSYLATED Routine 01/09/2025 10:09 AM CDT Type 2 diabetes mellitus without complication, without long-term current use of insulin ([facility]) IRON SAT PANEL (IRON,IBC,%SAT) Routine 01/09/2025 10:09 AM CDT Anemia in other chronic diseases classified elsewhere from Last 3 Months Results * CT GENERIC (02/04/2025) Only the most recent of2 resultswithin the time period is included. Anatomical Region Laterality Modality Other 02/04/2025 [facility] Group Scanned SCANNING Final Resu lt * IMAGE GENERIC (02/02/2025) Only the most recent of6 resultswithin the time period is included. Anatomical Region Laterality Modality Other 02/02/2025 us Doc [facility] Group Scanned SCANNING Final Resu lt * OUTSIDE PT/INR (SCAN ORDER) (01/30/2025) 01/30/2025 [facility] Group Scanned SCANNING Final Resu lt * OUTSIDE LAB (SCAN ORDER) (01/30/2025) Only the most recent of17 resultswithin the time period is included. 01/30/2025 [facility] Group Scanned SCANNING Final Resu lt * (ABNORMAL) HEMOGLOBIN, GLYCOSYLATED (01/09/2025 10:09 AM CDT) HGB A1C 6.3(H) <5.7 % 01/09/2025 1:35 PM CDT [facility] Comment: INCREASED RISK OF DIABETES <5.7% NON-DIABETES 5.7-6.4% INCREASED RISK FOR FUTURE DIABETES > OR = 6.5 CONSISTENT WITH DIABETES STANDARDS OF MEDICAL CARE IN DIABETES-2010 DIABETES CARE, 33(SUPP 1): S1-S61,2010 ESTIMATED AVG GLUCOSE 134 mg/dL 01/09/2025 1:35 PM CDT [facility] 01/09/2025 10:0 9 AM CDT Result [facility] Clarita Grissom MD LABORATORY Final Result [facility] [address] [place] [address], [place] [phone] * (ABNORMAL) IRON SAT PANEL (IRON,IBC,%SAT) (01/09/2025 10:09 AM CDT) IRON 44(L) 50 - 170 MCG/DL 01/09/2025 2:03 PM CDT [facility] IRON BINDING CAPACITY 390 250 - 450 MCG/DL 01/09/2025 2:03 PM CDT [facility] IRON SATURATION 11(L) 20 - 55 % 2:03 PM CDT [facility] 01/09/2025 10:0 9 AM CDT Clarita Grissom MD LABORATORY Final Result [facility] [address] [place] [address], [place] [phone] * ALBUMIN URINE RANDOM W/CREATININE (01/09/2025 10:09 AM CDT) CREATININE (U) 40.0 28 - 217 MG/DL 01/09/2025 2:31 PM CDT [facility] MICROALBUMIN (U) 0.6 <2.0 mg/dL 01/10/20 25 2:31 PM CDT [facility] ALBUMIN/CREAT RATIO 15.0 <30.0 MG/G 01/09/2025 2:31 PM CDT [facility] URINE SPECIMEN / Unknown 01/09/2025 10:09 AM CDT Clarita Grissom MD URINE ORDERABLES Final Result Performing Organization Address City/[facility]/ZIP Co de Phone Number [facility] [address] [place] [address], [place] [phone] * (ABNORMAL) COMPREHENSIVE METABOLIC PANEL (01/09/2025 10:09 AM CDT) GLUCOSE 87 70 - 99 MG/DL 01/09/2025 1:22 PM CDT [facility] BUN 13 7 - 18 MG/DL 01/09/2025 1:22 PM CDT [facility] CREATININE S/P/B 0.78 0.55 - 1.02 MG/DL 01/09/2025 1:22 PM [facility] SODIUM S/P/B 143 136 - 145 MMOL/L 01/09/2025 1:22 PM [facility] POTASSIUM S/P/B 4.7 3.5 - 5.1 MMOL/L 01/09/2025 1:22 PM [facility] CHLORIDE S/P/B 103 100 - 108 MMOL/L 01/09/2025 1:22 PM [facility] CO2 28.9 21 - 32 MMOL/L 01/09/2025 1:22 PM [facility] CALCIUM S/P/B 9.9 8.5 - 10.1 MG/DL 01/09/2025 1:22 PM [facility] BILIRUBIN TOTAL S/P/B 0.4 0.2 - 1.2 MG/DL 01/09/2025 1:22 PM [facility] TOTAL PROTEIN S/P/B 7.4 6.4 - 8.2 G/DL 01/09/2025 1:22 PM [facility] ALBUMIN S/P/B 3.5 3.4 - 5.0 G/DL 01/09/2025 1:22 PM [facility] AST 47(H) 15 - 37 U/L 01/09/2025 1:22 PM [facility] ALT 34 14 - 55 U/L 01/09/2025 1:22 PM [facility] ALKALINE PHOSPHATASE S/P/B 120 50 - 136 U/L 01/09/2025 1:22 PM [facility] ANION GAP 11.1 5 - 15 MMOL/L 01/09/2025 1:22 PM [facility] BUN CREATININE RATIO 16.7 6 - 26 01/09/2025 1:22 PM CDT [facility] A/G RATIO 0.9(L) 1.0 - 2.0 RATIO 01/09/2025 1:22 PM CDT [facility] GFR ESTIMATE >90 >90 ML/MIN/1.7 3 M2 01/09/2025 1:22 PM CDT [facility] Comment: NOTE: eGFR is not calculated for patients <18 years of age. This is an estimated GFR calculation using the new CKD EPI creatinine equation without race and so does not require a correction factor for race. This estimated GFR should not be used for calculating drug doses. 01/09/2025 10:0 9 AM CDT us Clarita Grissom MD LABORATORY Final Result [facility] [address] [place] [address], [place] [phone] * (ABNORMAL) LIPID PANEL (01/09/2025 10:09 AM CDT) CHOLESTEROL 233(H) <200.0 MG/DL 01/09/2025 1:22 PM CDT [facility] TRIGLYCERIDES 170(H) <150 MG/DL 01/09/2025 1:22 PM CDT [facility] HDL 52 >40.0 MG/DL 01/09/2025 1:22 PM T [facility] LDL (CALCULATED) 147(H) <100 MG/DL 01/09/2025 1:22 PM T [facility] NON HDL CHOLESTEROL 181(H) <130 MG/DL 01/09/2025 1:22 PM T [facility] CHOL/HDL RATIO 4.5 0.0 - 4.5 01/09/2025 1:22 PM CDT [facility] VLDL CALCULATION 34 5 - 55 MG/DL 01/09/2025 1:22 PM CDT [facility] LIPID INTERPRETATION 01/09/2025 1:22 PM CDT [facility] Comment: [facility] CONCENSUS REPORT RECOMMENDATIONS: ADULT CHILD LOW RISK: CHOLESTEROL <200 <170 TRIGLYCERIDE <150 --- HDL >=60 --- LDL <100 <110 BORDERLINE: CHOLESTEROL 200-239 170-199 TRIGLYCERIDE 150-199 --- HDL 40-59 --- LDL 100-159 110-129 HIGH RISK: CHOLESTEROL >=240 >=200 TRIGLYCERIDE >=200 --- HDL <40 --- LDL >=160 >=130 01/09/2025 10:0 9 AM CDT Clarita Grissom MD LABORATORY Final Result Performing Organization Address City/State/[facility] de Phone Number [facility] [address] [facility] [place] [address], from Last 3 Months Insurance Care Teams Primary Health Care Nurse Relationship Specialty [place] [id number] [facility] [address] [address] PCP - General INTERNAL MEDICINE 11/10/24
--- OUTSIDE RECORDS SUMMARY | 2025-03-20 14:06 | XMS_ITS | Encounter Summary ---
Author Organization [facility] Address [address] [place] [address] Care Team Providers Care Sports Nutritionist Name Role Phone Lainey Maria Primary Care Provider [phone] Encounter Details Date Type Department Care Team ([facility] st Contact Info) Description 05/05/2019 Chart Note [facility] Radiation Therapy [address] [place] [address] [place] [address] [place] [phone] Social History Tobacco Use Types [...] as of this encounter Plan of Treatment Not on file documented as of this encounter Visit Diagnoses Not on filedocumented in this encounter Care Teams Sports Nutritionist Relationship Specialty Start Date End Date Lainey Maria PA PCP - General Physician Kier Operator 03/22/19 documented as of this encounter
--- OUTSIDE RECORDS SUMMARY | 2025-03-20 14:06 | XMS_ITS | Clinical Summary ---
Author Organization [facility] Address [address] [place] [address] Care Team Providers Care Preschool Substitute Teacher Name Role Phone Lainey Maria Primary Care Provider [phone] Allergies Active Allergy Reactions Criticality Noted Date [...] Repeat every 28 days. 21 Tablet 4 02/27/2025 9:10 AM CDT 5 Active Active Problems Problem Noted Date Diagnosed Date Encounter for smoking cessation counseling 10/18 Acute mastitis 09/30/2020 Abnormal magnetic resonance imaging of right jordyn ast 04/04/2019 Tobacco dependence 03/29/2019 Overview (03/29/2019): 1/2 PPD Invasive ductal carcinoma of right breast 2018 Cancer Staging:Clinical:Stage IB(cT2, cN0(sn), cM0, G2, ER+, MO+, HER2-) - Signed by Melly Arenas MD on 04/21/2019 Abnormality of right breast on screening mammogr am 03/22/2019 Elevated WBCs Encounters Date Type Department Care Team Description 03/20/2025 2:00 PM CDT Office Visit [facility] - [place] [address] [place] [address] Miguel Angel Salmon MD Arrived 03/17/2025 Telephone [facility] - [place] [address] [place] [address] Miguel Angel Salmon MD appointment without [facility] 03/15/2025 External Device Data ST[facility] ABSTRACTION Provider, Abstract 03/14/2025 External Device Data [facility] ABSTRACTION Provider, Abstract 02/28/2025 External Device Data [facility] ABSTRACTION Provider, Abstract 02/28/2025 External Device Data [facility] ABSTRACTION Provider, Abstract 02/28/2025 External Device Data [facility] ABSTRACTION Provider, Abstract 02/24/2025 Specialty Pharmacy [facility] [address] [place] [address] [place] [address] Mariluz Angel, PHARMACIST Specialty Pharmacy Clinical Assessment 02/24/2025 Specialty Pharmacy [facility] [address] [place] [phone] Mariluz Angel, PHARMACIST Specialty Pharmacy Refill Coordination 02/23/2025 Specialty Pharmacy [facility] [address] [place] [phone] Mariluz Angel, PHARMACIST Specialty Pharmacy Prior Auth Coordination 02/22/2025 Orders Only [facility] [address] [place] [address] Miguel Angel Salmon MD 02/21/2025 4:00 PM CDT Office Visit [facility] - [place] [address] [place] [address] Miguel Angel Salmon MD Chronic anemia (Primary Dx); Metastatic cancer to bone (CMS/HCC) from Last 3 Months Family History Medical [...] Sign Reading Time Taken Comments Blood Pressure 122/80 03/20/2025 1:26 PM CDT Pulse 104 03/20/2025 1:26 PM CDT Temperature 36.4 C (97.5 F) 03/20/2025 1:26 PM CDT Respiratory Rate 16 02/21/2025 3:05 PM CDT Oxygen Saturation 95% 03/20/2025 1:26 PM CDT Inhaled Oxygen Concentration - - Weight 73.9 kg (163 lb) 03/20/2025 1:26 PM CDT Height 160 cm (5' 3) 03/20/2025 1:26 PM CDT Body Mass Index 28.87 03/20/2025 1:26 PM CDT Plan of Treatment Health Maintenance [...] Flex Sig/CT Colonography Q 5 years 2015 Lung Cancer Screening 2020 ZOSTER VACCINE (1 of 2) 2020 BREAST CANCER SCREENING 01/12/2021 01/13/20 20, 03/16/2019, 02/20/2012 PAP SMEAR 01/09/2023 01/10/2020 Preventative Visit- Commercial 08/10/2024 01/10/2020 CERVICAL CANCER SCREENING 01/09/2025 HPV/Cotest (21-29) 01/09/2025 01/10/2020 HPV/Cotest (30-65) 01/09/2025 01/10/2020 INFLUENZA VACCINE (#1) 2025 DIABETES HBA1C Q 6 MONTHS 07/11/2025 01/09/2025 Medical Devices Implanted Type Area Tenant Relations Coordinator Device Identifier Shelf Expiration Date Model / Serial / Lot Hemostatic Surgicel 2x14in 1950 - [id number] Implanted:Qty: 1 on 04/13/2019 [place] [facility] [place] Breast [employer] 12/08/20191950 / / [id number] Procedures Procedure Name Priority Date/Time Associated Diagnosis Comments [facility] Routine 03/02/2025 11:30 AM CDT Metastatic cancer to bone (CMS/HCC) [facility] NORMAL BLOOD Routine 4:06 PM CDT Metastatic cancer to bone (CMS/HCC) COMPREHENSIVE METABOLIC PANEL Routine 02/21/2025 9:47 AM CDT CBC WITH DIFFERENTIAL Routine 02/21/2025 8:02 AM CDT MAMMO 3D CECY DIAGNOSTIC BILAT W OR WO CAD Routine 01/13/2020 11:12 AM CDT Abnormality of right breast on screening mammogram Invasive ductal carcinoma of right breast (CMS/HCC) Abnormal magnetic resonance imaging of right breast CERV/VAG CYTO AGE BASED SCREEN PAP Routine 01/10/2020 11:38 AM CDT Screening for cervical cancer from Last 3 Months or Most Recently Relevant to Health Maintenance Results * [facility]F (03/02/2025 11:30 AM CDT) Reason for Study To identify mutation s relevant to patient's cancer. 03/02/2025 11:30 AM CDT [facility] Genetic Diseases Assessed Cancer 03/02/2025 11:30 AM CDT [facility] Description of Ranges of DNA Sequences Examined 105 gene liquid biopsy 11:30 AM CDT [facility] Overall Interpretation positive 03/02/2025 11:30 AM CDT [facility] Portal [email or web address] 03/02/2025 11:30 AM CDT [facility] Comment:[facility] Portal link Low Coverage Regions JAK1, MSH3, SPOP, TERT 11:30 AM CDT [facility] Therapy Count 4 03/02/2025 11:30 AM CDT [facility]us: Potential Therapy 1 Gene: 8975^PIK3CA^HGNC Variant: p.[id number] Match Type: snvIndel Match Type Description: PIK3CA p.R8227H Agent: Alpelisib + Fulvestrant Drug Class: Combination (PI3K Inhibitor + Estrogen Receptor Antagonist) Tissue: Breast Cancer Association: Response Evidence Status: Consensus Evidence ID: NCCN KDB Variant: [id number] - GOF NCCN Associated Evidence: Consensus, Breast Cancer MSK Associated Evidence: MSK OncoKB, Level 1 Label: FDA On Label FDA Approved?: Yes On label?: Yes 03/02/2025 11:30 AM CDT [facility] Tempus: Potential Therapy 2 Gene: 8975^PIK3CA^HGNC Variant: p.[id number] Match Type: snvIndel Match Type Description: PIK3CA p.I0699N Agent: Capivasertib + Fulvestrant Drug Class: Combination (Lara-AKT Inhibitor + Estrogen Receptor Antagonist) Tissue: Breast Cancer Association: Response Evidence Status: Consensus Evidence ID: NCCN KDB Variant: [id number] - GOF NCCN Associated Evidence: Consensus, Breast Cancer MSK Associated Evidence: MSK OncoKB, Level 1 Label: FDA On Label FDA Approved?: Yes On label?: Yes 03/02/2025 11:30 AM CDT [facility] Tempus: Potential Therapy 3 Gene: 8975^PIK3CA^HGNC Variant: p.D6911N Match Type: snvIndel Match Type Description: PIK3CA p.D2390A Agent: Inavolisib + Fulvestrant + Palbociclib Drug Class: Combination (PI3K Inhibitor + Estrogen Receptor Antagonist + CDK4/6 Inhibitor) Tissue: Breast Cancer Association: Response Evidence Status: Consensus Evidence ID: NCCN KDB Variant: Nhbu-ag-wmecgagh NCCN Associated Evidence: Consensus, Breast Cancer MSK Associated Evidence: MSK OncoKB, Level 1 Label: FDA On Label FDA Approved?: Yes On label?: Yes 03/02/2025 11:30 AM CDT [facility]: Potential Therapy 4 Gene: 8975^PIK3CA^HGNC Variant: p.[id number] Match Type: snvIndel Match Type Description: PIK3CA p.M4375N Agent: Alpelisib Drug Class: PI3K Inhibitor Tissue: Solid Tumors Association: Response Evidence Status: Clinical research Evidence ID: [id number] Evidence URL: https://www.ncbi.nlm.n ih.gov/pubmed/49163624 Evidence Title: Phosphatidylinositol 3-Kinase -Selective Inhibition With Alpelisib (WSW269) in RJT7IU-Xoernro Solid Tumors: Results From the Tseja-uo-Umepv Study - PubMed KDB Variant: Czql-um-szygvjow Label: FDA Off Label FDA Approved?: Yes On label?: No 03/02/2025 11:30 AM CDT [facility] Trial Count 3 03/02/2025 11:30 AM CDT [facility]: Clinical Trial Match 1 Clinical Trial NCT ID: [id number] Clinical Trial Title: Feuyh-je-Tcqmj Study of Mutant-selective PI3K Inhibitor, RLY-2608, As a Single Agent in Advanced Solid Tumor Patients and in Combination with Fulvestrant in Patients with Advanced Breast Cancer Clinical Trial URL: https://clinicaltrials .gov/ct2/show/OUJ17422 432 Clinical Phase: Phase 1 Clinical Trial Matches: PIK3CA p.B2597W mutation Clinical Trial Distance and Location: [address] [place], [place] 03/02/2025 11:30 AM CDT [facility]us: Clinical Trial Match 2 Clinical Trial NCT ID: [id number] Clinical Trial Title: [id number] in Participants With Advanced Solid Tumors Clinical Trial URL: https://clinicaltrials .gov/ct2/show/WQJ60036 704 Clinical Phase: Phase 1 Clinical Trial Matches: PIK3CA p.Y6770L mutation Clinical Trial Distance and Location: [address] [place], [place] 03/02/2025 11:30 AM CDT [facility]us: Clinical Trial Match 3 Clinical Trial NCT ID: [id number] Clinical Trial Title: Mpmtt-hp-Aknzh Study of STX-478 as Monotherapy and in Combination With Other Antineoplastic Agents in Participants With Advanced Solid Tumors Clinical Trial URL: https://clinicaltrials .gov/ct2/show/QQV55978 139 Clinical Phase: Phase 1/Phase 2 Clinical Trial Matches: PIK3CA p.B1112Y mutation Clinical Trial Distance and Location: [address] [place] [address] 03/02/2025 11:30 AM CDT [facility] Tumor Mutational Aurora 4.3 m/MB 03/02/2025 11:30 AM CDT [facility] Microsatellite Instability Note MSI-High not detected 11:30 AM CDT [facility] Blood specimen (specimen) 02/23/2025 9:35 PM CDT Narrative This result has genomic variants that were not included in this document. us Miguel Angel Salmon MD MOLECULAR ORDERABLES Final Resu lt [facility] [address], [address] [place] [address], [facility] [address], [address] [place] [id number] * [facility] NORMAL BLOOD (02/21/2025 4:06 PM CDT) [facility] 02/21/2025 11:00 PM CDT [facility] Comment:See NGS Report for R esults. Blood specimen (specimen) 02/21/2025 4:06 PM CDT 02/21/2025 4:07 PM CDT us Miguel Angel Salmon MD MOLECULAR ORDERABLES Final Resu lt [facility] [address], [address] [place] [address], [facility] [address], [address] [place], [place] [address] * COMPREHENSIVE METABOLIC PANEL (02/21/2025 9:47 AM CDT) Blood us Miguel Angel Salmon MD CHEMISTRY ORDERABLES Final Resu lt * CBC WITH DIFFERENTIAL (02/21/2025 8:02 AM CDT) Blood us Miguel Angel Salmon MD HEMATOLOGY ORDERABLES Final Res ult * MAMMO DIAG BILAT 3D CECY W [...] prior right breast conservation therapy. DICTATION LOCATION: [facility] TECHNIQUE: Mediolateral oblique, mediolateral and craniocaudal views [...] FINAL ASSESSMENT: BI-RADS CATEGORY 2: Benign findings us Melly Arenas MD MAMMO ORDERABLES Final R esult * CERV/VAG CYTO AGE BASED SCREEN PAP (01/10/2020 11:38 AM CDT) COMMENT (PAP): SEE COMMENT 0 12:55 PM CDT [facility] Comment: This order for age-based cervical cancer and STI screening follows ACOG guidelines(PB 168, 140, XVK366). See individual assays for performing site location. [...] 01/13/2020 12:55 PM CDT [facility] VP PUBLISHER DEVELOPMENT: SEE COMMENT 2019 12:55 PM CDT [facility] Comment: BLG, CT(ASCP) CT screening location: [place] [address] [place] [address] EXPLANATORY NOTE SEE COMMENT 020 12:55 PM [...] was performed using the APTIMA HPV Assay ([employer] This assay detects E6/E7 viral messenger RNA (mRNA) from 14 high-risk HPV types (16,18,31,33,35,39,45,51,52,56,58,59,66,68). The analytical performance characteristics of this assay have been determined by [employer]. The modifications have not been cleared or approved by the FDA. This assay has been validated pursuant to the CLIA regulations and is used for clinical purposes. Genital SWAB OF ENDOCERVIX / Unknown Collection / Unknown 01/10/2020 11:38 AM CDT 01/10/2020 6:22 PM CDT Narrative [facility] - 01/13/2020 12:55 PM CDT Performing Organization Information: Site ID: [place] Name: [facility] Address: [address] [facility] [address] Director: Jian Park D.O., MPH Site ID: [place] [facility] Address: [address] [place] [address] Director: Usha Garza us Nickie Alegre MD PATHOLOGY/CYTOLOGY ORD ERABLES Final Result [facility] [phone] from Last 3 Months or Most Recently Relevant to Health Maintenance Insurance BCBS BLUE ACCESS/TRUE BLUE PPO RX [employer] Commercial BCBS BLUE ACCESS/TRUE BLUE PPO Care Teams Preschool Substitute Teacher Relationship Specialty Start Date End Date Lainey Maria PA PCP - General Physician Quality Analyst/Technical Writer 03/22/19
--- OUTSIDE RECORDS SUMMARY | 2025-03-20 14:06 | XMS_ITS | Encounter Summary ---
Author Organization [facility] Address [address] [place] [address] Care Team Providers Care Blanket Winder Helper Name Role Phone Lainey Maria Primary Care Provider [phone] Reason for Visit * Reason Comments Follow Up Encounter Details Date Type Department Care Team ([facility] Contact Info) Description 03/20/2025 2:00 PM CDT Office Visit [facility] Oncology and Hematology - [place] [address] [facility] [address] [place] [address] Miguel Angel Salmon MD [address] [facility] [address] [place] [address] Arrived Social History Tobacco Use Types Packs/Day Years [...] F) 03/20/2025 1:26 PM CDT Respiratory Rate - - Oxygen Saturation 95% 03/20/2025 1:26 PM CDT Inhaled Oxygen Concentration - - Weight 73.9 kg (163 lb) 03/20/2025 1:26 PM CDT Height 160 cm (5' 3) 03/20/2025 1:26 PM CDT Body Mass Index 28.87 03/20/2025 1:26 PM CDT documented in this encounter Plan of Treatment Not on file documented as of this encounter Visit Diagnoses Not on filedocumented in this encounter Care Teams Blanket Winder Helper Relationship Specialty Start Date End Date Lainey Maria PA PCP - General Physician Ent Physician 03/22/19 documented as of this encounter
--- OUTSIDE RECORDS SUMMARY | 2025-03-20 14:06 | XMS_ITS | Clinical Summary ---
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 Gender Identity Not on file Sexual Orientation Not on file Plan of Treatment Health Maintenance Due Date Last Done Comments Hepatitis C Virus (HCV) Screening 1970 TdaP Immunization 1970 Hepatitis B Immunization (1 of 3 - 19+ 3-dose series) 1989 Pap Smear 1991 Cervical Cancer Screening (CCS) 2000 HPV/Cotest 2000 Cologuard 2015 Colonoscopy 2015 Colorectal Cancer Screening 2015 Immunochemical Fecal Occult Blood 2015 Pneumococcal Immunization (5 0+ years) (1 of 1 - PCV) 2020 Zoster Immunization (1 of 2) 2020 SARS-COV-2 Immunization (1 - 2023-25 season) 2024 Influenza Immunization (#1) 2025 Respiratory Syncytial Virus (RSV) Immunization (Adult) (1 - 1-dose 75+ series) 2045 Human Papillomavirus (HPV) Immunization Aged Out No longer eligible b ased on patient's age to complete this topic Meningococcal Immunization (ACWY) Aged Out No longer eligible based on patient's age to complete this topic Rotavirus Immunization Aged Out No lo nger eligible based on patient's age to complete this topic
--- OUTSIDE RECORDS SUMMARY | 2025-03-20 14:06 | XMS_ITS | Clinical Summary ---
Author Organization [facility] Address [facility] [place] [address] Care Team Providers Care Outbound Sales Representative Name Role Phone Clarita Grissom MD Primary Care Provider [phone] Allergies Active Allergy Reactions Criticality Noted Date Comments Iodinated Contrast Media Hives High 04/13/2019 Medications omega-3 fatty acids 1,000 mg capsule Take 1,000 mg by mouth 2 (two) times a day Active ergocalciferol (DRISDOL) 8,000 unit/mL drops Take by mouth Active vitamin B complex capsule Take 1 capsule by mouth daily Active iron aspgly,ps-C-B12 -FA-Ca-suc 150-60-25-1 kt-zt-luo-mg capsule Take by mouth Active turmeric root [...] Type Department Care Team Description 02/02/2025 Telephone [facility] Gastroenterology [address] [facility] 2nd [address] [place] [address] Kirsten Noriega NP 02/01/2025 Telephone [facility] Gasteroenterology [address] [facility] 12th [place] [address] [place] [address] Kirsten Noriega NP 01/30/2025 2:08 PM CDT - 01/30/2025 11:59 PM CDT Hospital Encounter [facility] [address] [place] [address] Elevated liver function tests Discharge Disposition: Discharge to home or self care 01/30/2025 1:55 PM CDT Lab [facility] [address] [place] [address] Elevated liver function tests 01/30/2025 1:30 PM CDT Procedure visit [facility] Gastroenterology [address] [place] [address] Medical Office Building [address], [address] [place] [phone] Elevated liver function tests 01/30/2025 1:00 PM CDT Office Visit [facility] Gastroenterology [address] [place] [address] Medical [address], [address] [place] [phone] Kirsten Noriega NP Elevated liver function tests (Primary Dx); Encounter for colorectal cancer screening 01/30/2025 Results Follow-Up [facility] Gastroenterology [address] [place] [address] Medical [address], [address] [place] [address] Kirsten Noriega, JEREMIAS Liver Elastography w/o Imaging W/I&R -[facility] (All Locations), RUQ Ultrasound, Protime-INR, Additional [...] :45 PM CDT Elevated liver function tests [id number] Routine 01/30/2025 2 :45 PM CDT Elevated [...] (01/30/2025 2:45 PM CDT) PHOSPHATIDYLETHANOL Negative . [facility] Comment: ADDITIONAL INFORMATION This report is intended for use in clinical monitoring and management of patients. It is not intended for use in employment-related testing. This test was developed and its performance characteristics determined by [facility] in a manner consistent with CLIA requirements. This test has not been cleared or approved by the U.S. Food and Drug Administration. Test Performed by: [facility] [address] [place] [address] Certified Orthotist: Miryam Cornell Ph.D.; CLIA# [id number] PEth 16:0/18:1 (POPEth)by LC-MS/MS <10 Cutoff: 10 [...] by LC-MS/MS <10 Cutoff: 10 ng/mL MARV SUBRAMANIAN Comment: PEth 16:0/18:2 (PLPEth) Reference ranges are not well established Blood 01/30/2025 2:45 PM CDT 01/30/2025 3:24 PM CDT us Kirsten Noriega ELECTRONIC SPECIALIST LAB BLOOD ORDERABLES Final Result MARV FLORESCH [address] [facility]. [place] [address] Ellery ref Lab * eGFR (01/30/2025 2:45 PM [...] BLOOD ORDERABLES Final Result Performing Organization Address City/[facility]/ZIP Co de Phone Number MARV [facility] [address] [place] [place] [address]. [facility] [place] [address] * Smooth muscle antibody, qualitative (01/30/2025 2:45 PM CDT) Anti-smooth muscle Negative Negative Comment:Testing performed by : [facility], [address] [place] [address]., [address] Blood 01/30/2025 2:45 PM CDT 01/30/2025 6:30 PM CDT us Kirsten Gamboa Leann MCDOWELL LAB BLOOD ORDERABLES Final Result Performing Organization Address City/[facility] Co de Phone Number MARV BJWCH [address] [employer]. [facility] [place] [address] * Senior staff review (01/30/2025 2:45 PM CDT) Senior Staff Review Specimen Blood Comment:Testing performed by : [facility], [address] [place] [address]., [address] Senior Staff Review Review Done MARV SUBRAMANIAN Comment: Reviewed by senior staff.01/31/2025 08:59:08 CDT by marcelo christensen ([facility]). Testing performed by: [facility], [address] [place]., [address] Blood 01/30/2025 2:45 PM CDT 01/30/2025 8:33 PM CDT us Ben Lara MD LAB BLOOD ORDERABLES Edited Re sult - Final MARV FLORESWCH [address] [employer]. [place] [address] * Mitochondrial antibodies, qualitative (01/30/2025 2:45 PM CDT) Anti-mitochond rial Negative Negative Comment:Testing performed by : [facility], [address] [place]., [address] Blood 01/30/2025 2:45 PM CDT 01/30/2025 6:30 PM CDT us Kirsten Noriega NP LAB BLOOD ORDERABLES Final Result Performing Organization Address [facility] Co de Phone Number MARV FLORESWCH [address] [employer]. [place] [address] * (ABNORMAL) Iron profile w/ IBC (01/30/2025 2:45 PM CDT) Pathologist [facility] Iron 20(L) 35 - 145 mcg/dL Comment:Testing performed by : [facility], [address] [place] [address]., [address] TIBC 317 250 - 400 mcg/dL MARV SUBRAMANIAN Comment:Testing performed by : [facility], [address] [place] [address]., [address] Transferrin saturation 6(L) 20 - 50 % CERJARRED BJWTORI Comment:Testing performed by : [facility], [address] [place] [address]., [address] Blood 01/30/2025 2:45 PM CDT 01/30/2025 6:09 PM CDT Kirsten Noriega NP LAB BLOOD ORDERABLES Final Result Performing Organization Address [facility]/ZIP Co de Phone Number [facility] BJW[facility] [address] [employer]. Department of [employer] [place], [place] [id number] * (ABNORMAL) CBC with auto differential (01/30/2025 2:45 PM CDT) WBC 23.31(H) 3.80 - 9.90 K/cumm Comment:WBC corrected for NR BCs. Report corrected on 01/30/2025 17:03:06 CDT by KXS: Previously reported as 23.42. Hgb 9.9(L) 11.9 - 15.5 g/dL [facility]ERNER B[facility] Hct 32.1(L) 35.6 - 45.5 % [facility] Plt 158 150 - 400 K/cumm [facility] MPV 10.4 9.1 - 12.3 fL [facility] BJW RBC 3.19(L) 3.90 - 5.20 M/cumm [facility] B[facility] MCV 100.6(H) 81.3 - 96.4 fL [facility] WCH MCH 31.0 27.1 - 33.3 pg [facility] W MCHC 30.8(L) 32.3 - 35.7 g/dL [facility] BJW[facility] RDW CV 18.1(H) 11.1 - 14.9 % [facility] RDW SD 65.6(H) 35.7 - 48.1 fL [facility] NRBC abs 1.76(H) 0.00 - 0.01 K/cumm [facility] BJW Blood 01/30/2025 2:45 PM CDT 01/30/2025 3:24 PM CDT Kirsten Noriega NP LAB BLOOD ORDERABLES Edite d Result - Final MARV FLORESCH [address] [facility]. [place] [address] * Hepatitis C antibody Blood (01/30/2025 2:45 PM CDT) Pathologist [facility] Hep C Ab Nonreactive Nonreactive Comment: Interpretive [...] last revised on 2019. Testing performed by: [facility], [address] [place] [address]., [address] Blood 01/30/2025 2:45 PM CDT 01/30/2025 6:09 PM CDT Kirsten Noriega NP LAB MICROBIOLOGY - GENERAL ORDERABLES Final Result Performing Organization Address City/[facility]/ZIP Co de Phone Number MARV [facility] [address] [employer] [address] * (ABNORMAL) [id number]-[id number] (01/30/2025 2:45 PM CDT) alpha-1 antitrypsin 254(H) 90 - 200 mg/dL Comment:Testing performed by : [facility], [address] [place]., [address] Blood 01/30/2025 2:45 PM CDT 01/30/2025 6:30 PM CDT us Kirsten Noriega NP LAB BLOOD ORDERABLES Final Result Performing Organization Address City/[facility] Co de Phone Number MARV [facility] [address] [employer] [place] [address] * Hepatitis A antibody, IgM Blood (01/30/2025 2:45 PM CDT) Hep A IgM Nonreactive Nonreactive Comment: Interpretive Data: If Hep A IgM Ab is reported as Equivocal, a new sample should be drawn in two weeks for testing. Current interpretive data was last revised on 19. Testing performed by: [facility], [address] [place] [address]., [address] Blood 01/30/2025 2:45 PM CDT 01/30/2025 6:09 PM CDT Kirsten Noriega NP LAB MICROBIOLOGY - GENERAL ORDERABLES Final Result Performing Organization Address [facility] Co de Phone Number MARV FLORESCH [address] [place]. [facility] [place] [address] * Hepatitis A antibody, total Blood (01/30/2025 2:45 PM CDT) Pathologist [facility] Hep A total Nonreactive Nonreactive Comment:Testing performed by : [facility], [address] [place] [address]., [address] Blood 01/30/2025 2:45 PM CDT 01/30/2025 6:30 PM CDT us Kirsten Noriega NP LAB MICROBIOLOGY - GENERAL ORDERABLES Final Result Performing Organization Address [facility] de Phone Number [facility] [address] [employer]. [facility] [place] [address] * (ABNORMAL) Ceruloplasmin (01/30/2025 2:45 PM CDT) [facility] Ceruloplasmin 48.9(H) 16.0 - 45.0 mg/dL Comment:Testing performed by : [facility], [address] [place] [address]., [address] Blood 01/30/2025 2:45 PM CDT 01/30/2025 6:30 PM CDT Kirsten Noriega NP LAB BLOOD ORDERABLES Final Result Performing Organization Address [facility] de Phone Number [facility] [address] [employer]. [facility] [place] [address] * (ABNORMAL) Hepatitis B core antibody, total Blood (01/30/2025 2:45 PM CDT) [facility] Hep B core IgG/IgM Reactive( A) Nonreactive Comment:Testing performed by : [facility], [address] [facility], [place]., [address] Blood 01/30/2025 2:45 PM CDT 01/30/2025 6:30 PM CDT us Kirsten Noriega NP LAB MICROBIOLOGY - GENERAL ORDERABLES Final Result MARV [facility] [address] [facility]. [place] [address] * (ABNORMAL) Manual Differential (01/30/2025 2:45 PM CDT) [facility] Differential Manual Cells Counted 116 CERNER [facility] Neutrophil abs 13.05(H) 1.50 - 6.50 K/cumm [facility] Imm gran abs 4.66(H) 0.00 - 0.10 K/cumm [facility] Lymphocyte abs 3.26 0.80 - 3.30 K/cumm [facility] Monocyte abs 0.93(H) 0.20 - 0.80 [facility] Eosinophil abs 0.23 0.00 - 0.50 K/cumm [facility] Basophil abs 1.17(H) 0.00 - 0.10 K/cumm [facility] Neutrophil pct 56.0 % [facility] Comment: Interpretive Data Percent cell count reference ranges are not reported, since discordance with absolute values may lead to misinterpretation of CBC data. Current Interpretive Data was last revised on 2017. Lymphocyte pct 13.0 % [facility] Comment: Interpretive Data Percent cell count reference ranges are not reported, since discordance with absolute values may lead to misinterpretation of CBC data. Current Interpretive Data was last revised on 2017. Monocyte pct 4.0 % [facility] Comment: Interpretive Data Percent cell count [...] LAB BLOOD ORDERABLES Final Result MARV SUBRAMANIAN [address] [facility]. [place] [address] * Hepatitis B surface antibody (immune status) Blood (01/30/2025 2:45 PM CDT) HBsAb (immune status) Reactive Comment: This result is consistent with immunity to Hepatitis B Virus when used in the setting of routine screening. Current interpretive data was last revised on 22 Testing performed by: [facility], [address] [place]., [address] HBsAb (immune status) index 38.2 mIUnits/m L MARV SUBRAMANIAN Comment:Testing performed by : [facility], [address] [facility] [place]., [address] Blood 01/30/2025 2:45 PM CDT 01/30/2025 6:30 PM CDT Kirsten Gamboa Leann MCDOWELL LAB MICROBIOLOGY - GENERAL ORDERABLES Final Result Performing Organization Address [facility] de Phone Number MARV [facility] [address] [place] [place] [address] [facility] [place] [address] * Hepatitis B Surface Antigen Blood (01/30/2025 2:45 PM CDT) [facility] HepBsAg Nonreactive Nonreactive Comment:Testing performed by : [facility], [address] [place] [address]., [address] Blood 01/30/2025 2:45 PM CDT 01/30/2025 6:09 PM CDT Kirsten Bee Leann MCDOWELL LAB MICROBIOLOGY - GENERAL ORDERABLES Final Result Performing Organization Address [facility] Phone Number [facility] [address] [facility] [employer]. [facility] [place] [address] * Gamma GT (01/30/2025 2:45 PM CDT) [facility] GGT 33 5 - 35 Units/L Blood 01/30/2025 2:45 PM CDT 01/30/2025 3:24 PM CDT Kirsten Gamboa Leann MCDOWELL LAB BLOOD ORDERABLES Final Result Performing Organization Address [facility] de Phone Number MARV B[facility] [address] [facility] Center[facility]. [facility] [place] [address] * IgG (01/30/2025 2:45 PM CDT) [facility] Immunoglobulin G 1,000 700 - 1,600 mg/dL Comment:Testing performed by : [facility], [address] [place] [address], [place]., [address] Blood 01/30/2025 2:45 PM CDT 01/30/2025 6:09 PM CDT Kirsten Noriega NP LAB BLOOD ORDERABLES Final Result Performing Organization Address [facility]/ZIP Co de Phone Number MARV SUBRAMANIAN [address] [place] [place] [employer]. [facility] [place] [address] * (ABNORMAL) Ferritin (01/30/2025 2:45 PM CDT) Pathologist [facility] Ferritin 323(H) 13 - 150 ng/mL Comment:Testing performed by : [facility], [facility] [facility], [place]., [address] Blood 01/30/2025 2:45 PM CDT 01/30/2025 6:09 PM CDT Kirsten Noriega ELECTRONIC SPECIALIST LAB BLOOD ORDERABLES Final Result Performing Organization Address [facility] de Phone Number MARV SYCH [address] [facility] Center[facility] [employer]. [facility] [place] [address] * (ABNORMAL) Comprehensive metabolic panel (01/30/2025 2:45 PM CDT) Pathologist [facility] Sodium 140 135 - 145 mmol/L Potassium, pl 4.6 3.3 - 4.9 mmol/L [facility] Chloride 101 97 - 110 mmol/L [facility] CO2 22 22 - 32 mmol/L [facility] Anion gap 17(H) 2 - 15 mmol/L [facility] BUN 14 6 - 25 mg/dL [facility] Creatinine 0.73 0.60 - 1.10 mg/dL [facility] Glucose 85 70 - 199 mg/dL [facility] Comment: Interpretive Data Fasting glucose >/= 126 [...] BLOOD ORDERABLES Final Result Performing Organization Address [facility] [place] Number [place] [address] [facility] [place] [address] * MEDHAT ab ql w/rflx to MEDHAT [...] last revised on 2020. Testing performed by: [facility], [address] [place]., [address] Blood 01/30/2025 2:37 PM CDT 01/30/2025 6:30 PM CDT Kirsten Noriega NP LAB BLOOD ORDERABLES Final Result Performing Organization Address City/[facility] de Phone Number CERNER BJW[facility] [address] [facility] [place] [address] * Protime-INR (01/30/2025 2:37 PM CDT) PT 11.5 9.7 - 13.0 sec INR 1.06 0.90 - 1.20 MARV LFORESWCH Comment: Interpretive data Oral anticoagulant therapeutic ranges: Venous thromboembolism prophylaxis or treatment: 2.0-3.0 CARDIOLOGY Standard range: 2.0-3.0 High-intensity range: 2.5-3.5 Refer to indication-specific guidelines for appropriate target ranges for prosthetic heart valve replacement. Current interpretive data was last revised on 2019. Blood 01/30/2025 2:37 PM CDT 01/30/2025 3:24 PM CDT Kirsten Noriega NP LAB BLOOD ORDERABLES Final Result Performing Organization Address [facility] Phone Number MARV BJW[facility] [address] [facility] [place] [address] * RUQ Ultrasound (01/30/2025 2:32 PM CDT) [...] sult * Liver Elastography w/o Imaging W/I&R -[facility] (All Locations) (01/30/2025 1:48 PMCDT) Anatomical Region Laterality Modality Other us Kirsten Noriega NP GI PROCEDURE ORDERABLES Fi nal Result from Last 3 Months Insurance [place] Care Teams Outbound Sales Representative Relationship Specialty [place] [phone] [address] PCP - General Internal Medicine 12/29/24
[2025-03-20 14:18] LABS: Band Neutrophils Percent 2 % (0-6); Eosinophils Absolute Manual 1.16 K/mm3 (0.02-0.50); Eosinophils Percent Manual 4 % (0-4); Lymphocytes Absolute Manual 4.08 K/mm3 (1.1-4.5); Lymphocytes Percent Manual 14.0 % (18-44); Monocytes Absolute Manual 3.50 K/mm3 (0.1-0.90); Monocytes Percent Manual 12 % (3-9); Neutrophils Absolute Manual 20.44 K/mm3 (1.3-6.7); Neutrophils Percent Manual 68 % (46-73); Schistocytes None Seen; Total Cells Counted 100
[2025-03-20 14:19] LABS: Anisocytosis 1+
== END 2025-03-20 13:51 | disposition home or self-care (01) ==
LOC: ANHLAB 13:51
PROVIDERS: Visit Provider Internal Medicine Hematology & Oncology
DX: D64.9 Anemia, unspecified (principal)
CPT/HCPCS: 36415; 85025

== ENCOUNTER 2025-03-20 15:01 | Outpatient (CLI) | payer BC, SELFPAY ==
--- NOTE | ~2025-03-20 | XR_ITS ---
Exam: X-ray chest 2 views COMPARISON: Chest x-ray 02/02/2025 CLINICAL HISTORY: Shortness of breath. FINDINGS: There is a confluent opacity in the lower half of the right hemithorax. Differential includes a combi nation of pleural fluid with adjacent atelectasis and/or consolidation. An underlying mass is possibl e. Recommend follow-up to resolution. Consider a chest CT for further assessment. Small patchy opacities in the right upper lung. Small patchy opacities in the mid and lower left lung similar to the study from 02/02/2025. No pneumothorax. No free air under the diaphragm. Stable calcified granuloma in the left hilar region . IMPRESSION: 1.There is a confluent opacity in the lower half of the right hemithorax. Differential includes a com bination of pleural fluid with adjacent atelectasis and/or consolidation. An underlying mass is possi ble. Recommend follow-up to resolution. Consider a chest CT for further assessment. 2.Small patchy opacities in the right upper lung. Follow-up is recommended. 3.Small patchy opacities in the mid and lower left lung similar to the study from 02/02/2025. Follow-u p is recommended. Reviewed, dictated and finalized at location A. IMPRESSION: 1.There is a confluent opacity in the lower half of the right hemithorax. Diffe rential includes a combination of pleural fluid with adjacent atelectasis and/o r consolidation. An underlying mass is possible. Recommend follow-up to resolut ion. Consider a chest CT for further assessment. 2.Small patchy opacities in the right upper lung. Follow-up is recommended. 3.Small patchy opacities in the mid and lower left lung similar to the study fr om 02/02/2025. Follow-up is recommended.
--- OUTSIDE RECORDS SUMMARY | 2025-03-20 15:13 | XMS_ITS | Clinical Summary ---
Author Organization [facility] Address [facility] [place] [address] Care Team Providers Care Technology Architect Name Role Phone Clarita Grissom MD Primary Care Provider [phone] Allergies Active Allergy Reactions Criticality Noted Date Comments Iodinated Contrast Media Hives High 04/13/2019 Medications omega-3 fatty acids 1,000 mg capsule Take 1,000 mg by mouth 2 (two) times a day Active ergocalciferol (DRISDOL) 8,000 unit/mL drops Take by mouth Active vitamin B complex capsule Take 1 capsule by mouth daily Active iron aspgly,ps-C-B12 -FA-Ca-suc 150-60-25-1 zc-pi-qoe-mg capsule Take by mouth Active turmeric root [...] Type Department Care Team Description 02/02/2025 Telephone [facility] Gastroenterology [address] 2nd [address] [place] [address] Kirsten Noriega NP 02/01/2025 Telephone [facility] Gasteroenterology [address] 12th [place] [address] [place] [address] Kirsten Noriega NP 01/30/2025 2:08 PM CDT - 01/30/2025 11:59 PM CDT Hospital Encounter [facility] [address] [place] [address] Elevated liver function tests Discharge Disposition: Discharge to home or self care 01/30/2025 1:55 PM CDT Lab [facility] [address] [place] [address] Elevated liver function tests 01/30/2025 1:30 PM CDT Procedure visit [facility] Gastroenterology [address] [place] [address] Medical Office Building [address], [address] [place] [phone] Elevated liver function tests 01/30/2025 1:00 PM CDT Office Visit [facility] Gastroenterology [address] [place] [address] Medical Office Building [address], [address] [place] [phone] Kirsten Noriega NP Elevated liver function tests (Primary Dx); Encounter for colorectal cancer screening 01/30/2025 Results Follow-Up [facility] Gastroenterology [address] [place] [address] Medical Office Building [address], [address] [place] [address] Kirsten Noriega, JEREMIAS Liver Elastography w/o Imaging W/I&R -[facility] (All Locations), RUQ Ultrasound, Protime-INR, Additional [...] :45 PM CDT Elevated liver function tests [id number] Routine 01/30/2025 2 :45 PM CDT Elevated [...] (01/30/2025 2:45 PM CDT) PHOSPHATIDYLETHANOL Negative . [facility] Lab Comment: ADDITIONAL INFORMATION This report is intended for use in clinical monitoring and management of patients. It is not intended for use in employment-related testing. This test was developed and its performance characteristics determined by [facility] in a manner consistent with CLIA requirements. This test has not been cleared or approved by the U.S. Food and Drug Administration. Test Performed by: [facility] [address] [place] [address] Intensivist: Miryam Cornell Ph.D.; CLIA# [id number] PEth 16:0/18:1 (POPEth)by LC-MS/MS <10 Cutoff: 10 [...] 01/30/2025 3:24 PM CDT us Kirsten Noriega DIABETES EDUCATION COORDINATOR LAB BLOOD ORDERABLES Final Result MARV FLORESCH [address] [facility]. Department [place] [address] [place] ref Lab * eGFR (01/30/2025 2:45 PM [...] BLOOD ORDERABLES Final Result Performing Organization Address City/[facility]/ZIP Co de Phone Number [facility]V [facility] [address] [facility] [place] [address] * Smooth muscle antibody, qualitative (01/30/2025 2:45 PM CDT) Anti-smooth muscle Negative Negative Comment:Testing performed by : [facility], [address] [place] [address]., [address] Blood 01/30/2025 2:45 PM CDT 01/30/2025 6:30 PM CDT us Kirsten Gamboa Leann MCDOWELL LAB BLOOD ORDERABLES Final Result Performing Organization Address City/[facility] Co de Phone Number MARV BJW[facility] [address] [facility] [place] [address] * Senior staff review (01/30/2025 2:45 PM CDT) Senior Staff Review Specimen Blood Comment:Testing performed by : [facility], [address] [place] [address]., [address] Senior Staff Review Review Done MARV SUBRAMANIAN Comment: Reviewed by senior staff.01/31/2025 08:59:08 CDT by marcelo christensen ([facility]). Testing performed by: [facility], [address] [place]., [address] Blood 01/30/2025 2:45 PM CDT 01/30/2025 8:33 PM CDT us Ben Lara MD LAB BLOOD ORDERABLES Edited Re sult - Final MARV FLORESW[facility] [address] [place] [address] * Mitochondrial antibodies, qualitative (01/30/2025 2:45 PM CDT) Anti-mitochond rial Negative Negative Comment:Testing performed by : [facility], [address] [place]., [address] Blood 01/30/2025 2:45 PM CDT 01/30/2025 6:30 PM CDT us Kirsten Noriega NP LAB BLOOD ORDERABLES Final Result Performing Organization Address [facility] Co de Phone Number MARV FLORESWCH [address] [place] [address] * (ABNORMAL) Iron profile w/ IBC (01/30/2025 2:45 PM CDT) Pathologist [facility] Iron 20(L) 35 - 145 mcg/dL Comment:Testing performed by : [facility], [address] [place] [address]., [address] TIBC 317 250 - 400 mcg/dL MARV SUBRAMANIAN Comment:Testing performed by : [facility], [address] [place] [address]., [address] Transferrin saturation 6(L) 20 - 50 % CERJARRED BJWTORI Comment:Testing performed by : [facility], [address] [place] [address]., [address] Blood 01/30/2025 2:45 PM CDT 01/30/2025 6:09 PM CDT Kirsten Noriega NP LAB BLOOD ORDERABLES Final Result Performing Organization Address [facility]/ZIP Co de Phone Number [facility] BJW[facility] [address] [address] Department of [employer] [place], [place] [id number] * (ABNORMAL) CBC with auto differential (01/30/2025 2:45 PM CDT) WBC 23.31(H) 3.80 - 9.90 K/cumm Comment:WBC corrected for NR BCs. Report corrected on 01/30/2025 17:03:06 CDT by KXS: Previously reported as 23.42. Hgb 9.9(L) 11.9 - 15.5 g/dL CERNER BJW[facility] Hct 32.1(L) 35.6 - 45.5 % [facility] Plt 158 150 - 400 K/cumm CERNER BJW[facility] MPV 10.4 9.1 - 12.3 fL [facility] RBC 3.19(L) 3.90 - 5.20 M/cumm [facility] MCV 100.6(H) 81.3 - 96.4 fL [facility] WCH MCH 31.0 27.1 - 33.3 pg [facility] W MCHC 30.8(L) 32.3 - 35.7 g/dL [facility] RDW CV 18.1(H) 11.1 - 14.9 % [facility] RDW SD 65.6(H) 35.7 - 48.1 fL [facility] NRBC abs 1.76(H) 0.00 - 0.01 K/cumm [facility]JW Blood 01/30/2025 2:45 PM CDT 01/30/2025 3:24 PM CDT Kirsten Noriega NP LAB BLOOD ORDERABLES Edite d Result - Final MARV FLORESCH [address] [facility]. [place] [address] * Hepatitis C antibody Blood (01/30/2025 2:45 PM CDT) Pathologist [facility] Hep C Ab Nonreactive Nonreactive Comment: Interpretive [...] last revised on 2019. Testing performed by: [facility], [address] [place] [address]., [address] Blood 01/30/2025 2:45 PM CDT 01/30/2025 6:09 PM CDT Kirsten Noriega NP LAB MICROBIOLOGY - GENERAL ORDERABLES Final Result Performing Organization Address City/[facility]/ZIP Co de Phone Number [facility] [address] [address] [place] [address] * (ABNORMAL) Yayjg-0-gkrxembtlif (01/30/2025 2:45 PM CDT) alpha-1 antitrypsin 254(H) 90 - 200 mg/dL Comment:Testing performed by : [facility], [address] [place]., [address] Blood 01/30/2025 2:45 PM CDT 01/30/2025 6:30 PM CDT us Kirsten Noriega NP LAB BLOOD ORDERABLES Final Result Performing Organization Address City/[facility] Co de Phone Number [facility]V [facility] [address] [address] [address] * Hepatitis A antibody, IgM Blood (01/30/2025 2:45 PM CDT) Hep A IgM Nonreactive Nonreactive Comment: Interpretive Data: If Hep A IgM Ab is reported as Equivocal, a new sample should be drawn in two weeks for testing. Current interpretive data was last revised on 19. Testing performed by: [facility], [address] [place] [address]., [address] Blood 01/30/2025 2:45 PM CDT 01/30/2025 6:09 PM CDT Kirsten Noriega NP LAB MICROBIOLOGY - GENERAL ORDERABLES Final Result Performing Organization Address [facility] Co de Phone Number MARV FLORESCH [address] [address] [facility] [place] [address] * Hepatitis A antibody, total Blood (01/30/2025 2:45 PM CDT) Pathologist [facility] Hep A total Nonreactive Nonreactive Comment:Testing performed by : [facility], [address] [place] [address]., [address] Blood 01/30/2025 2:45 PM CDT 01/30/2025 6:30 PM CDT us Kirsten Noriega NP LAB MICROBIOLOGY - GENERAL ORDERABLES Final Result Performing Organization Address [facility] de Phone Number [facility] [address] [facility] [place] [address] * (ABNORMAL) Ceruloplasmin (01/30/2025 2:45 PM CDT) [facility] Ceruloplasmin 48.9(H) 16.0 - 45.0 mg/dL Comment:Testing performed by : [facility], [address] [place] [address]., [address] Blood 01/30/2025 2:45 PM CDT 01/30/2025 6:30 PM CDT Kirsten Noriega NP LAB BLOOD ORDERABLES Final Result Performing Organization Address [facility] de Phone Number [facility] [address] [facility] [place] [address] * (ABNORMAL) Hepatitis B core antibody, total Blood (01/30/2025 2:45 PM CDT) [facility] Hep B core IgG/IgM Reactive( A) Nonreactive Comment:Testing performed by : [facility], [address] [facility], [place]., [address] Blood 01/30/2025 2:45 PM CDT 01/30/2025 6:30 PM CDT us Kirsten Noriega NP LAB MICROBIOLOGY - GENERAL ORDERABLES Final Result [facility] [address] [facility]. Department [place] [address] * (ABNORMAL) Manual Differential (01/30/2025 2:45 PM CDT) [facility] Differential Manual Cells Counted 116 [facility] Neutrophil abs 13.05(H) 1.50 - 6.50 K/cumm [facility] Imm gran abs 4.66(H) 0.00 - 0.10 K/cumm [facility] Lymphocyte abs 3.26 0.80 - 3.30 K/cumm [facility] Monocyte abs 0.93(H) 0.20 - 0.80 K/cumm [facility] Eosinophil abs 0.23 0.00 - 0.50 K/cumm [facility] Basophil abs 1.17(H) 0.00 - 0.10 K/cumm [facility] Neutrophil pct 56.0 % [facility] Comment: Interpretive Data Percent cell count reference ranges are not reported, since discordance with absolute values may lead to misinterpretation of CBC data. Current Interpretive Data was last revised on 2017. Lymphocyte pct 13.0 % [facility] Comment: Interpretive Data Percent cell count reference ranges are not reported, since discordance with absolute values may lead to misinterpretation of CBC data. Current Interpretive Data was last revised on 2017. Monocyte pct 4.0 % [facility] Comment: Interpretive Data Percent cell count [...] LAB BLOOD ORDERABLES Final Result MARV SUBRAMANIAN [address] [facility]. [place] [address] * Hepatitis B surface antibody (immune status) Blood (01/30/2025 2:45 PM CDT) HBsAb (immune status) Reactive Comment: This result is consistent with immunity to Hepatitis B Virus when used in the setting of routine screening. Current interpretive data was last revised on 22 Testing performed by: [facility], [address] [place] [address] HBsAb (immune status) index 38.2 mIUnits/m L MARV SUBRAMANIAN Comment:Testing performed by : [facility], [address] [place] [address] Blood 01/30/2025 2:45 PM CDT 01/30/2025 6:30 PM CDT Kirsten Gamboa Leann MCDOWELL LAB MICROBIOLOGY - GENERAL ORDERABLES Final Result Performing Organization Address [facility] de Phone Number MARV [facility] [address] [address] [facility] [place] [address] * Hepatitis B Surface Antigen Blood (01/30/2025 2:45 PM CDT) [facility] HepBsAg Nonreactive Nonreactive Comment:Testing performed by : [facility], [address] [place] [address]., [address] Blood 01/30/2025 2:45 PM CDT 01/30/2025 6:09 PM CDT Kirsten Bee Leann MCDOWELL LAB MICROBIOLOGY - GENERAL ORDERABLES Final Result Performing Organization Address [facility] Phone Number [facility] [address] [facility] [address] [facility] [place] [address] * Gamma GT (01/30/2025 2:45 PM CDT) [facility] GGT 33 5 - 35 Units/L Blood 01/30/2025 2:45 PM CDT 01/30/2025 3:24 PM CDT Kirsten Gamboa Leann MCDOWELL LAB BLOOD ORDERABLES Final Result Performing Organization Address [facility] de Phone Number MARV BJW[facility] [address] [facility] [place] [address] * IgG (01/30/2025 2:45 PM CDT) [facility] Immunoglobulin G 1,000 700 - 1,600 mg/dL Comment:Testing performed by : [facility], [address] [place] [address], [place]., [address] Blood 01/30/2025 2:45 PM CDT 01/30/2025 6:09 PM CDT Kirsten Noriega NP LAB BLOOD ORDERABLES Final Result Performing Organization Address [facility]/ZIP Co de Phone Number MARV SUBRAMANIAN [address] [facility] [place] [address] * (ABNORMAL) Ferritin (01/30/2025 2:45 PM CDT) Pathologist [facility] Ferritin 323(H) 13 - 150 ng/mL Comment:Testing performed by : [facility], [facility] [facility], [place]., [address] Blood 01/30/2025 2:45 PM CDT 01/30/2025 6:09 PM CDT Kirsten Noriega DIABETES EDUCATION COORDINATOR LAB BLOOD ORDERABLES Final Result Performing Organization Address [facility] de Phone Number MARV SYCH [address] [facility] [place] [address] * (ABNORMAL) Comprehensive metabolic panel (01/30/2025 2:45 PM CDT) Pathologist [facility] Sodium 140 135 - 145 mmol/L Potassium, pl 4.6 3.3 - 4.9 mmol/L [facility] Chloride 101 97 - 110 mmol/L [facility] CO2 22 22 - 32 mmol/L [facility] Anion gap 17(H) 2 - 15 mmol/L [facility] BUN 14 6 - 25 mg/dL [facility] Creatinine 0.73 0.60 - 1.10 mg/dL [facility] Glucose 85 70 - 199 mg/dL [facility] Comment: Interpretive Data Fasting glucose >/= 126 [...] PM CDT 01/30/2025 3:24 PM CDT us Kirsetn Noriega NP LAB BLOOD ORDERABLES Final Result Performing Organization Address [facility] [place] Number [place] [address] [facility] [place] [address] * MEDHAT ab ql w/rflx to MEDHAT [...] last revised on 2020. Testing performed by: [facility], [address] [place]., [address] Blood 01/30/2025 2:37 PM CDT 01/30/2025 6:30 PM CDT Kirsten Noriega NP LAB BLOOD ORDERABLES Final Result Performing Organization Address City/[facility] de Phone Number CERNER BJW[facility] [address] [facility] [place] [address] * Protime-INR (01/30/2025 2:37 PM CDT) PT [...] BLOOD ORDERABLES Final Result Performing Organization Address [facility] Phone Number MARV BJW[facility] [address] [facility] [place] [address] * RUQ Ultrasound (01/30/2025 2:32 PM CDT) [...] agrees with it. Electronically signed by: Colby Plamer M.D. Narrative 01/30/2025 4:32 PM CDT EXAMINATION: [...] sult * Liver Elastography w/o Imaging W/I&R -[facility] (All Locations) (01/30/2025 1:48 PMCDT) Anatomical Region Laterality Modality Other us Kirsten Noriega NP GI PROCEDURE ORDERABLES Fi nal Result from Last 3 Months Insurance [place] Care Teams Technology Architect Relationship Specialty Start [place] [address] [address] PCP - General Internal Medicine 12/29/24
--- OUTSIDE RECORDS SUMMARY | 2025-03-20 15:13 | XMS_ITS | Clinical Summary ---
Author Organization [facility] Address [address] [place] [address] Care Team Providers Care Tie Fastener Name Role Phone Lainey Maria Primary Care Provider [phone] Allergies Active Allergy Reactions Criticality Noted Date [...] 4 02/27/2025 9:10 AM CDT 5 Active clindamycin HCL (CLEOCIN) 300 mg Capsule Take 1 Capsule (300 mg) by mouth 4 times daily for 7 days. 28 Capsule 5 03/27/20 25 Active Active Problems Problem Noted Date Diagnosed Date Encounter for smoking cessation counseling 10/18 Acute mastitis 09/30/2020 Abnormal magnetic resonance imaging of right jordyn ast 04/04/2019 Tobacco dependence 03/29/2019 Overview (03/29/2019): 1/2 PPD Invasive ductal carcinoma of right breast 2018 Cancer Staging:Clinical:Stage IB(cT2, cN0(sn), cM0, G2, ER+, IA+, HER2-) - Signed by Melly Arenas MD on 04/21/2019 Abnormality of right breast on screening mammogr am 03/22/2019 Elevated WBCs Encounters Date Type Department Care Team Description 03/20/2025 2:00 PM CDT Office Visit [facility] Oncology and [facility] [address] [place] [phone] Miguel Angel Salmon MD Shortness of breath (Primary Dx); Chronic anemia 03/17/2025 Telephone [facility] Oncology and [facility] [address] [place] [address] Miguel Angel Salmon MD appointment without [facility] 03/15/2025 External Device Data ST[facility] ABSTRACTION Provider, Abstract 03/14/2025 External Device Data [facility] ABSTRACTION Provider, Abstract 02/28/2025 External Device Data [facility] ABSTRACTION Provider, Abstract 02/28/2025 External Device Data [facility] ABSTRACTION Provider, Abstract 02/28/2025 External Device Data ST[facility] ABSTRACTION Provider, Abstract 02/24/2025 Specialty Pharmacy [facility] [address] [place] [address] [place] [address] Mariluz Angel, PHARMACIST Specialty Pharmacy Clinical Assessment 02/24/2025 Specialty Pharmacy [facility] [address] [place] [phone] Mariluz Angel, PHARMACIST Specialty Pharmacy Refill Coordination 02/23/2025 Specialty Pharmacy [facility] [address] [place] [phone] Mariluz Angel, PHARMACIST Specialty Pharmacy Prior Auth Coordination 02/22/2025 Orders Only [facility] Oncology [facility] [address] [place] [phone] Miguel Angel Salmon MD 02/21/2025 4:00 PM CDT Office Visit [facility] Oncology [facility] [address] [place] [phone] Miguel Angel Salmon MD Chronic anemia (Primary [...] 03/20/2025 1:26 PM CDT Plan of Treatment Upcoming Encounters Date Type Department Care Team (Late st Contact Info) Description 04/24/2025 11:30 AM CDT Office Visit [facility] Oncology and Hematology - [place] [address] [facility] [address] [place] [address] Miguel Angel Salmon MD [address] [facility] [place] [address] Health Maintenance Due Date Last [...] 07/11/2025 01/09/2025 Medical Devices Implanted Type Area Exercise Rider Device Identifier Shelf Expiration Date Model / Serial / Lot Hemostatic Surgicel 2x14in 1950 - [id number] Implanted:Qty: 1 on 04/13/2019 by Melly Arenas [place] [facility]: Breast [employer] 12/08/20191950 / / [id number] Procedures Procedure Name Priority Date/Time Associated Diagnosis [...] CDT [facility] Portal [email or web address] 03/02/2025 11:30 AM CDT [facility] Comment:[facility] Portal link Low Coverage Regions JAK1, MSH3, SPOP, TERT 11:30 AM CDT [facility] Therapy Count 4 03/02/2025 11:30 AM CDT [facility]: Potential Therapy 1 Gene: 8975^PIK3CA^HGNC Variant: [id number] Match Type: snvIndel Match Type Description: PIK3CA p.H5555V Agent: Alpelisib + Fulvestrant Drug Class: Combination (PI3K Inhibitor + Estrogen Receptor Antagonist) Tissue: Breast Cancer Association: Response Evidence Status: Consensus Evidence ID: NCCN KDB Variant: [id number] - GOF NCCN Associated Evidence: Consensus, Breast Cancer MSK Associated Evidence: MSK OncoKB, Level 1 Label: FDA On Label FDA Approved?: Yes On label?: Yes 03/02/2025 11:30 AM CDT [facility]: Potential Therapy 2 Gene: 8975^PIK3CA^HGNC Variant: p.[id number] Match Type: snvIndel Match Type Description: PIK3CA p.W5151X Agent: Capivasertib + Fulvestrant Drug Class: Combination (Lara-AKT Inhibitor + Estrogen Receptor Antagonist) Tissue: Breast Cancer Association: Response Evidence Status: Consensus Evidence ID: NCCN KDB Variant: [id number] - GOF NCCN Associated Evidence: Consensus, Breast Cancer MSK Associated Evidence: MSK OncoKB, Level 1 Label: FDA On Label FDA Approved?: Yes On label?: Yes 03/02/2025 11:30 AM CDT [facility]: Potential Therapy 3 Gene: 8975^PIK3CA^HGNC Variant: p.[id number] Match Type: snvIndel Match Type Description: PIK3CA p.J0904V Agent: Inavolisib + Fulvestrant + Palbociclib Drug Class: Combination (PI3K Inhibitor + Estrogen Receptor Antagonist + CDK4/6 Inhibitor) Tissue: Breast Cancer Association: Response Evidence Status: Consensus Evidence ID: NCCN KDB Variant: Mgqq-cr-ryxfalgl NCCN Associated Evidence: Consensus, Breast Cancer MSK Associated Evidence: MSK OncoKB, Level 1 Label: FDA On Label FDA Approved?: Yes On label?: Yes 03/02/2025 11:30 AM CDT [facility]: Potential Therapy 4 Gene: 8975^PIK3CA^HGNC Variant: p.[id number] Match Type: snvIndel Match Type Description: PIK3CA p.J7456S Agent: Alpelisib Drug Class: PI3K Inhibitor Tissue: Solid Tumors Association: Response Evidence Status: Clinical research Evidence ID: [id number] Evidence URL: https://www.ncbi.nlm.n ih.gov/pubmed/94090501 Evidence Title: Phosphatidylinositol 3-Kinase -Selective Inhibition With Alpelisib (URN740) in ZBS9IK-Vhylpso Solid Tumors: Results From the Nvmex-zo-Rkste Study - PubMed KDB Variant: [id number] Label: FDA Off Label FDA Approved?: Yes On label?: No 03/02/2025 11:30 AM CDT [facility] Trial Count 3 03/02/2025 11:30 AM CDT [facility]: Clinical Trial Match 1 Clinical Trial NCT ID: [id number] Clinical Trial Title: Ssxvc-rf-Fgxbt Study of Mutant-selective PI3K Inhibitor, RLY-2608, As a Single Agent in Advanced Solid Tumor Patients and in Combination with Fulvestrant in Patients with Advanced Breast Cancer Clinical Trial URL: https://clinicaltrials .gov/ct2/show/IET25515 432 Clinical Phase: Phase 1 Clinical Trial Matches: PIK3CA p.A0693Q mutation Clinical Trial Distance and Location: [address] [place], [place] 03/02/2025 11:30 AM CDT [facility]: Clinical Trial Match 2 Clinical Trial NCT ID: [id number] Clinical Trial Title: [id number] in Participants With Advanced Solid Tumors Clinical Trial URL: https://clinicaltrials .gov/ct2/show/EER36695 704 Clinical Phase: Phase 1 Clinical Trial Matches: PIK3CA p.H9580B mutation Clinical Trial Distance and Location: [address], [place] 03/02/2025 11:30 AM CDT [facility]: Clinical Trial Match 3 Clinical Trial NCT ID: [id number] Clinical Trial Title: Tvmtp-dl-Pegaf Study of STX-478 as Monotherapy and in Combination With Other Antineoplastic Agents in Participants With Advanced Solid Tumors Clinical Trial URL: https://clinicaltrials .gov/ct2/show/BCW97674 139 Clinical Phase: Phase 1/Phase 2 Clinical Trial Matches: PIK3CA p.B2673T mutation Clinical Trial Distance and Location: [address] [place], [place] 03/02/2025 11:30 AM CDT [facility] Tumor Mutational [place] 4.3 m/MB 03/02/2025 11:30 AM CDT [facility] Microsatellite Instability Note MSI-High not detected 11:30 AM CDT [facility] Blood specimen (specimen) 02/23/2025 9:35 PM CDT Narrative This result has genomic variants that were not included in this document. us Miguel Angel Salmon MD MOLECULAR ORDERABLES Final Resu lt [facility] [address], [address] [place] [address], [facility] [address] [facility], [address] [place] [address] * [facility] NORMAL BLOOD (02/21/2025 4:06 PM CDT) Pathologist [facility] 02/21/2025 11:00 PM CDT [facility] Comment:See NGS Report for R esults. Blood specimen (specimen) 02/21/2025 4:06 PM CDT 02/21/2025 4:07 PM CDT us Miguel Angel Salmon MD MOLECULAR ORDERABLES Final Resu lt [facility] [address], [address] [place] [address], [facility] [address] [place] [address] * COMPREHENSIVE METABOLIC PANEL (02/21/2025 9:47 AM [...] prior right breast conservation therapy. DICTATION LOCATION: [facility] TECHNIQUE: Mediolateral oblique, mediolateral and craniocaudal views [...] prior right breast conservation therapy. DICTATION LOCATION: [facility] TECHNIQUE: Mediolateral oblique, mediolateral and craniocaudal views [...] STI screening follows ACOG guidelines(PB 168, 140, DZW131). See individual assays for performing site location. [...] 01/13/2020 12:55 PM CDT [facility] STRIP CLEANER: SEE COMMENT 2019 12:55 PM CDT [facility] Comment: BLG, CT(ASCP) CT screening location: [place] [address] [place] [address] EXPLANATORY NOTE SEE COMMENT 020 12:55 PM [...] was performed using the APTIMA HPV Assay ([employer] This assay detects E6/E7 viral messenger RNA (mRNA) from 14 high-risk HPV types (16,18,31,33,35,39,45,51,52,56,58,59,66,68). The analytical performance characteristics of this assay have been determined by [employer]. The modifications have not been cleared or approved by the FDA. This assay has been validated pursuant to the CLIA regulations and is used for clinical purposes. Genital SWAB OF ENDOCERVIX / Unknown Collection / Unknown 01/10/2020 11:38 AM CDT 01/10/2020 6:22 PM CDT Narrative [facility] - 01/13/2020 12:55 PM CDT Performing Organization Information: Site ID: [id number] Name: [facility] Address: [address] [place] [address] Director: Jian Park D.O., MPH Site ID: [place] [facility] Address: [address] [place] [address] Director: Usha Garza us Nickie Alegre MD PATHOLOGY/CYTOLOGY ORD ERABLES Final Result [facility] [phone] from Last 3 Months or Most Recently Relevant to Health Maintenance Insurance BCBS BLUE ACCESS/TRUE BLUE PPO RX [employer] Commercial BCBS BLUE ACCESS/TRUE BLUE PPO Care Teams Tie Fastener Relationship Specialty Start Date End Date Lainey Maria PA PCP - General Physician Chief Marketing Officer 03/22/19
--- OUTSIDE RECORDS SUMMARY | 2025-03-20 15:13 | XMS_ITS | Clinical Summary ---
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
--- OUTSIDE RECORDS SUMMARY | 2025-03-20 15:13 | XMS_ITS | Clinical Summary ---
Author Organization [facility] Address [address] [place] [address] Care Team Providers Care Galvanizing Pot Runner Name Role Phone Clarita Grissom MD Primary Care Provider [phone] Allergies Active Allergy Reactions Criticality Noted Date Comments Iodinated Contrast Media Hives High 04/13/2019 Medications aspirin 81 MG chewable tablet Chew 1 tablet (81 mg total) by mouth daily. Active metFORMIN ER (GLUCOPHAGE-XR) 500 MG 24 hr tabletIndications: Type 2 diabetes mellitus without complication, without long-term current use of insulin ([facility]/HCC HHS/[facility]) Take 1 tablet (500 mg total) [...] ng multiple sites with positive rheumatoid factor ([facility]/HCC HHS/HCC) 11/14/2024 Assessment & Plan (01/09/2025 5:19 PM CDT): -pt was seen by hydraulic strainer operator and rxed with steroid /pt was referred to see president ceo & founder for hep B per pt before starting MTX -pt to f/u with hydraulic strainer operator Assessment & Plan (11/15/2024 12:57 PM CDT): [...] complication, without long-term current use of insulin ([facility]CC HHS/[facility]) 11/08/2024 Assessment & Plan (01/09/2025 5:19 [...] ductal carcinoma of right breast (CMS/H CC [facility]) 03/25/2019 Assessment & Plan (01/09/2025 5:19 [...] Group Image (SCAN); CT (SCAN) 02/01/2025 Telephone [facility] Family & Internal [address] [phone] Clarita Grissom MD Information 01/30/2025 Scan [facility] SRVCS Scanned, [facility] (SCAN) 01/10/2025 Results Follow-Up [facility] Family & Internal [address] [phone] Clarita Grissom MD IRON SAT PANEL (IRON,IBC,%SAT), HEMOGLOBIN, GLYCOSYLATED, ALBUMIN URINE RANDOM W/CREATININE, Additional followed-up results: 2 01/09/2025 12:47 PM CDT - 01/09/2025 11:59 PM CDT Hospital Encounter [facility] [address] [place] [address] Clairta Grissom MD Discharge Disposition: Home or Self Care (Routine Discharge) 01/09/2025 10:10 AM CDT Laboratory Only [facility] & Internal [address] [address] Clarita Grissom MD 01/09/2025 9:00 AM CDT Office Visit [facility] Family & Internal [address] [address] Clarita Grissom MD Follow Up (3 wk [...] Description 04/03/2025 7:00 AM CDT Office Visit [facility] Family & Internal Medicine - [address] [address] Clarita Grissom MD [address] [place] [address] [place] [address] Health Maintenance Due Date Last Done Comments [...] 01/09/2025 Lipid Panel 01/09/2026 01/09/2025 PHQ-2 (Physician Ely Shoshone) Completed 11/08/2024 Meningococcal B Vaccine Aged Out [...] complication, without long-term current use of insulin ([facility]) Other hyperlipidemia Anemia in other chronic diseases classified elsewhere COMPREHENSIVE METABOLIC PANEL Routine 01/09/2025 10:09 AM CDT Type 2 diabetes mellitus without complication, without long-term current use of insulin ([facility]) LIPID PANEL Routine 01/09/2025 10:09 AM CDT Other hyperlipidemia ALBUMIN URINE RANDOM W/CREATININE Routine 01/09/2025 10:09 AM CDT Type 2 diabetes mellitus without complication, without long-term current use of insulin ([facility]) HEMOGLOBIN, GLYCOSYLATED Routine 01/09/2025 10:09 AM CDT Type 2 diabetes mellitus without complication, without long-term current use of insulin ([facility]) IRON SAT PANEL (IRON,IBC,%SAT) Routine 01/09/2025 10:09 AM CDT Anemia in other chronic diseases classified elsewhere from Last 3 Months Results * CT GENERIC (02/04/2025) Only the most recent of2 resultswithin the time period is included. Anatomical Region Laterality Modality Other 02/04/2025 [employer] [facility] Scanned SCANNING Final Resu lt * IMAGE GENERIC (02/02/2025) Only the most recent of6 resultswithin the time period is included. Anatomical Region Laterality Modality Other 02/02/2025 [facility] Scanned SCANNING Final Resu lt * OUTSIDE PT/INR (SCAN ORDER) (01/30/2025) 01/30/2025 [facility] Scanned SCANNING Final Resu lt * OUTSIDE LAB (SCAN ORDER) (01/30/2025) Only the most recent of17 resultswithin the time period is included. 01/30/2025 [facility] Scanned SCANNING Final Resu lt * (ABNORMAL) HEMOGLOBIN, GLYCOSYLATED (01/09/2025 10:09 AM CDT) HGB A1C 6.3(H) <5.7 % 01/09/2025 1:35 PM CDT [facility] Comment: INCREASED RISK OF DIABETES <5.7% NON-DIABETES 5.7-6.4% INCREASED RISK FOR FUTURE DIABETES > OR = 6.5 CONSISTENT WITH DIABETES STANDARDS OF MEDICAL CARE IN DIABETES-2010 DIABETES CARE, 33(SUPP 1): S1-S61,2010 ESTIMATED AVG GLUCOSE 134 mg/dL 01/09/2025 1:35 PM CDT [facility] 01/09/2025 10:0 9 AM CDT Result [facility] Clarita Grissom MD LABORATORY Final Result [facility] [address] [place] [address], [place] [phone] * (ABNORMAL) IRON SAT PANEL (IRON,IBC,%SAT) (01/09/2025 10:09 AM CDT) IRON 44(L) 50 - 170 MCG/DL 01/09/2025 2:03 PM CDT [facility] IRON BINDING CAPACITY 390 250 - 450 MCG/DL 01/09/2025 2:03 PM CDT [facility] IRON SATURATION 11(L) 20 - 55 % 2:03 PM CDT [facility] 01/09/2025 10:0 9 AM CDT Clarita Grissom MD LABORATORY Final Result [facility] [address] [place] [address], [place] [phone] * ALBUMIN URINE RANDOM W/CREATININE (01/09/2025 10:09 AM CDT) CREATININE (U) 40.0 28 - 217 MG/DL 01/09/2025 2:31 PM CDT [facility] MICROALBUMIN (U) 0.6 <2.0 mg/dL 01/10/20 25 2:31 PM CDT [facility] ALBUMIN/CREAT RATIO 15.0 <30.0 MG/G 01/09/2025 2:31 PM CDT [facility] URINE SPECIMEN / Unknown 01/09/2025 10:09 AM CDT Clarita Grissom MD URINE ORDERABLES Final Result Performing Organization Address City/[facility]/ZIP Co de Phone Number [facility] [address] [place] [address], [place] [phone] * (ABNORMAL) COMPREHENSIVE METABOLIC PANEL (01/09/2025 10:09 AM CDT) GLUCOSE 87 70 - 99 MG/DL 01/09/2025 1:22 PM CDT [facility] BUN 13 7 - 18 MG/DL 01/09/2025 1:22 PM CDT [facility] CREATININE S/P/B 0.78 0.55 - 1.02 MG/DL 01/09/2025 1:22 PM [facility] SODIUM S/P/B 143 136 - 145 MMOL/L 01/09/2025 1:22 PM [facility] POTASSIUM S/P/B 4.7 3.5 - 5.1 MMOL/L 01/09/2025 1:22 PM [facility] CHLORIDE S/P/B 103 100 - 108 MMOL/L 01/09/2025 1:22 PM [facility] CO2 28.9 21 - 32 MMOL/L 01/09/2025 1:22 PM [facility] CALCIUM S/P/B 9.9 8.5 - 10.1 MG/DL 01/09/2025 1:22 PM [facility] BILIRUBIN TOTAL S/P/B 0.4 0.2 - 1.2 MG/DL 01/09/2025 1:22 PM [facility] TOTAL PROTEIN S/P/B 7.4 6.4 - 8.2 G/DL 01/09/2025 1:22 PM [facility] ALBUMIN S/P/B 3.5 3.4 - 5.0 G/DL 01/09/2025 1:22 PM [facility] AST 47(H) 15 - 37 U/L 01/09/2025 1:22 PM [facility] ALT 34 14 - 55 U/L 01/09/2025 1:22 PM [facility] ALKALINE PHOSPHATASE S/P/B 120 50 - 136 U/L 01/09/2025 1:22 PM [facility] ANION GAP 11.1 5 - 15 MMOL/L 01/09/2025 1:22 PM [facility] BUN CREATININE RATIO 16.7 6 - 26 01/09/2025 1:22 PM CDT [facility] A/G RATIO 0.9(L) 1.0 - 2.0 RATIO 01/09/2025 1:22 PM CDT [facility] GFR ESTIMATE >90 >90 ML/MIN/1.7 3 M2 01/09/2025 1:22 PM CDT [facility] Comment: NOTE: eGFR is not calculated for patients <18 years of age. This is an estimated GFR calculation using the new CKD EPI creatinine equation without race and so does not require a correction factor for race. This estimated GFR should not be used for calculating drug doses. 01/09/2025 10:0 9 AM CDT us Clarita Grissom MD LABORATORY Final Result [facility] [address] [place] [address], [place] [phone] * (ABNORMAL) LIPID PANEL (01/09/2025 10:09 AM CDT) CHOLESTEROL 233(H) <200.0 MG/DL 01/09/2025 1:22 PM CDT [facility] TRIGLYCERIDES 170(H) <150 MG/DL 01/09/2025 1:22 PM CDT [facility] HDL 52 >40.0 MG/DL 01/09/2025 1:22 PM T [facility] LDL (CALCULATED) 147(H) <100 MG/DL 01/09/2025 1:22 PM T [facility] NON HDL CHOLESTEROL 181(H) <130 MG/DL 01/09/2025 1:22 PM T [facility] CHOL/HDL RATIO 4.5 0.0 - 4.5 01/09/2025 1:22 PM CDT [facility] VLDL CALCULATION 34 5 - 55 MG/DL 01/09/2025 1:22 PM CDT [facility] LIPID INTERPRETATION 01/09/2025 1:22 PM CDT [facility] Comment: NIH CONCENSUS REPORT RECOMMENDATIONS: [...] MD LABORATORY Final Result Performing Organization Address City/State/[facility] de Phone Number [facility] [address] [facility] [place] [address], from Last 3 Months Insurance Care Teams Galvanizing Pot Runner Relationship Specialty [place] [address] [facility] [address] [address] PCP - General INTERNAL MEDICINE 11/10/24
--- OUTSIDE RECORDS SUMMARY | 2025-03-20 15:13 | XMS_ITS | Encounter Summary ---
Author Organization [facility] Address [address] [place] [address] Care Team Providers Care Manager Product Design Name Role Phone Lainey Maria Primary Care Provider [phone] Encounter Details Date Type Department Care Team (Late Contact Info) Description 05/05/2019 Chart Note [facility] Radiation Therapy [address] [place] [address] [place] [address] [place] [address] Social History Tobacco Use Types [...] Department Care Team (Late Contact Info) Description 04/24/2025 11:30 AM CDT Office Visit [facility] Oncology and Hematology - [place] [address] [facility] [address] [place] [address] Miguel Angel Salmon MD [address] [facility] [address] [place] [address] documented as of this encounter Visit Diagnoses Not on filedocumented in this encounter Care Teams Manager Product Design Relationship Specialty Start Date End Date Lainey Maria PA PCP - General Physician Tie Maker 03/22/19 documented as of this encounter
--- OUTSIDE RECORDS SUMMARY | 2025-03-20 15:13 | XMS_ITS | Encounter Summary ---
Author Organization [facility] Address [address] [place] [address] Care Team Providers Care Felt Checker Name Role Phone Lainey Maria Primary Care Provider [phone] Reason for Visit * Reason Comments Follow Up Encounter Details Date Type Department Care Team ([facility] Contact Info) Description 03/20/2025 2:00 PM CDT Office Visit [facility] Oncology and Hematology - [place] [address] [facility] [address] [place] [address] Miguel Angel Salmon MD [address] [facility] [address] [place] [address] Shortness of breath (Primary Dx); Chronic anemia Social History Tobacco Use Types Packs/Day Years [...] Description 04/24/2025 11:30 AM CDT Office Visit [facility] Oncology and Hematology - [place] [address] [facility] [address] [place] [address] Miguel Angel Salmon MD [address] [facility] [address] [place] [address] Scheduled Orders Name Type Priority Associated Diagnoses Orde r Schedule XR CHEST PA AND LATERAL 2 VW Imaging Stat Shortness of breath 1 Occurrences starting 03/20/2025 until 03/20/2026 BASIC METABOLIC PANEL Lab Stat Chronic anemia Expected: 04/17/2025, Expires: 03/20/2026 CBC WITH DIFFERENTIAL Lab Stat Chronic anemia Expected: 04/17/2025, Expires: 03/20/2026 documented as of this encounter Visit Diagnoses Diagnosis Shortness of breath- Primary Chronic anemia Anemia, unspecified documented in this encounter Care Teams Felt Checker Relationship Specialty Start Date End Date Lainey Maria PA PCP - General Physician Reel Hooker 03/22/19 documented as of this encounter
== END 2025-03-20 15:02 | disposition home or self-care (01) ==
PROVIDERS: Visit Provider Internal Medicine Hematology & Oncology
DX: R91.8 Other nonspecific abnormal finding of lung field (principal)
CPT/HCPCS: 71046

== ENCOUNTER 2025-04-24 10:50 | Outpatient (CLI) | payer BC, SELFPAY ==
[2025-04-24 11:13] LABS: Hematocrit 26.6 % (37.0-47.0); Hemoglobin 8.3 g/dL (12.0-15.0); Immature Granulocyte Percent A 15.6 % (0-0.5); Lymphocytes Absolute Auto 1.21 K/mm3 (0.9-3.2); Mean Corpuscular HGB Conc 31.2 g/dl (32-36); Mean Corpuscular Hemoglobin 30.1 pg (26-34); Mean Corpuscular Volume 96.4 fl (80-100); Nucleated Red Blood Cells Absolute Auto 0.470 K/mm3 (0.0-0.012); Nucleated Red Blood Cells Perc 12.1 % (0.0-0.2); Platelet Count Result 73 k/mm3 (150-375); Red Blood Count 2.76 M/mm3 (4.2-5.4); White Blood Count 3.9 K/mm3 (4.5-10.0)
[2025-04-24 11:17] LABS: Blood Urea Nitrogen 10 mg/dL (8-26); Carbon Dioxide 26 mmol/L (22-30); Chloride 105 mmol/L (98-109); Estimated Glomerular Filt Rate > 60; Glucose 95 mg/dL (70-105); Ionized Calcium (POC) 1.24 mmol/L (1.11-1.31); Potassium 4.4 mmol/L (3.5-4.9); Sodium 138 mmol/L (138-146)
[2025-04-24 11:26] LABS: Band Neutrophils Percent 5 % (0-6); Lymphocytes Absolute Manual 1.48 K/mm3 (1.1-4.5); Lymphocytes Percent Manual 38.0 % (18-44); Metamyelocytes Percent 1 %; Monocytes Absolute Manual 0.50 K/mm3 (0.1-0.90); Monocytes Percent Manual 13 % (3-9); Neutrophils Absolute Manual 1.87 K/mm3 (1.3-6.7); Neutrophils Percent Manual 43 % (46-73); Total Cells Counted 100
[2025-04-24 11:27] LABS: Schistocytes None Seen
--- OUTSIDE RECORDS SUMMARY | 2025-04-24 11:30 | XMS_ITS | Encounter Summary ---
Author Organization [facility] NEHAL Wagner [facility] Address [address] [place] [address] Care Team Providers Care Police Stenographer Name Role Phone Lainey Maria Primary Care Provider [phone] Reason for Visit * Reason Comments Cancer Follow Up Encounter Details Date Type Department Care Team ([facility] st Contact Info) Description 04/24/2025 11:30 AM CDT [facility] - [place] [address] [facility] [address] [place] [address] Miguel Angel Salmon MD [address] [facility] [address] [place] [address] Metastatic cancer to bone (CMS/HCC) (Primary Dx) Social History Tobacco Use Types [...] Sign Reading Time Taken Comments Blood Pressure 140/81 04/24/2025 11:46 AM CDT Pulse 85 04/24/2025 11:44 AM CDT Temperature 37.1 C (98.7 F) 04/24/2025 11:44 AM CDT Respiratory Rate 16 04/24/2025 11:44 AM CDT Oxygen Saturation 94% 04/24/2025 11:44 AM CDT Inhaled Oxygen Concentration - - Weight 71.7 kg (158 lb) 04/24/2025 11:44 AM CDT Height - - Body Mass Index 27.99 03/20/2025 1:26 PM CDT documented in this encounter Progress Notes * Miguel Angel Salmon MD - 04/24/2025 11:54 AM CDT HEMATOLOGY / ONCOLOGY PROGRESS NOTE Patient Identification: Name: Lucila Conrad Age: 54 y.o. Sex: female : 1970 DIAGNOSIS Metastatic breast cancer CURRENT TREATMENT Patient started anastrozole on February 21, 2025 Ibrance cycle 1 started March 24, 2025. TREATMENT HISTORY SUBJECTIVE Patient is office for follow-up visit. She is complaining of mild tiredness and fatigue. Denies anybone pain. Denies any chest pain or shortness of breath. No other new complaints. Review of system Constitutional: Patient did not mention fevers, sweats, complain of mild tiredness and fatigue, weight and appetite stable HEENT: Patient did not mention sinus congestion, hearing or vision problems Respiratory: Patient did not mention any of cough and shortness of breath Cardiovascular: Patient did not mention chest pain, exertional chest pressure/discomfort, nausea, syncope, shortness of breath GI: Patient did not mention constipation, diarrhea, dsyphagia, reflux symptoms, vomiting, melena : Patient did not mention dysuria, frequency, incontinence, urgency Integumentary system: no lymphadenopathy, sweats, flushing Musculoskeletal: Patient not mention: myalgia, arthralgia Neurological: Patient did not mention blurry or disturbed vision, numbness/weakness, dizziness Skin: No lumps, bumps or rashes. 12 point review of system was reviewed Objective: Vital signs in last 24 hours: As per nursing note Exam: General appearance: alert, cooperative, no distress, appears stated age Head: normocephalic, without obvious abnormality, atraumatic Eyes: conjunctivae/corneas clear, EOM's intact Ears: normal external ear canals AU Nose: Nares normal. Septum midline. Mucosa normal. No drainage or sinus tenderness Throat: Lips, mucosa, and tongue normal. Teeth and gums normal Neck: supple, symmetrical, trachea midline. Lungs: clear to auscultation bilaterally Heart: regular rate and rhythm, S1, S2 normal, no murmur, click, rub or gallop Abdomen: soft, non-tender. Bowel sounds normal. No masses, No organomegaly Extremities: extremities normal, atraumatic, no cyanosis or edema Skin: Skin color, texture, turgor normal. No rashes or lesions Lymph nodes: No lymphadenopathy Neuro: No obvious focal deficit Exam as above PATH LABS Labs from March 20 showed WBC 29.2 hemoglobin 10.1 platelet 127,000 neutrophils 68% creatinine 0.6bilirubin 0.4 B12 more than 1000 iron 45 saturation 14 ferritin 380 Lab from April 24 showed WBC 3.9 hemoglobin 8.3 platelets 73,000 ANC 1400 creatinine 0.8 @IMAGEIMP@ Assessment: Plan: Patient Active Problem List Diagnosis Date Noted Encounter for smoking cessation counseling 10/18/2020 Acute mastitis 09/30/2020 Abnormal magnetic resonance imaging of right breast 04/04/2019 Tobacco dependence 03/29/2019 Overview Note: 1/2 PPD Invasive ductal carcinoma of right breast (CMS/HCC) 03/25/2019 Abnormality of right breast on screening mammogram 03/22/2019 Elevated WBCs Metastatic breast cancer status post CT-guided biopsy of the right femur done on February 06, 2025. ER/NE positive. Initially diagnosed with T2 N0 M0 IDC of the right breast status with lumpectomy and sentinel lymph node biopsy in April 2019. 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 Tumor marker was elevated at 2374. Patient started anastrozole on February 21, 2025. Patient started Ibrance March 24, 2025. She is due to start cycle #2 tomorrow but will hold on for 1 week due to thrombocytopenia and anemia. I will repeat labs in 1 week prior to starting Ibrance. Follow-up with repeat labs including tumor marker in 4 weeks. Bone metastasis. Patient reluctant to start Xgeva due to the dental procedure done in the past. Sheis taking vitamin D and calcium. Anemia. Hemoglobin is worsening due to Ibrance. She will start taking iron 65 mg daily and reduce vitamin B12 to 5000 mcg every other day basis. Follow-up with labs and 4 weeks. Repeat imaging studies will be done after 3 months. 04/24/2025 Miguel Angel Salmon MD documented in this encounter Plan of Treatment Upcoming Encounters Date Type Department Care Team (Late st Contact Info) Description 05/22/2025 10:00 AM CDT [facility] [address] [facility] [address] [place] [address] Miguel Angel Salmon MD [address] [facility] [address] [place] [address] Scheduled Orders Name Type Priority Associated Diagnoses Orde r Schedule CBC WITH DIFFERENTIAL Lab Stat Metastatic cancer to bone (CMS/HCC) Expected: 05/22/2025, Expires: 04/24/2026 COMPREHENSIVE METABOLIC PANEL Lab Stat Metastatic cancer to bone (CMS/HCC) Expected: 05/24/2025, Expires: 04/24/2026 CANCER ANTIGEN 15-3 Lab Routine Metastatic cancer to bone (CMS/HCC) Expected: 04/24/2025, Expires: 04/24/2026 CBC WITH DIFFERENTIAL Lab Stat Metastatic cancer to bone (CMS/HCC) Expected: 05/01/2025, Expires: 04/24/2026 documented as of this encounter Visit Diagnoses Diagnosis Metastatic cancer to bone (CMS/HCC)- Primary Secondary malignant neoplasm of bone and bone marrow documented in this encounter Care Teams Police Stenographer Relationship Specialty Start Date End Date Lainey Maria PA PCP - General Physician Dowel Inserting Machine Operator 03/22/19 documented as of this encounter
--- OUTSIDE RECORDS SUMMARY | 2025-04-24 12:39 | XMS_ITS | Clinical Summary ---
Author Organization [facility] Care Team Providers Care Marine Animal Trainer Name Role Phone Unavailable Primary Care Provider Unavailabl e Social History Tobacco Use Types Packs/Day Years Used Date Smoking Tobacco: Never Assessed Comments Unknown Sex and Gender Information Value Date Recorded Sex Assigned at Not on file Legal Sex Female 8:51 AM SYSTEM ANALYST Gender Identity Not on file Sexual Orientation [...]
--- OUTSIDE RECORDS SUMMARY | 2025-04-24 12:39 | XMS_ITS ---
Author Organization [facility] Address [address] [facility] [place] [place] [address] Care Team Providers Care Golf Course Designer Name Role Phone Lainey Maria Primary Care Provider [phone] Breast Cancer Status:Enrolled (Active) Start date:04/14/2025 Enrollment date:04/14/2025 Enrollment reason:Conversion Current support & services provided:Clinical Management, Refill Management, Benefits and PA Management, Financial Assistance Linked medications:palbociclib (Active) Overview Conversion Continued Care and Services Coordination
--- OUTSIDE RECORDS SUMMARY | 2025-04-24 12:39 | XMS_ITS | Encounter Summary ---
Author Organization [facility] Address [address] [place] [address] Care Team Providers Care Radiology Transcriptionist Name Role Phone Lainey Maria Primary Care Provider [phone] Encounter Details Date Type Department Care Team ([facility] Contact Info) Description 05/05/2019 Chart Note [facility] Radiation Therapy [address] [place] [address] [place] [address] [place] [address] Social History Tobacco Use Types [...] Department Care Team (Late Contact Info) Description 05/22/2025 10:00 AM CDT Office Visit [facility] Oncology and Hematology - [place] [address] [facility] [address] [place] [address] Miguel Angel Salmon MD [address] [facility] [address] [place] [address] documented as of this encounter Visit Diagnoses Not on filedocumented in this encounter Care Teams Radiology Transcriptionist Relationship Specialty Start Date End Date Lainey Maria PA PCP - General Physician Commercial Green Building Designer 03/22/19 documented as of this encounter
--- OUTSIDE RECORDS SUMMARY | 2025-04-24 12:39 | XMS_ITS | Clinical Summary ---
Author Organization [facility] Address [address] [facility] [place] [address] Care Team Providers Care Gatekeeper Name Role Phone Lainey Maria Primary Care Provider [phone] Allergies Active Allergy Reactions Criticality Noted Date [...] Repeat every 28 days. 21 Tablet 4 03/27/2025 11:10 AM CDT 5 Active clindamycin HCL (CLEOCIN) 300 mg Capsule Take 1 Capsule (300 mg) by mouth 4 times daily for 7 days. 28 Capsule 5 03/27/20 25 Active Problems Problem Noted Date Diagnosed Date Encounter for smoking cessation counseling 10/18 Acute mastitis 09/30/2020 Abnormal magnetic resonance imaging of right jordyn ast 04/04/2019 Tobacco dependence 03/29/2019 Overview (03/29/2019): 1/2 PPD Invasive ductal carcinoma of right breast 2018 Cancer Staging:Clinical:Stage IB(cT2, cN0(sn), cM0, G2, ER+, TX+, HER2-) - Signed by Melly Arenas MD on 04/21/2019 Abnormality of right breast on screening mammogr am 03/22/2019 Elevated WBCs Encounters Date Type Department Care Team Description 04/24/2025 11:30 AM CDT Office Visit [facility] Oncology [facility] Hematology [facility] [address] [place] [address] Miguel Angel Salmon MD Metastatic cancer to bone (CMS/HCC) (Primary Dx) 04/21/2025 Specialty Pharmacy [facility] [address] [place] [address] [place] [address] Angely Ramirez PHARMACIST 04/17/2025 Specialty Pharmacy [facility] [address] [place] [address] [place] [address] Angely Ramirez PHARMACIST 04/12/2025 External Device Data STL ABSTRACTION Provider, Abstract 03/29/2025 External Device Data STL ABSTRACTION Provider, Abstract 03/23/2025 Specialty Pharmacy [facility] [address] [place] [address] [place] [address] Beth Brito, PHARMACIST Specialty Pharmacy Refill Coordination 03/21/2025 Orders Only [facility] Oncology [facility] [address] [place] [address] Miguel Angel Salmon MD 03/20/2025 2:00 PM CDT Office Visit [facility] Oncology [facility] Hematology [facility] [address] [place] [address] Miguel Angel Salmon MD Shortness of breath (Primary Dx); Chronic anemia 03/17/2025 Telephone [facility] Oncology and Hematology [facility] [address] [place] [address] Miguel Angel Salmon MD appointment without Tempus 03/15/2025 External Device Data STL ABSTRACTION Provider, Abstract 03/14/2025 External Device Data STL ABSTRACTION Provider, Abstract 02/28/2025 External Device Data STL ABSTRACTION Provider, Abstract 02/28/2025 External Device Data STL ABSTRACTION Provider, Abstract 02/28/2025 External Device Data STL ABSTRACTION Provider, Abstract 02/24/2025 Specialty Pharmacy [facility] [address] [place] [address] [place] [address] Mariluz Angel, PHARMACIST Specialty Pharmacy Clinical Assessment 02/24/2025 Specialty Pharmacy [facility] [address] [place] [address] [place] [address] Mariluz Angel, PHARMACIST Specialty Pharmacy Refill Coordination 02/23/2025 Specialty Pharmacy [facility] [address] [place] [address] [place] [address] Mariluz Angel, PHARMACIST Specialty Pharmacy Prior Auth Coordination 02/22/2025 Orders Only [facility] Oncology and Hematology [facility] [address] [place] [address] Miguel Angel Salmon MD 02/21/2025 4:00 PM CDT Office Visit [facility] Oncology and Hematology [place] [address] [place] [address] Miguel Angel Salmon MD Chronic anemia (Primary [...] (158 lb) 04/24/2025 11:44 AM CDT Height 160 cm (5' 3) 03/20/2025 1:26 PM CDT Body Mass Index 27.99 03/20/2025 1:26 PM CDT Plan of Treatment Upcoming Encounters Date Type Department Care Team (Late st Contact Info) Description 05/22/2025 10:00 AM CDT Office Visit [facility] Oncology and Hematology - [place] [address] [facility] [address] [address] [place] [address] Miguel Angel Salmon MD [address] [facility] [address] [place] [address] Health Maintenance Due Date Last [...] 07/11/2025 01/09/2025 Medical Devices Implanted Type Area Field Sales Specialist Device Identifier Shelf Expiration Date Model / Serial / Lot Hemostatic Surgicel 2x14in 1950 - [id number] Implanted:Qty: 1 on 04/13/2019 by Melly Arenas MD at [facility] Hemostatic Right: Breast [employer] 12/08/20191950 / / [id number] Procedures Procedure Name Priority Date/Time Associated Diagnosis Comments CBC WITH AUTODIFFERENTIAL Routine 03/20/2025 12:36 PM CDT XR CHEST LAT 1 VW Routine 03/20/2025 10: 09 AM CDT [facility] XF Routine 03/02/2025 11:30 AM CDT Metastatic cancer to bone (CMS/HCC) [facility] XT NORMAL BLOOD Routine 4:06 PM CDT Metastatic cancer to bone (CMS/HCC) [facility] XT DNA AND RNA SOLID TUMOR Routine 02/21/2025 4:06 PM CDT Metastatic cancer to bone [...] Recently Relevant to Health Maintenance Results * CBC WITH AUTODIFFERENTIAL (03/20/2025 12:36 PM CDT) Blood us Miguel Angel Salmon MD HEMATOLOGY ORDERABLES Final Res ult * XR CHEST LAT 1 VW (03/20/2025 10:09 AM CDT) Anatomical Region Laterality Modality Chest Other us Miguel Angel Salmon MD DIAGNOSTIC IMAGING ORDERABLES F inal Result * [facility] XF (03/02/2025 11:30 AM CDT) Reason for Study To identify mutation s relevant to patient's cancer. 03/02/2025 11:30 AM CDT [facility] Genetic Diseases Assessed Cancer 03/02/2025 11:30 AM CDT [facility] Description of Ranges of DNA Sequences Examined 105 gene liquid biopsy 11:30 AM CDT [facility] Overall Interpretation positive 03/02/2025 11:30 AM CDT [facility] Portal [email or web address] 03/02/2025 11:30 AM CDT [facility] Comment:[facility] link Low Coverage Regions JAK1, MSH3, SPOP, TERT 11:30 AM CDT [facility] Therapy Count 4 03/02/2025 11:30 AM CDT [facility]: Potential Therapy 1 Gene: 8975^PIK3CA^HGNC Variant: p.[id number] Match Type: snvIndel Match Type Description: PIK3CA p.F3873L Agent: Alpelisib + Fulvestrant Drug Class: Combination (PI3K Inhibitor + Estrogen Receptor Antagonist) Tissue: Breast Cancer Association: Response Evidence Status: Consensus Evidence ID: NCCN KDB Variant: [id number] - GOF NCCN Associated Evidence: Consensus, Breast Cancer MSK Associated Evidence: MSK OncoKB, Level 1 Label: FDA On Label FDA Approved?: Yes On label?: Yes 03/02/2025 11:30 AM CDT [facility]: Potential Therapy 2 Gene: 8975^PIK3CA^HGNC Variant: p.[id number] Match Type: snvIndel Match Type Description: PIK3CA p.Q7692Y Agent: Capivasertib + Fulvestrant Drug Class: Combination (Lara-AKT Inhibitor + Estrogen Receptor Antagonist) Tissue: Breast Cancer Association: Response Evidence Status: Consensus Evidence ID: NCCN KDB Variant: [id number] - GOF NCCN Associated Evidence: Consensus, Breast Cancer MSK Associated Evidence: MSK OncoKB, Level 1 Label: FDA On Label FDA Approved?: Yes On label?: Yes 03/02/2025 11:30 AM CDT [facility] Tempus: Potential Therapy 3 Gene: 8975^PIK3CA^HGNC Variant: p.M0974F Match Type: snvIndel Match Type Description: PIK3CA p.Q8784J Agent: Inavolisib + Fulvestrant + Palbociclib Drug Class: Combination (PI3K Inhibitor + Estrogen Receptor Antagonist + CDK4/6 Inhibitor) Tissue: Breast Cancer Association: Response Evidence Status: Consensus Evidence ID: NCCN KDB Variant: Fwfw-kn-vuxiyznu NCCN Associated Evidence: Consensus, Breast Cancer MSK Associated Evidence: MSK OncoKB, Level 1 Label: FDA On Label FDA Approved?: Yes On label?: Yes 03/02/2025 11:30 AM CDT [facility]: Potential Therapy 4 Gene: 8975^PIK3CA^HGNC Variant: p.D2302K Match Type: snvIndel Match Type Description: PIK3CA p.U0154F Agent: Alpelisib Drug Class: PI3K Inhibitor Tissue: Solid Tumors Association: Response Evidence Status: Clinical research Evidence ID: [id number] Evidence URL: https://www.ncbi.nlm.n ih.gov/pubmed/15297104 Evidence Title: Phosphatidylinositol 3-Kinase -Selective Inhibition With Alpelisib (RHX629) in LLP3VB-Dmxydyl Solid Tumors: Results From the Balzy-fz-Wfbww Study - PubMed KDB Variant: Fhvh-of-lbethtvq Label: FDA Off Label FDA Approved?: Yes On label?: No 03/02/2025 11:30 AM CDT [facility] Trial Count 3 03/02/2025 11:30 AM CDT [facility]: Clinical Trial Match 1 Clinical Trial NCT ID: [id number] Clinical Trial Title: Iwiwi-ad-Rfayi Study of Mutant-selective PI3K Inhibitor, RLY-2608, As a Single Agent in Advanced Solid Tumor Patients and in Combination with Fulvestrant in Patients with Advanced Breast Cancer Clinical Trial URL: https://clinicaltrials .gov/ct2/show/MSV26714 432 Clinical Phase: Phase 1 Clinical Trial Matches: PIK3CA p.A1846Y mutation Clinical Trial Distance and Location: [address] [place], [place] 03/02/2025 11:30 AM CDT [facility]: Clinical Trial Match 2 Clinical Trial NCT ID: [id number] Clinical Trial Title: [id number] in Participants With Advanced Solid Tumors Clinical Trial URL: https://clinicaltrials .gov/ct2/show/CTS46542 704 Clinical Phase: Phase 1 Clinical Trial Matches: PIK3CA p.E3063H mutation Clinical Trial Distance and Location: [address] [place], [place] 03/02/2025 11:30 AM CDT [facility]: Clinical Trial Match 3 Clinical Trial NCT ID: [id number] Clinical Trial Title: Nrjts-fj-Cmtuq Study of STX-478 as Monotherapy and in Combination With Other Antineoplastic Agents in Participants With Advanced Solid Tumors Clinical Trial URL: https://clinicaltrials .gov/ct2/show/WPS28876 139 Clinical Phase: Phase 1/Phase 2 Clinical Trial Matches: PIK3CA p.R4727A mutation Clinical Trial Distance and Location: [address] [place], [place] 03/02/2025 11:30 AM CDT [facility] Tumor Mutational [place] 4.3 m/MB 03/02/2025 11:30 AM CDT [facility] Microsatellite Instability Note MSI-High not detected 11:30 AM CDT [facility] Blood specimen (specimen) 02/23/2025 9:35 PM CDT Narrative This result has genomic variants that were not included in this document. Miguel Angel Salmon MD MOLECULAR ORDERABLES Final Resu lt [facility] [address] [facility], [address] [place] [address], [facility] [address] [facility] [address], [address] [place] [address] * [facility] XT NORMAL BLOOD (02/21/2025 4:06 PM CDT) [facility] 02/21/2025 11:00 PM CDT [facility] Comment:See NGS Report for R esults. Blood specimen (specimen) 02/21/2025 4:06 PM CDT 02/21/2025 4:07 PM CDT us Miguel Angel Salmon MD MOLECULAR ORDERABLES Final Resu lt [facility] [address] [place] [address], [facility] [address] [place] [address] * COMPREHENSIVE METABOLIC PANEL (02/21/2025 9:47 AM [...] right breast conservation therapy. DICTATION LOCATION: [facility] TECHNIQUE: Mediolateral oblique, mediolateral and craniocaudal views [...] FINAL ASSESSMENT: BI-RADS CATEGORY 2: [facility]ign [facility] MAMMO ORDERABLES Final R esult * CERV/VAG CYTO AGE BASED SCREEN PAP (01/10/2020 11:38 AM CDT) COMMENT (PAP): SEE COMMENT 0 12:55 PM CDT [facility] Comment: This order for age-based cervical cancer and STI screening follows ACOG guidelines(PB 168, 140, CPV548). See individual assays for performing site location. [...] 01/13/2020 12:55 PM CDT [facility] TETRYL NITRATOR OPERATOR: SEE COMMENT 2019 12:55 PM CDT [facility] Comment: BLG, CT(ASCP) CT screening location: [place] [address] [place] [address] EXPLANATORY NOTE SEE COMMENT 020 12:55 PM [...] of this assay have been determined by [facility]. The modifications have not been cleared or approved by the FDA. This assay has been validated pursuant to the CLIA regulations and is used for clinical purposes. Genital SWAB OF ENDOCERVIX / Unknown Collection / Unknown 01/10/2020 11:38 AM CDT 01/10/2020 6:22 PM CDT Narrative [facility] - 01/13/2020 12:55 PM CDT Performing Organization Information: Site ID: [place] Name: [facility] Address: [address] [place] [address] Director: Jian Park D.O., MPH Site ID: [place] [facility] Address: [facility] [address] [place] [address] Director: Usha Garza us Nickie Alegre MD PATHOLOGY/CYTOLOGY ORD ERABLES Final Result [facility] [phone] from Last 3 Months or Most Recently Relevant to Health Maintenance Insurance [employer] Commercial [id number] ACCESS CHOICE [employer] BLUE ACCESS CHOICE Care Teams Gatekeeper Relationship Specialty Start Date End Date Lainey Maria PA PCP - General Physician Assessment Manager 03/22/19
--- OUTSIDE RECORDS SUMMARY | 2025-04-24 12:39 | XMS_ITS | Clinical Summary ---
Author Organization [facility] Address [facility] [place] [address] Care Team Providers Care Chief Executive Officer Name Role Phone Clarita Grissom MD Primary Care Provider [phone] Allergies Active Allergy Reactions Criticality Noted Date Comments Iodinated Contrast Media Hives High 04/13/2019 Medications omega-3 fatty acids 1,000 mg capsule Take 1,000 mg by mouth 2 (two) times a day Active ergocalciferol (DRISDOL) 8,000 unit/mL drops Take by mouth Active vitamin B complex capsule Take 1 capsule by mouth daily Active iron aspgly,ps-C-B12 -FA-Ca-suc 150-60-25-1 us-fu-lgw-mg capsule Take by mouth Active turmeric root [...] Type Department Care Team Description 02/02/2025 Telephone [facility] Gastroenterology [address] [facility] 2nd Floor [address] [place] [address] Kirsten Noriega NP 02/01/2025 Telephone [facility] Medicine Gastroenterology [address] [facility] 12th [place] [address] [place] [address] Kirsten Noriega NP 01/30/2025 2:08 PM CDT - 01/30/2025 11:59 PM CDT Hospital Encounter [facility] [address] [place] [address] Elevated liver function tests Discharge Disposition: Discharge to home or self care 01/30/2025 1:55 PM CDT Lab [facility] [address] [place] [address] Elevated liver function tests 01/30/2025 1:30 PM CDT Procedure visit [facility] Medicine Gastroenterology [address] [place] [address] Medical Office Building 4, [address] [place] [phone] Elevated liver function tests 01/30/2025 1:00 PM CDT Office Visit [facility] Gastroenterology [address] [place] [address] Medical Office Building [address], [address] [place] [phone] Kirsten Noriega NP Elevated liver function tests (Primary Dx); Encounter for colorectal cancer screening 01/30/2025 Results Follow-Up [facility] Gastroenterology [address] [place] [address] Medical Office Building [address], [address] [place] [address] Kirsten Noriega NP Liver Elastography w/o Imaging W/I&R -[facility] (All Locations), RUQ Ultrasound, Protime-INR, Additional followed-up [...] :45 PM CDT Elevated liver function tests [id number] Routine 01/30/2025 2 :45 PM CDT Elevated [...] (01/30/2025 2:45 PM CDT) PHOSPHATIDYLETHANOL Negative . [facility] Comment: ADDITIONAL INFORMATION This report is intended for use in clinical monitoring and management of patients. It is not intended for use in employment-related testing. This test was developed and its performance characteristics determined by [facility] in a manner consistent with CLIA requirements. This test has not been cleared or approved by the U.S. Food and Drug Administration. Test Performed by: [facility] [address] [place] [address] Personal Fitness Trainer: Miryam Cornell Ph.D.; CLIA# [id number] PEth 16:0/18:1 (POPEth)by LC-MS/MS <10 Cutoff: 10 [...] CDT 01/30/2025 3:24 PM CDT Kirsten Noriega PASTE UP ARTIST APPRENTICE LAB BLOOD ORDERABLES Final Result [facility] [address] [facility]. [place] [address] [place] [facility] * eGFR (01/30/2025 2:45 PM [...] CDT 01/30/2025 3:24 PM CDT Kirsten Noriega PASTE UP ARTIST APPRENTICE LAB BLOOD ORDERABLES Final Result Performing Organization Address City/[facility] Co de Phone Number [facility] [address] [address] [facility] [place] [address] * Smooth muscle antibody, qualitative (01/30/2025 2:45 PM CDT) Anti-smooth muscle Negative Negative Comment:Testing performed by : [facility], [address] [place] [address]., [address] Blood 01/30/2025 2:45 PM CDT 01/30/2025 6:30 PM CDT us Kirsten Noriega JEREMIAS LAB BLOOD ORDERABLES Final Result Performing Organization Address [facility] Co de Phone Number MARV Add[facility] [address] [address] [facility] [place] [address] * Senior staff review (01/30/2025 2:45 PM CDT) Senior Staff Review Specimen Blood Comment:Testing performed by : [facility], [address] [place] [address]., [id number] Senior Staff Review Review Done MARV SUBRAMANIAN Comment: Reviewed by senior staff.01/31/2025 08:59:08 CDT by marcelo christensen ([facility]). Testing performed by: [facility], [address] [place] [address]., [id number] Blood 01/30/2025 2:45 PM CDT 01/30/2025 8:33 PM CDT Ben Lara MD LAB BLOOD ORDERABLES Edited Re sult - Final MARV FLORESWCH [address] [address] [facility] [place] [address] * Mitochondrial antibodies, qualitative (01/30/2025 2:45 PM CDT) Anti-mitochond rial Negative Negative Comment:Testing performed by : [facility], [address] [place]., [address] Blood 01/30/2025 2:45 PM CDT 01/30/2025 6:30 PM CDT Kirsten Noriega NP LAB BLOOD ORDERABLES Final Result Performing Organization Address [facility] Co de Phone Number MARV FLORESWCH [address] [address] [place] [address] * (ABNORMAL) Iron profile w/ IBC (01/30/2025 2:45 PM CDT) Iron 20(L) 35 - 145 mcg/dL Comment:Testing performed by : [facility], [address] [place] [address]., [id number] TIBC 317 250 - 400 mcg/dL MARV SUBRAMANIAN Comment:Testing performed by : [facility], [address] [place] [address]., [id number] Transferrin saturation 6(L) 20 - 50 % MARV SUBRAMANIAN Comment:Testing performed by : [facility], [address] [place] [address]., [address] Blood 01/30/2025 2:45 PM CDT 01/30/2025 6:09 PM CDT Kirsten Noriega NP LAB BLOOD ORDERABLES Final Result Performing Organization Address [facility]/ZIP Co de Phone Number MARV FLORESCH [address] [address] [facility] [place] [address] * (ABNORMAL) CBC with auto differential (01/30/2025 2:45 PM CDT) WBC 23.31(H) 3.80 - 9.90 K/cumm Comment:WBC corrected for NR BCs. Report corrected on 01/30/2025 17:03:06 CDT by KXS: Previously reported as 23.42. Hgb 9.9(L) 11.9 - 15.5 g/dL CERNER [facility] Hct 32.1(L) 35.6 - 45.5 % [facility] Plt 158 150 - 400 K/cumm [facility] MPV 10.4 9.1 - 12.3 fL [facility] RBC 3.19(L) 3.90 - 5.20 M/cumm [facility] MCV 100.6(H) 81.3 - 96.4 fL [facility] MCH 31.0 27.1 - 33.3 pg [facility]ER [facility] MCHC 30.8(L) 32.3 - 35.7 g/dL [facility] RDW CV 18.1(H) 11.1 - 14.9 % [facility] RDW SD 65.6(H) 35.7 - 48.1 fL [facility] NRBC abs 1.76(H) 0.00 - 0.01 K/cumm C[facility]ER [facility] Blood 01/30/2025 2:45 PM CDT 01/30/2025 3:24 PM CDT Kirsten Noriega NP LAB BLOOD ORDERABLES Edite d Result - Final MARV FLORESCH [address] [facility]. [place] [address] * Hepatitis C antibody Blood (01/30/2025 2:45 PM CDT) Pathologist [facility] Hep C Ab Nonreactive Nonreactive Comment: [...] last revised on 2019. Testing performed by: [facility], [address] [place] [address]., [id number] Blood 01/30/2025 2:45 PM CDT 01/30/2025 6:09 PM CDT Kirsten Noriega NP LAB MICROBIOLOGY - GENERAL ORDERABLES Final Result Performing Organization Address City/[facility] Co de Phone Number MARV [facility] [address] [address] [place] [address] * (ABNORMAL) [id number] (01/30/2025 2:45 PM CDT) Pathologist [facility] alpha-1 antitrypsin 254(H) 90 - 200 mg/dL Comment:Testing performed by : [facility], [address] [facility], [place]., [address] Blood 01/30/2025 2:45 PM CDT 01/30/2025 6:30 PM CDT us Kirsten Noriega NP LAB BLOOD ORDERABLES Final Result Performing Organization Address City/[facility] Co de Phone Number MARV [facility] [address] [address] [address] * Hepatitis A antibody, IgM Blood (01/30/2025 2:45 PM CDT) Hep A IgM Nonreactive Nonreactive Comment: Interpretive Data: If Hep A IgM Ab is reported as Equivocal, a new sample should be drawn in two weeks for testing. Current interpretive data was last revised on 19. Testing performed by: [facility], [address] [place] [address]., [address] Blood 01/30/2025 2:45 PM CDT 01/30/2025 6:09 PM CDT Kirsten Noriega NP LAB MICROBIOLOGY - GENERAL ORDERABLES Final Result Performing Organization Address [facility] Co de Phone Number MARV FLORESCH [address] [address] [place] [address] * Hepatitis A antibody, total Blood (01/30/2025 2:45 PM CDT) Hep A total Nonreactive Nonreactive Comment:Testing performed by : [facility], [address] [place] [address]., [id number] Blood 01/30/2025 2:45 PM CDT 01/30/2025 6:30 PM CDT Kirsten Noriega NP LAB MICROBIOLOGY - GENERAL ORDERABLES Final Result Performing Organization Address [facility] Co de Phone Number [facility] [address] [address] [address] * (ABNORMAL) Ceruloplasmin (01/30/2025 2:45 PM CDT) Ceruloplasmin 48.9(H) 16.0 - 45.0 mg/dL Comment:Testing performed by : [facility], [address] [place] [address]., [address] Blood 01/30/2025 2:45 PM CDT 01/30/2025 6:30 PM CDT Kirsten Noriega NP LAB BLOOD ORDERABLES Final Result Performing Organization Address City/[facility] Co de Phone Number MARV FLORESWCH [address] [address] [place] [address] * (ABNORMAL) Hepatitis B core antibody, total Blood (01/30/2025 2:45 PM CDT) Pathologist [facility] Hep B core IgG/IgM Reactive( A) Nonreactive Comment:Testing performed by : [facility], [address] [place]., [address] Blood 01/30/2025 2:45 PM CDT 01/30/2025 6:30 PM CDT Kirsten Noriega NP LAB MICROBIOLOGY - GENERAL ORDERABLES Final Result [facility] [address] [facility]. Department of Laboratories [place], [place] [id number] * (ABNORMAL) Manual Differential (01/30/2025 2:45 PM CDT) [facility] Differential Manual Cells Counted 116 CERNER W Neutrophil abs 13.05(H) 1.50 - 6.50 K/cumm [facility] Imm gran abs 4.66(H) 0.00 - 0.10 K/cumm [facility] Lymphocyte abs 3.26 0.80 - 3.30 K/cumm [facility] Monocyte abs 0.93(H) 0.20 - 0.80 K/cumm [facility] Eosinophil abs 0.23 0.00 - 0.50 K/cumm [facility] Basophil abs 1.17(H) 0.00 - 0.10 K/cumm [facility] Neutrophil pct 56.0 % [facility] Comment: Interpretive Data Percent cell count reference ranges are not reported, since discordance with absolute values may lead to misinterpretation of CBC data. Current Interpretive Data was last revised on 2017. Lymphocyte pct 13.0 % [facility] Comment: Interpretive Data Percent cell count reference ranges are not reported, since discordance with absolute values may lead to misinterpretation of CBC data. Current Interpretive Data was last revised on 2017. Monocyte pct 4.0 % [facility] Comment: Interpretive Data Percent cell [...] NP LAB BLOOD ORDERABLES Final Result MARV SYCH [address] [facility]. [place] [address] * Hepatitis B surface antibody (immune status) Blood (01/30/2025 2:45 PM CDT) HBsAb (immune status) Reactive Comment: This result is consistent with immunity to Hepatitis B Virus when used in the setting of routine screening. Current interpretive data was last revised on 22 Testing performed by: [facility], [address] [place]., [address] HBsAb (immune status) index 38.2 mIUnits/m L MARV SUBRAMANIAN Comment:Testing performed by : [facility], [address] [place]., [address] Blood 01/30/2025 2:45 PM CDT 01/30/2025 6:30 PM CDT Kirsten Gamboa Leann MCDOWELL LAB MICROBIOLOGY - GENERAL ORDERABLES Final Result Performing Organization Address [facility] Co de Phone Number [facility] [address] [address] [facility] [place] [address] * Hepatitis B Surface Antigen Blood (01/30/2025 2:45 PM CDT) [facility] HepBsAg Nonreactive Nonreactive Comment:Testing performed by : [facility], [address] [place] [address]., [address] Blood 01/30/2025 2:45 PM CDT 01/30/2025 6:09 PM CDT Kirsten Bee Leann MCDOWELL LAB MICROBIOLOGY - GENERAL ORDERABLES Final Result Performing Organization Address [facility] de Phone Number [facility] [address] [address] [facility] [place] [address] * Gamma GT (01/30/2025 2:45 PM CDT) [facility] GGT 33 5 - 35 Units/L Blood 01/30/2025 2:45 PM CDT 01/30/2025 3:24 PM CDT Kirsten Bee Leann MCDOWELL LAB BLOOD ORDERABLES Final Result Performing Organization Address [facility] Co de Phone Number [facility] BJWCH [address] [address] [facility] [place] [address] * IgG (01/30/2025 2:45 PM CDT) [facility] Immunoglobulin G 1,000 700 - 1,600 mg/dL Comment:Testing performed by : [facility], [address] [place] [address]., [address] Blood 01/30/2025 2:45 PM CDT 01/30/2025 6:09 PM CDT Kirsten Gamboa Noriega JEREMIAS LAB BLOOD ORDERABLES Final Result Performing Organization Address [facility] Co de Phone Number [facility] [address] [facility] [place] [address] * (ABNORMAL) Ferritin (01/30/2025 2:45 PM CDT) [facility] Ferritin 323(H) 13 - 150 ng/mL Comment:Testing performed by : [facility], [facility] [facility], [place]., [address] Blood 01/30/2025 2:45 PM CDT 01/30/2025 6:09 PM CDT Kirsten Gamboa Leann MCDOWELL LAB BLOOD ORDERABLES Final Result Performing Organization Address [facility] Phone Number [facility] [address] [facility] [place] [address] * (ABNORMAL) Comprehensive metabolic panel (01/30/2025 2:45 PM CDT) [facility] Sodium 140 135 - 145 mmol/L Potassium, pl 4.6 3.3 - 4.9 mmol/L [facility] Chloride 101 97 - 110 mmol/L [facility] CO2 22 22 - 32 mmol/L [facility] Anion gap 17(H) 2 - 15 mmol/L [facility] BUN 14 6 - 25 mg/dL [facility] Creatinine 0.73 0.60 - 1.10 mg/dL [facility] Glucose 85 70 - 199 mg/dL [facility] Comment: Interpretive Data Fasting glucose >/= [...] NP LAB [place] [address] [facility] [place] [address] * MEDHAT ab ql w/rflx to MEDHAT [...] last revised on 2020. Testing performed by: [facility], [address] [facility] [place]., [address] Blood 01/30/2025 2:37 PM CDT 01/30/2025 6:30 PM CDT us Kirsten Noriega NP LAB BLOOD ORDERABLES Final Result Performing Organization Address [facility] de Phone Number CERNER B[facility] [address] [address] [facility] [place] [address] * Protime-INR (01/30/2025 2:37 PM CDT) PT [...] BLOOD ORDERABLES Final Result Performing Organization Address [facility] de Phone Number CERNER BJWCH [address] [address] [facility] [place] [address] * RUQ Ultrasound (01/30/2025 2:32 PM CDT) [...] sult * Liver Elastography w/o Imaging W/I&R -[facility] (All Locations) (01/30/2025 1:48 PMCDT) Anatomical Region Laterality Modality Other us Kirsten Noriega NP GI PROCEDURE ORDERABLES Fi nal Result from Last 3 Months Insurance [place] Care Teams Chief Executive Officer Relationship Specialty [place] [address] [address] PCP - General Internal Medicine 12/29/24
--- OUTSIDE RECORDS SUMMARY | 2025-04-24 12:39 | XMS_ITS | Encounter Summary ---
Author Organization [facility] Address [address] [place] [address] Care Team Providers Care Beauty Specialist Name Role Phone Lainey Maria Primary Care Provider [phone] Encounter Details Date Type Department Care Team (Late Contact Info) Description 04/17/2025 Specialty Pharmacy [facility] [address] [place] [address] Angely Ramirez, PHARMACIST Social History Tobacco Use Types Packs/Day Years [...] Description 05/22/2025 10:00 AM CDT Office Visit [facility] Oncology and Hematology - [place] [address] [facility] [address] [place] [address] Miguel Angel Salmon MD [address] [facility] [address] [place] [address] documented as of this encounter Visit Diagnoses Not on filedocumented in this encounter Care Teams Beauty Specialist Relationship Specialty Start Date End Date Lainey Maria PA PCP - General Physician Transportation Design Engineer 03/22/19 documented as of this encounter
== END 2025-04-24 10:51 | disposition home or self-care (01) ==
LOC: ANHLAB 10:53
PROVIDERS: Visit Provider Internal Medicine Hematology & Oncology
DX: D64.9 Anemia, unspecified (principal)
CPT/HCPCS: 36415; 80047; 85025

== ENCOUNTER 2025-05-01 10:21 | Outpatient (CLI) | payer BC, SELFPAY ==
[2025-05-01 10:47] LABS: Hematocrit 29.4 % (37.0-47.0); Hemoglobin 8.8 g/dL (12.0-15.0); Immature Granulocyte Percent A 21.6 % (0-0.5); Lymphocytes Absolute Auto 1.66 K/mm3 (0.9-3.2); Mean Corpuscular HGB Conc 29.9 g/dl (32-36); Mean Corpuscular Hemoglobin 29.8 pg (26-34); Mean Corpuscular Volume 99.7 fl (80-100); Nucleated Red Blood Cells Absolute Auto 1.220 K/mm3 (0.0-0.012); Nucleated Red Blood Cells Perc 13.7 % (0.0-0.2); Platelet Count Result 104 k/mm3 (150-375); Red Blood Count 2.95 M/mm3 (4.2-5.4); White Blood Count 8.9 K/mm3 (4.5-10.0)
[2025-05-01 10:58] LABS: Band Neutrophils Percent 4 % (0-6); Basophils Absolute Manual 0.17 K/mm3 (0.0-0.1); Basophils Percent Manual 2 % (0-1); Eosinophils Absolute Manual 0.08 K/mm3 (0.02-0.50); Eosinophils Percent Manual 1 % (0-4); Lymphocytes Absolute Manual 2.13 K/mm3 (1.1-4.5); Lymphocytes Percent Manual 24.0 % (18-44); Metamyelocytes Percent 1 %; Monocytes Absolute Manual 1.24 K/mm3 (0.1-0.90); Monocytes Percent Manual 14 % (3-9); Neutrophils Absolute Manual 5.16 K/mm3 (1.3-6.7); Neutrophils Percent Manual 54 % (46-73); Total Cells Counted 100
[2025-05-01 10:59] LABS: Anisocytosis 2+; Hypochromasia 1+; Schistocytes None Seen
--- OUTSIDE RECORDS SUMMARY | 2025-05-01 11:29 | XMS_ITS | Clinical Summary ---
Author Organization [facility] Address [address] [place] [address] Care Team Providers Care Chuck Tender Name Role Phone Clarita Grissom MD Primary Care Provider [phone] Allergies Active Allergy Reactions Criticality Noted Date Comments Iodinated Contrast Media Hives High 04/13/2019 Medications aspirin 81 MG chewable tablet Chew 1 tablet (81 mg total) by mouth daily. Active metFORMIN ER (GLUCOPHAGE-XR) 500 MG 24 hr tabletIndications: Type 2 diabetes mellitus without complication, without long-term current use of insulin ([facility]/HCC HHS/[facility]) Take 1 tablet (500 mg total) by [...] ng multiple sites with positive rheumatoid factor ([facility]CC HHS/HCC) 11/14/2024 Assessment & Plan (01/09/2025 5:19 PM CDT): -pt was seen by consumer loan specialist and rxed with steroid /pt was referred to see retirement specialist for hep B per pt before starting MTX -pt to f/u with consumer loan specialist Assessment & Plan (11/15/2024 12:57 PM CDT): [...] complication, without long-term current use of insulin ([facility]) 11/08/2024 Assessment & Plan (01/09/2025 5:19 PM [...] ductal carcinoma of right breast (CMS/H CC [facility]) 03/25/2019 Assessment & Plan (01/09/2025 5:19 PM [...] Group Image (SCAN); CT (SCAN) 02/01/2025 Telephone [facility] Family & Internal Medicine [address] [address] Clarita Grissom MD Information 01/30/2025 Scan [facility] HEALTH INFO SRVCS Scanned, [facility] Lab (SCAN) from Last 3 Months Family History Medical [...] 01/09/2025 8:46 AM CDT Plan of Treatment Health Maintenance Due [...] Screening wi th HPV 01/09/2023 COVID-19 Vaccine (1 - 2023-2 5 season) 2025 Hemoglobin A1C 07/11/2025 01/09/2025, 10/26/2024 Kidney Health Evaluation 01/09/2026 01/09/2025 Lipid Panel 01/09/2026 01/09/2025 PHQ-2 (Physician [place]) Completed 11/08/2024 Meningococcal B Vaccine Aged Out [...] ORDER) 01/30/2025 OUTSIDE LAB (SCAN ORDER) 01/30/2025 LIPID PANEL Routine 01/09/2025 10:09 AM CDT Other hyperlipidemia HEMOGLOBIN, GLYCOSYLATED Routine 01/09/2025 10:09 AM CDT Type 2 diabetes mellitus without complication, without long-term current use of insulin ([facility]) from Last 3 Months or Most Recently Relevant to Health Maintenance Results * CT GENERIC (02/04/2025) Only the most recent of2 resultswithin the time period is included. Anatomical Region Laterality Modality Other 02/04/2025 Result [facility] Scanned SCANNING Final Resu lt * IMAGE GENERIC (02/02/2025) Only the most recent of6 resultswithin the time period is included. Anatomical Region Laterality Modality Other 02/02/2025 Result [facility] Scanned SCANNING Final Resu lt * OUTSIDE PT/INR (SCAN ORDER) (01/30/2025) 01/30/2025 Result [facility] Scanned SCANNING Final Resu lt * OUTSIDE LAB (SCAN ORDER) (01/30/2025) Only the most recent of17 resultswithin the time period is included. 01/30/2025 us [facility] Scanned SCANNING Final Resu lt * (ABNORMAL) HEMOGLOBIN, GLYCOSYLATED (01/09/2025 10:09 AM CDT) HGB A1C 6.3(H) <5.7 % 01/09/2025 1:35 PM CDT [facility] Comment: INCREASED RISK OF DIABETES <5.7% NON-DIABETES 5.7-6.4% INCREASED RISK FOR FUTURE DIABETES > OR = 6.5 CONSISTENT WITH DIABETES STANDARDS OF MEDICAL CARE IN DIABETES-2010 DIABETES CARE, 33(SUPP 1): S1-S61,2010 ESTIMATED AVG GLUCOSE 134 mg/dL 01/09/2025 1:35 PM CDT [facility] 01/09/2025 10:0 9 AM CDT Clarita Grissom MD LABORATORY Final Result [facility] [address] [place] [id number], [place] [phone] * (ABNORMAL) LIPID PANEL (01/09/2025 10:09 AM CDT) CHOLESTEROL 233(H) <200.0 MG/DL 01/09/2025 1:22 PM CDT [facility] TRIGLYCERIDES 170(H) <150 MG/DL 01/09/2025 1:22 PM CDT [facility] HDL 52 >40.0 MG/DL 01/09/2025 1:22 PM CDT [facility] LDL (CALCULATED) 147(H) <100 MG/DL 01/09/2025 1:22 PM CDT [facility] NON HDL CHOLESTEROL 181(H) <130 MG/DL 01/09/2025 1:22 PM CDT [facility] CHOL/HDL RATIO 4.5 0.0 - 4.5 01/09/2025 1:22 PM CDT [facility] VLDL CALCULATION 34 5 - 55 MG/DL 01/09/2025 1:22 PM CDT [facility] LIPID INTERPRETATION 01/09/2025 1:22 PM CDT [facility] Comment: NIH CONCENSUS REPORT RECOMMENDATIONS: [...] MD LABORATORY Final Result Performing Organization Address City/State/[facility] Co de Phone Number [facility] [address] [place] [phone], from Last 3 Months or Most Recently Relevant to Health Maintenance Insurance Care Teams Chuck Tender Relationship Specialty [place] [address] [address] PCP - General INTERNAL MEDICINE 11/10/24
--- OUTSIDE RECORDS SUMMARY | 2025-05-01 11:29 | XMS_ITS | Clinical Summary ---
Author Organization [facility] Care Team Providers Care Pathology Secretary Name Role Phone Unavailable Primary Care Provider Unavailabl e Social History Tobacco Use Types Packs/Day Years Used Date Smoking Tobacco: Never Assessed Comments Unknown Sex and Gender Information Value Date Recorded Sex Assigned at Not on file Legal Sex Female 8:51 AM EVENTS SPECIALIST Gender Identity Not on file Sexual Orientation [...]
--- OUTSIDE RECORDS SUMMARY | 2025-05-01 11:29 | XMS_ITS | Clinical Summary ---
Author Organization [facility] Address [address] [place] [address] Care Team Providers Care Residential Concierge Name Role Phone Lianey Maria Primary Care Provider [phone] Allergies Active Allergy Reactions Criticality Noted Date [...] Repeat every 28 days. 21 Tablet 4 04/25/2025 3:07 PM CDT 5 Active Active Problems Problem Noted Date Diagnosed Date Encounter for smoking cessation counseling 10/18 Acute mastitis 09/30/2020 Abnormal magnetic resonance imaging of right jordyn ast 04/04/2019 Tobacco dependence 03/29/2019 Overview (03/29/2019): 1/2 PPD Invasive ductal carcinoma of right breast 2018 Cancer Staging:Clinical:Stage IB(cT2, cN0(sn), cM0, G2, ER+, HI+, HER2-) - Signed by Melly Arenas MD on 04/21/2019 Abnormality of right breast on screening mammogr am 03/22/2019 Elevated WBCs Encounters Date Type Department Care Team Description 04/25/2025 External Device Data STL ABSTRACTION Provider, Abstract 04/25/2025 Orders Only [facility] Oncology and Hematology - [place] [address] [place] [address] Miguel Angel Salmon MD 04/24/2025 11:30 AM CDT Office Visit [facility] Oncology and Hematology [facility] [address] [place] [address] Miguel Angel Salmon MD Metastatic cancer to bone (CMS/HCC) (Primary Dx) 04/21/2025 Specialty Pharmacy [facility] [address] [place] [address] [place] [address] Angely Ramirez PHARMACIST 04/17/2025 Specialty Pharmacy [facility] [address] [place] [address] [place] [address] Angely Ramirez, PHARMACIST 04/12/2025 External Device Data STL ABSTRACTION Provider, Abstract 03/29/2025 External Device Data STL ABSTRACTION Provider, Abstract 03/23/2025 Specialty Pharmacy [facility] [address] [place] [phone] Beth Brito, PHARMACIST Specialty Pharmacy Refill Coordination 03/21/2025 Orders Only [facility] Oncology and Hematology - [place] [address] [place] [address] Miguel Angel Salmon MD 03/20/2025 2:00 PM CDT Office Visit [facility] Oncology and Hematology - [place] [address] [place] [address] Miguel Angel Salmon MD Shortness of breath (Primary Dx); Chronic anemia 03/17/2025 Telephone [facility] Oncology [facility] Hematology [place] [address] [place] [address] Miguel Angel Salmon MD appointment without [facility] 03/15/2025 External Device Data STL ABSTRACTION Provider, Abstract 03/14/2025 External Device Data STL ABSTRACTION Provider, Abstract 02/28/2025 External Device Data STL ABSTRACTION Provider, Abstract 02/28/2025 External Device Data STL ABSTRACTION Provider, Abstract 02/28/2025 External Device Data STL ABSTRACTION Provider, Abstract 02/24/2025 Specialty Pharmacy [facility] [address] [place] [address] [place] [address] Mariluz Angel, PHARMACIST Specialty Pharmacy Clinical Assessment 02/24/2025 Specialty Pharmacy [facility] [address] [place] [address] [place] [address] Mariluz Angel, PHARMACIST Specialty Pharmacy Refill Coordination 02/23/2025 Specialty Pharmacy [facility] [address] [place] [address] [place] [address] Mariluz Angel, PHARMACIST Specialty Pharmacy Prior Auth Coordination 02/22/2025 Orders Only [facility] On[facility] [address] [place] [address] Miguel Angel Salmon MD 02/21/2025 4:00 PM CDT Office Visit [facility] Oncology and Hematology [facility] [address] [place] [address] Miguel Angel Salmon MD Chronic anemia (Primary [...] Description 05/22/2025 10:00 AM CDT Office Visit [facility] Oncology and Hematology [facility] [address] [facility] [address] [place] [address] Miguel Angel Salmon MD [address] [employer] [address] [place] [address] Health Maintenance Due Date Last Done Comments DIABETES ANNUAL FOOT EXAM 1988 DIABETES ANNUAL RETINAL EXAM 1988 DIABETES MICROALBUMIN ANNUAL SCREEN 1988 LDL CHOLESTEROL ANNUAL 1988 DTAP/TDAP/TD VACCINES (1 - Tdap) 1989 HEPATITIS B VACCINES (1 of 3 - 19+ 3-dose series) 1989 ZOSTER VACCINE (1 of 2) 1989 COLORECTAL SCREENING 2015 Colorectal Cancer Screening 2015 FIT-DNA Q 3 years 2015 FIT/FOBT Q 1 year 2015 Flex Sig/CT Colonography Q 5 years 2015 Lung Cancer Screening 2020 BREAST CANCER SCREENING 01/12/2021 01/13/20 20, 03/16/2019, 02/20/2012 PAP SMEAR 01/09/2023 01/10/2020 Preventative Visit- Commercial 08/10/2024 01/10/2020 CERVICAL CANCER SCREENING 01/09/2025 HPV/Cotest (21-29) 01/09/2025 01/10/2020 HPV/Cotest (30-65) 01/09/2025 01/10/2020 INFLUENZA VACCINE (#1) 2025 DIABETES HBA1C Q 6 MONTHS 07/11/2025 01/09/2025 Medical Devices Implanted Type Area Kiln Feeder Device Identifier Shelf Expiration Date Model / Serial / Lot Hemostatic Surgicel 2x14in 1950 - [id number] Implanted:Qty: 1 on 04/13/2019 by Melly Arenas [place] [facility] [place] Hemostatic Right: Breast [employer] 12/08/20191950 / / [id number] Procedures Procedure Name Priority Date/Time Associated Diagnosis Comments BASIC METABOLIC PANEL Routine 04/24/2025 12:40 PM CDT CBC WITH AUTODIFFERENTIAL Routine 04/24/2025 12:38 PM CDT CBC WITH AUTODIFFERENTIAL Routine 03/20/2025 12:36 PM [...] Recently Relevant to Health Maintenance Results * BASIC METABOLIC PANEL (04/24/2025 12:40 PM CDT) Blood Miguel Angel Salmon MD CHEMISTRY ORDERABLES Final Resu lt * CBC WITH AUTODIFFERENTIAL (04/24/2025 12:38 PM CDT) Only the most recent of2 resultswithin the time period is included. Blood Miguel Angel Salmon MD HEMATOLOGY ORDERABLES Final Res ult * XR CHEST LAT 1 VW (03/20/2025 10:09 AM CDT) Anatomical Region Laterality Modality Chest Other Miguel Angel Salmon MD DIAGNOSTIC IMAGING ORDERABLES [...] CDT [facility] Portal [email or web address] 03/02/2025 11:30 AM CDT [facility] Comment:[facility] Portal link Low Coverage Regions JAK1, MSH3, SPOP, TERT 11:30 AM CDT [facility] Therapy Count 4 03/02/2025 11:30 AM CDT [facility]: Potential Therapy 1 Gene: 8975^PIK3CA^HGNC Variant: p.[id number] Match Type: snvIndel Match Type Description: PIK3CA p.B6945O Agent: Alpelisib + Fulvestrant Drug Class: Combination (PI3K Inhibitor + Estrogen Receptor Antagonist) Tissue: Breast Cancer Association: Response Evidence Status: Consensus Evidence ID: NCCN KDB Variant: [id number] - GOF NCCN Associated Evidence: Consensus, Breast Cancer MSK Associated Evidence: MSK OncoKB, Level 1 Label: FDA On Label FDA Approved?: Yes On label?: Yes 03/02/2025 11:30 AM CDT [facility]: Potential Therapy 2 Gene: 8975^PIK3CA^HGNC Variant: p.[id number] Match Type: snvIndel Match Type Description: PIK3CA p.E4519B Agent: Capivasertib + Fulvestrant Drug Class: Combination (Lara-AKT Inhibitor + Estrogen Receptor Antagonist) Tissue: Breast Cancer Association: Response Evidence Status: Consensus Evidence ID: NCCN KDB Variant: [id number] - GOF NCCN Associated Evidence: Consensus, Breast Cancer MSK Associated Evidence: MSK OncoKB, Level 1 Label: FDA On Label FDA Approved?: Yes On label?: Yes 03/02/2025 11:30 AM CDT [facility]: Potential Therapy 3 Gene: 8975^PIK3CA^HGNC Variant: p.[id number] Match Type: snvIndel Match Type Description: PIK3CA p.Q0986S Agent: Inavolisib + Fulvestrant + Palbociclib Drug Class: Combination (PI3K Inhibitor + Estrogen Receptor Antagonist + CDK4/6 Inhibitor) Tissue: Breast Cancer Association: Response Evidence Status: Consensus Evidence ID: NCCN KDB Variant: Lamh-xe-mtbnvuem NCCN Associated Evidence: Consensus, Breast Cancer MSK Associated Evidence: MSK OncoKB, Level 1 Label: FDA On Label FDA Approved?: Yes On label?: Yes 03/02/2025 11:30 AM CDT [facility]: Potential Therapy 4 Gene: 8975^PIK3CA^HGNC Variant: p.Z7704N Match Type: snvIndel Match Type Description: PIK3CA p.Q4224B Agent: Alpelisib Drug Class: PI3K Inhibitor Tissue: Solid Tumors Association: Response Evidence Status: Clinical research Evidence ID: [id number] Evidence URL: https://www.ncbi.nlm.n ih.gov/pubmed/14210954 Evidence Title: Phosphatidylinositol 3-Kinase -Selective Inhibition With Alpelisib (CHJ466) in SXJ6JO-Mcfyuvx Solid Tumors: Results From the Agpvs-eb-Cxxim Study - PubMed KDB Variant: Dose-tm-gtrehfil Label: FDA Off Label FDA Approved?: Yes On label?: No 03/02/2025 11:30 AM CDT [facility] Trial Count 3 03/02/2025 11:30 AM CDT [facility]: Clinical Trial Match 1 Clinical Trial NCT ID: [id number] Clinical Trial Title: Koziv-ye-Fjeqe Study of Mutant-selective PI3K Inhibitor, RLY-2608, As a Single Agent in Advanced Solid Tumor Patients and in Combination with Fulvestrant in Patients with Advanced Breast Cancer Clinical Trial URL: https://clinicaltrials .gov/ct2/show/NTT58673 432 Clinical Phase: Phase 1 Clinical Trial Matches: PIK3CA p.T2032H mutation Clinical Trial Distance and Location: [address] [place], [place] 03/02/2025 11:30 AM CDT [facility]: Clinical Trial Match 2 Clinical Trial NCT ID: [id number] Clinical Trial Title: [id number] in Participants With Advanced Solid Tumors Clinical Trial URL: https://clinicaltrials .gov/ct2/show/ZUD08618 704 Clinical Phase: Phase 1 Clinical Trial Matches: PIK3CA p.W7122B mutation Clinical Trial Distance and Location: [address] [place], [place] 03/02/2025 11:30 AM CDT [facility]: Clinical Trial Match 3 Clinical Trial NCT ID: [id number] Clinical Trial Title: Priha-cz-Avsja Study of STX-478 as Monotherapy and in Combination With Other Antineoplastic Agents in Participants With Advanced Solid Tumors Clinical Trial URL: https://clinicaltrials .gov/ct2/show/ZLQ31403 139 Clinical Phase: Phase 1/Phase 2 Clinical Trial Matches: PIK3CA p.K1905V mutation Clinical Trial Distance and Location: [address] [place], [place] 03/02/2025 11:30 AM CDT [facility] Tumor Mutational [place] 4.3 m/MB 03/02/2025 11:30 AM CDT [facility] Microsatellite Instability Note MSI-High not detected 11:30 AM CDT [facility] Blood specimen (specimen) 02/23/2025 9:35 PM CDT Narrative This result has genomic variants that were not included in this document. us Miguel Angel Salmon MD MOLECULAR ORDERABLES Final Resu lt Performing Organization Address City/[facility]/ZIP Co de Phone Number [facility] [address], [address] [place] [address], [place] [phone] [facility] [address], [address] [place] [address] * [facility] NORMAL BLOOD (02/21/2025 4:06 PM CDT) [facility] 02/21/2025 11:00 PM CDT [facility] Comment:See NGS Report for R esults. Blood specimen (specimen) 02/21/2025 4:06 PM CDT 02/21/2025 4:07 PM CDT us Miguel Angel Salmon MD MOLECULAR ORDERABLES Final Resu lt Performing Organization Address [facility] Co de Phone Number [facility] [address], [address] [place] [address], [place] [phone] [facility] [address], [address] [place] [address] * COMPREHENSIVE METABOLIC PANEL (02/21/2025 9:47 AM [...] prior right breast conservation therapy. DICTATION LOCATION: [facility] TECHNIQUE: Mediolateral oblique, mediolateral and craniocaudal views [...] prior right breast conservation therapy. DICTATION LOCATION: [facility] TECHNIQUE: Mediolateral oblique, mediolateral and craniocaudal views [...] STI screening follows ACOG guidelines(PB 168, 140, HZC595). See individual assays for performing site location. [...] 01/13/2020 12:55 PM CDT [facility] SUPERVISOR PHOTOCOMPOSITION: SEE COMMENT 2019 12:55 PM CDT [facility] Comment: BLG, CT(ASCP) CT screening location: [place] [address] [place] [address] EXPLANATORY NOTE SEE COMMENT 020 12:55 PM [...] of this assay have been determined by [facility]. The modifications have not been cleared or approved by the FDA. This assay has been validated pursuant to the CLIA regulations and is used for clinical purposes. Genital SWAB OF ENDOCERVIX / Unknown Collection / Unknown 01/10/2020 11:38 AM CDT 01/10/2020 6:22 PM CDT Narrative [facility] - 01/13/2020 12:55 PM CDT Performing Organization Information: Site ID: [place] [email or web address] Address: [address] [address] Director: Jian Park D.O., MPH Site ID: [place] [facility] Address: [address] [place] [address] Director: Usha Garza Nickie Alegre MD PATHOLOGY/CYTOLOGY ORD ERABLES Final Result [facility] [phone] from Last 3 Months or Most Recently Relevant to Health Maintenance Insurance RX PRIME [employer] BS BLUE ACCESS CHOICE BLUE ACCESS CHOICE Care Teams Residential Concierge Relationship Specialty Start Date End Date Lainey Maria PA PCP - General Physician Proposal Consultant 03/22/19
--- OUTSIDE RECORDS SUMMARY | 2025-05-01 11:29 | XMS_ITS ---
Author Organization [facility] Address [address] [place] [address] Care Team Providers Care Stock Saw Operator Name Role Phone Lainey Maria Primary Care Provider [phone] Breast Cancer Status:Enrolled (Active) Start date:04/14/2025 Enrollment date:04/14/2025 Enrollment reason:Conversion Current support & services provided:Clinical Management, Refill Management, Benefits and PA Management, Financial Assistance Linked medications:palbociclib (Active) Overview Conversion Continued Care and Services Coordination
--- OUTSIDE RECORDS SUMMARY | 2025-05-01 11:29 | XMS_ITS | Encounter Summary ---
Author Organization [facility] Address [address] [place] [address] Care Team Providers Care Bulldozer Engineer Name Role Phone Lainey Maria Primary Care Provider [phone] Encounter Details Date Type Department Care Team (Late Contact Info) Description 04/17/2025 Specialty Pharmacy [facility] [address] [place] [address] Angely Ramirez, PHARMACIST Social History [...] Description 05/22/2025 10:00 AM CDT Office Visit [facility] Oncology and Hematology - [place] [address] [facility] [address] [place] [address] Miguel Angel Salmon MD [address] [address] [facility] [address] [place] [address] documented as of this encounter Visit Diagnoses Not on filedocumented in this encounter Care Teams Bulldozer Engineer Relationship Specialty Start Date End Date Lainey Maria PA PCP - General Physician Corporate Travel Manager 03/22/19 documented as of this encounter
--- OUTSIDE RECORDS SUMMARY | 2025-05-01 11:29 | XMS_ITS | Encounter Summary ---
Author Organization [facility] Address [address] [place] [address] Care Team Providers Care Head Of Product Name Role Phone Lainey Maria Primary Care Provider Encounter Details Date Type Department Care Team ([facility] Contact Info) Description 05/05/2019 Chart Note [facility] Radiation Therapy [address] [place] [address] [place] [address] [place] [address] Social History Tobacco Use Types [...] and Hematology - [place] [address] [facility] [address] [place] [address] Miguel Angel Salmon MD [address] [facility] [address] [place] [address] documented as of this encounter Visit Diagnoses Not on filedocumented in this encounter Care Teams Head Of Product Relationship Specialty Start Date End Date Lainey Maria PA PCP - General Physician Diesel Powerplant Mechanic Helper 03/22/19 documented as of this encounter
[2025-05-01 12:20] LABS: Alanine Aminotransferase 14 U/L (6-35); Albumin Level 4.0 g/dL (3.5-5.1); Alkaline Phosphatase 149 U/L (38-126); Anion Gap 9 mmol/L (4-12); Aspartate Amino Transferase 27 U/L (14-36); Bilirubin,Total 0.6 mg/dL (0.2-1.3); Blood Urea Nitrogen 11 mg/dL (7-17); Calcium 9.0 mg/dL (8.4-10.2); Carbon Dioxide 25 mmol/L (22-30); Chloride 103 mmol/L (98-107); Estimated Glomerular Filt Rate > 60; Glucose 146 mg/dL (65-110); Potassium 4.4 mmol/L (3.4-5.0); Sodium 137 mmol/L (137-145); Total Protein 7.8 g/dL (6.3-8.2)
== END 2025-05-01 10:22 | disposition home or self-care (01) ==
LOC: ANHLAB 10:22
PROVIDERS: Visit Provider Internal Medicine Hematology & Oncology
DX: C79.51 Secondary malignant neoplasm of bone (principal)
CPT/HCPCS: 36415; 80053; 85025; 86300

== ENCOUNTER 2025-05-22 09:41 | Outpatient (CLI) | payer BC, SELFPAY ==
[2025-05-22 10:16] LABS: Hematocrit 31.6 % (37.0-47.0); Hemoglobin 9.4 g/dL (12.0-15.0); Immature Granulocyte Percent A 12.1 % (0-0.5); Lymphocytes Absolute Auto 1.29 K/mm3 (0.9-3.2); Mean Corpuscular HGB Conc 29.7 g/dl (32-36); Mean Corpuscular Hemoglobin 29.5 pg (26-34); Mean Corpuscular Volume 99.1 fl (80-100); Nucleated Red Blood Cells Absolute Auto 0.460 K/mm3 (0.0-0.012); Nucleated Red Blood Cells Perc 8.8 % (0.0-0.2); Platelet Count Result 142 k/mm3 (150-375); Red Blood Count 3.19 M/mm3 (4.2-5.4); White Blood Count 5.2 K/mm3 (4.5-10.0)
[2025-05-22 10:21] LABS: Blood Urea Nitrogen 12 mg/dL (8-26); Carbon Dioxide 25 mmol/L (22-30); Chloride 105 mmol/L (98-109); Estimated Glomerular Filt Rate > 60; Glucose 93 mg/dL (70-105); Ionized Calcium (POC) 1.14 mmol/L (1.11-1.31); Potassium 4.5 mmol/L (3.5-4.9); Sodium 138 mmol/L (138-146)
--- OUTSIDE RECORDS SUMMARY | 2025-05-22 10:24 | XMS_ITS | Clinical Summary ---
Author Organization [facility] Care Team Providers Care Byproducts Supervisor Name Role Phone Unavailable Primary Care Provider Unavailabl e Social History Tobacco Use Types Packs/Day Years Used Date Smoking Tobacco: Never Assessed Comments Unknown Sex and Gender Information Value Date Recorded Sex Assigned at Not on file Legal Sex Female 8:51 AM SETTER OUT Gender Identity Not on file Sexual Orientation [...] (1 of 2) 2020 Influenza Immunization (#1) 2025 SARS-COV-2 Immunization ( season) 2025 Respiratory Syncytial Virus (RSV) Immunization (Adult) [...]
--- OUTSIDE RECORDS SUMMARY | 2025-05-22 10:24 | XMS_ITS | Clinical Summary ---
Author Organization [facility] Address [facility] [place] [address] Care Team Providers Care Front Sight Attacher Name Role Phone Clarita Grissom MD Primary Care Provider [phone] Allergies Active Allergy Reactions Criticality Noted Date Comments Iodinated Contrast Media Hives High 04/13/2019 Medications omega-3 fatty acids 1,000 mg capsule Take 1,000 mg by mouth 2 (two) times a day Active ergocalciferol (DRISDOL) 8,000 unit/mL drops Take by mouth Active vitamin B complex capsule Take 1 capsule by mouth daily Active iron aspgly,ps-C-B12 -FA-Ca-suc 150-60-25-1 yk-mu-yjm-mg capsule Take by mouth Active turmeric root extract 500 mg capsule Take by mouth Active Active Problems Problem Noted Date Diagnosed Date Elevated liver function tests 01/30/2025 Assessment & Plan (01/30/2025 2:29 PM CDT): Lucila Conrad presents for evaluation of elevated liver tests. [...] (01/30/2025 2:20 PM CDT): Patient deferred colonoscopy. Surgical History Surgery Date Site/Laterality Comments BREAST [...] Procedure Name Priority Date/Time Associated Diagnosis Comments HEPATITIS C ANTIBODY Routine 01/30/2025 2:45 PM CDT Elevated liver function tests from Last 3 Months or Most Recently Relevant to Health Maintenance Results * Hepatitis C antibody Blood (01/30/2025 2:45 [...] last revised on 2019. Testing performed by: [facility], [address] [place] [address]., [id number] Blood 01/30/2025 2:45 PM CDT 01/30/2025 6:09 PM CDT Kirsten Noriega NP LAB MICROBIOLOGY - GENERAL ORDERABLES Final Result Performing Organization Address City/State/ZIP Co nh Phone Number [facility] [address] [facility] [place] [address] from Last 3 Months or Most Recently Relevant to Health Maintenance [place] Care Teams Front Sight Attacher Relationship Specialty [place] [address] [address] PCP - General Internal Medicine 12/29/24
--- OUTSIDE RECORDS SUMMARY | 2025-05-22 10:24 | XMS_ITS | Encounter Summary ---
Author Organization [facility] Address [address] [place] [address] Care Team Providers Care Department Clerk Name Role Phone Lainey Maria Primary Care Provider [phone] Encounter Details Date Type Department Care Team (Late Contact Info) Description 04/17/2025 Specialty Pharmacy [facility] [address] [place] [address] Angely Ramirez, PHARMACIST Social History [...] Department Care Team (Late Contact Info) Description 05/29/2025 9:00 AM CDT Office Visit [facility] Oncology and Hematology - [place] [address] [facility] [address] [place] [address] Miguel Angel Salmon MD [address] [facility] [address] [place] [address] documented as of this encounter Visit Diagnoses Not on filedocumented in this encounter Care Teams Department Clerk Relationship Specialty Start Date End Date Lainey Maria PA PCP - General Physician Flexo Folder Gluer Operator 03/22/19 documented as of this encounter
--- OUTSIDE RECORDS SUMMARY | 2025-05-22 10:24 | XMS_ITS | Encounter Summary ---
Author Organization [facility] Address [address] [place] [address] Care Team Providers Care Media Relations Associate Name Role Phone Lainey Maria Primary Care Provider [phone] Encounter Details Date Type Department Care Team ([facility] Contact Info) Description 05/05/2019 Chart Note [facility] Radiation Therapy [address] [place] [address] [place] [address] [place] [address] Social History Tobacco Use Types [...] Description 05/29/2025 9:00 AM CDT Office Visit [facility] Oncology and Hematology - [place] [address] [facility] [address] [place] [address] Miguel Angel Salmon MD [address] [facility] [address] [place] [address] documented as of this encounter Visit Diagnoses Not on filedocumented in this encounter Care Teams Media Relations Associate Relationship Specialty Start Date End Date Lainey Maria PA PCP - General Physician Solutions Executive Security 03/22/19 documented as of this encounter
--- OUTSIDE RECORDS SUMMARY | 2025-05-22 10:24 | XMS_ITS ---
Author Organization [facility] Address [address] [facility] [place] [address] Care Team Providers Care Training Executive Name Role Phone Lainey Maria Primary Care Provider [phone] Breast Cancer Status:Enrolled (Active) Start date:04/14/2025 Enrollment date:04/14/2025 Enrollment reason:Conversion Current support & services provided:Clinical Management, Refill Management, Benefits and PA Management, Financial Assistance Linked medications:palbociclib (Active) Overview Conversion Continued Care and Services Coordination
--- OUTSIDE RECORDS SUMMARY | 2025-05-22 10:24 | XMS_ITS | Clinical Summary ---
Author Organization [facility] Address [address] [facility] [place] [address] Care Team Providers Care Cloth Boil Off Machine Operator Name Role Phone Lainey Maria Primary Care Provider [phone] Allergies Active Allergy Reactions Criticality Noted Date Comments Iodinated Contrast Media Hives High 04/13/2019 Medications ergocalciferol , vitamin D2, (VITAMIN D ORAL) Take by mouth. Active palbociclib (Ibrance) 125 mg tablet Take 1 Tablet (125 mg) by mouth daily with breakfast for 3 weeks on, 1 week off. Repeat every 28 days. 21 Tablet 4 04/25/2025 3:07 PM CDT 02/22/20 25 Active anastrozole (ARIMIDEX) 1 mg tablet TAKE 1 TABLET(1 MG) BY MOUTH DAILY 90 Tablet 1 05/12/20 25 Active anastrozole (Arimidex) 1 mg tablet Take 1 Tablet (1 mg) by mouth daily. 90 Tablet 1 02/22/20 25 025 Discontinued Active Problems Problem Noted Date Diagnosed Date Encounter for smoking cessation counseling 10/18 Acute mastitis 09/30/2020 Abnormal magnetic resonance imaging of right jordyn ast 04/04/2019 Tobacco dependence 03/29/2019 Overview (03/29/2019): 1/2 PPD Invasive ductal carcinoma of right breast 2018 Cancer Staging:Clinical:Stage IB(cT2, cN0(sn), cM0, G2, ER+, DC+, HER2-) - Signed by Melly Arenas MD on 04/21/2019 Abnormality of right breast on screening mammogr am 03/22/2019 Elevated WBCs Encounters Date Type Department Care Team Description 05/19/2025 Telephone [facility] - [place] [address] [place] [address] Miguel Angel Salmon MD labs for appt 05/16/2025 External Device Data STL ABSTRACTION Provider, Abstract 05/12/2025 Refill [facility] - [place] [address] [place] [address] Miguel Angel Salmon MD 05/03/2025 Telephone [facility] - [place] [address] [place] [address] Miguel Angel Salmon MD Lab Results 05/03/2025 Orders Only [facility] - [place] [address] [place] [address] Miguel Angel Salmon MD 04/25/2025 External Device Data STL ABSTRACTION Provider, Abstract 04/25/2025 Orders Only [facility] - [place] [address] [place] [address] Miguel Angel Salmon MD 04/24/2025 11:30 AM CDT Office Visit [facility] - [place] [address] [place] [address] Miguel Angel Salmon MD Metastatic cancer to bone (CMS/HCC) (Primary Dx) 04/21/2025 Specialty Pharmacy [facility] [address] [place] [phone] Angely Ramirez, PHARMACIST 04/17/2025 Specialty Pharmacy [facility] [address] [place] [phone] Angely Ramirez, PHARMACIST 04/12/2025 External Device Data STL ABSTRACTION Provider, Abstract 03/29/2025 External Device Data STL ABSTRACTION Provider, Abstract 03/23/2025 Specialty Pharmacy [facility] [address] [place] [address] [place] [address] Beth Brito, PHARMACIST Specialty Pharmacy Refill Coordination 03/21/2025 Orders Only [facility] - [place] [address] [place] [phone] Miguel Angel Salmon MD 03/20/2025 2:00 PM CDT Office Visit [facility] - [place] [address] [place] [phone] Miguel Angel Salmon MD Shortness of breath (Primary Dx); Chronic anemia 03/17/2025 Telephone [facility] - [place] [address] [place] [phone] Miguel Angel Salmon MD appointment without [facility] 03/15/2025 External Device Data STL ABSTRACTION Provider, Abstract 03/14/2025 External Device Data STL ABSTRACTION Provider, Abstract 02/28/2025 External Device Data STL ABSTRACTION Provider, Abstract 02/28/2025 External Device Data STL ABSTRACTION Provider, Abstract 02/28/2025 External Device Data STL ABSTRACTION Provider, Abstract 02/24/2025 Specialty Pharmacy [facility] [address] [place] [address] [place] [address] Mariluz Angel, PHARMACIST Specialty Pharmacy Clinical Assessment 02/24/2025 Specialty Pharmacy [facility] [address] [place] [address] [place] [address] Mariluz Angel, PHARMACIST Specialty Pharmacy Refill Coordination 02/23/2025 Specialty Pharmacy [facility] [address] [place] [address] [place] [address] Mariluz Angel, PHARMACIST Specialty Pharmacy Prior Auth Coordination 02/22/2025 Orders Only [facility] - [place] [address] [place] [phone] Miguel Angel Salmon MD 02/21/2025 4:00 PM CDT Office Visit [facility] - [place] [address] [place] [address] Miguel Angel Salmon MD Chronic [...] Care Team (Late st Contact Info) Description 05/29/2025 9:00 AM CDT Office Visit [facility]ology - [place] [address] [place] [address] Miguel Angel Salmon MD [address] [facility] [employer] [employer] [address] [place] [address] Health Maintenance Due Date Last [...] 07/11/2025 01/09/2025 Medical Devices Implanted Type Area Glue Machine Operator Device Identifier Shelf Expiration Date Model / Serial / Lot Hemostatic Surgicel 2x14in 1950 - [id number] Implanted:Qty: 1 on 04/13/2019 by Melly Arenas MD [place] [facility] [place]ostatic Right: Breast [employer] 12/08/20191950 / / [id number] Procedures Procedure Name Priority Date/Time Associated Diagnosis Comments CHG CA 15 3 Routine 05/01/2025 12:57 PM CDT COMPREHENSIVE METABOLIC PANEL Routine 05/01/2025 11:51 AM CDT CBC WITH AUTODIFFERENTIAL Routine 05/01/2025 10:33 AM CDT BASIC METABOLIC PANEL Routine 04/24/2025 12:40 PM [...] Recently Relevant to Health Maintenance Results * CHG CA 15 3 (05/01/2025 12:57 PM CDT) us Miguel Angel Salmon MD CHG - LABORATORY Final Result * COMPREHENSIVE METABOLIC PANEL (05/01/2025 11:51 AM CDT) Only the most recent of2 resultswithin the time period is included. Blood us Miguel Angel Salmon MD CHEMISTRY ORDERABLES Final Resu lt * CBC WITH AUTODIFFERENTIAL (05/01/2025 10:33 AM CDT) Only the most recent of3 resultswithin the time period is included. Blood us Miguel Angel Salmon MD HEMATOLOGY ORDERABLES Final Res ult * BASIC METABOLIC PANEL (04/24/2025 12:40 PM CDT) Blood Miguel Angel Salmon MD CHEMISTRY ORDERABLES Final Resu lt * XR CHEST LAT 1 VW (03/20/2025 [...] CDT [facility] [email or web address] 03/02/2025 11:30 AM CDT [facility] Comment:[facility] link Low Coverage Regions JAK1, MSH3, SPOP, TERT 11:30 AM CDT [facility] Therapy Count 4 03/02/2025 11:30 AM CDT [facility]: Potential Therapy 1 Gene: 8975^PIK3CA^HGNC Variant: p.[id number] Match Type: snvIndel Match Type Description: PIK3CA p.Y7228O Agent: Alpelisib + Fulvestrant Drug Class: Combination (PI3K Inhibitor + Estrogen Receptor Antagonist) Tissue: Breast Cancer Association: Response Evidence Status: Consensus Evidence ID: NCCN KDB Variant: [id number] - GOF NCCN Associated Evidence: Consensus, Breast Cancer MSK Associated Evidence: MSK OncoKB, Level 1 Label: FDA On Label FDA Approved?: Yes On label?: Yes 03/02/2025 11:30 AM CDT [facility]: Potential Therapy 2 Gene: 8975^PIK3CA^HGNC Variant: p.[id number] Match Type: snvIndel Match Type Description: PIK3CA p.Q1510T Agent: Capivasertib + Fulvestrant Drug Class: Combination (Lara-AKT Inhibitor + Estrogen Receptor Antagonist) Tissue: Breast Cancer Association: Response Evidence Status: Consensus Evidence ID: KIN KDB Variant: [id number] - GOF NCCN Associated Evidence: Consensus, Breast Cancer MSK Associated Evidence: MSK OncoKB, Level 1 Label: FDA On Label FDA Approved?: Yes On label?: Yes 03/02/2025 11:30 AM CDT [facility]: Potential Therapy 3 Gene: 8975^PIK3CA^HGNC Variant: p.I5600N Match Type: snvIndel Match Type Description: PIK3CA p.G6320D Agent: Inavolisib + Fulvestrant + Palbociclib Drug Class: Combination (PI3K Inhibitor + Estrogen Receptor Antagonist + CDK4/6 Inhibitor) Tissue: Breast Cancer Association: Response Evidence Status: Consensus Evidence ID: VILMA KDB Variant: [id number] NCCN Associated Evidence: Consensus, Breast Cancer MSK Associated Evidence: MSK OncoKB, Level 1 Label: FDA On Label FDA Approved?: Yes On label?: Yes 03/02/2025 11:30 AM CDT [facility]: Potential Therapy 4 Gene: 8975^PIK3CA^HGNC Variant: p.J6980B Match Type: snvIndel Match Type Description: PIK3CA p.T6321T Agent: Alpelisib Drug Class: PI3K Inhibitor Tissue: Solid Tumors Association: Response Evidence Status: Clinical research Evidence ID: [id number] Evidence URL: https://www.ncbi.nlm.n ih.gov/pubmed/00944933 Evidence Title: Phosphatidylinositol 3-Kinase -Selective Inhibition With Alpelisib (ONI508) in VAN9BJ-Malifuv Solid Tumors: Results From the Vatct-uz-Vjhox Study - PubMed KDB Variant: [id number] Label: FDA Off Label FDA Approved?: Yes On label?: No 03/02/2025 11:30 AM CDT [facility] Trial Count 3 03/02/2025 11:30 AM CDT [facility]: Clinical Trial Match 1 Clinical Trial NCT ID: [id number] Clinical Trial Title: Cdazk-ci-Zotir Study of Mutant-selective PI3K Inhibitor, RLY-2608, As a Single Agent in Advanced Solid Tumor Patients and in Combination with Fulvestrant in Patients with Advanced Breast Cancer Clinical Trial URL: https://clinicaltrials .gov/ct2/show/DUT56980 432 Clinical Phase: Phase 1 Clinical Trial Matches: PIK3CA p.I4314Q mutation Clinical Trial Distance and Location: [address] [place], [place] 03/02/2025 11:30 AM CDT [facility]: Clinical Trial Match 2 Clinical Trial NCT ID: [id number] Clinical Trial Title: [id number] in Participants With Advanced Solid Tumors Clinical Trial URL: https://clinicaltrials .gov/ct2/show/CKP68362 704 Clinical Phase: Phase 1 Clinical Trial Matches: PIK3CA p.Q0152T mutation Clinical Trial Distance and Location: [address] [place], [place] 03/02/2025 11:30 AM CDT [facility]: Clinical Trial Match 3 Clinical Trial NCT ID: [id number] Clinical Trial Title: Tpytl-vk-Qookt Study of STX-478 as Monotherapy and in Combination With Other Antineoplastic Agents in Participants With Advanced Solid Tumors Clinical Trial URL: https://clinicaltrials .gov/ct2/show/ZQF48083 139 Clinical Phase: Phase 1/Phase 2 Clinical Trial Matches: PIK3CA p.F2826V mutation Clinical Trial Distance and Location: [address] [place], [place] 03/02/2025 11:30 AM CDT [facility] Tumor Mutational Victoria 4.3 m/MB 03/02/2025 11:30 AM CDT [facility] Microsatellite Instability Note MSI-High not detected 11:30 AM CDT [facility] Blood specimen (specimen) 02/23/2025 9:35 PM CDT Narrative This result has genomic variants that were not included in this document. us Miguel Angel Salmon MD MOLECULAR ORDERABLES Final Resu lt [facility] [address] [facility], [address] [place] [address], [place] [phone] [facility] [address], [address] [place] [address] * [facility] NORMAL BLOOD (02/21/2025 4:06 PM CDT) [facility] 02/21/2025 11:00 PM CDT [facility] Comment:See NGS Report for R esults. Blood specimen (specimen) 02/21/2025 4:06 PM CDT 02/21/2025 4:07 PM CDT us Miguel Angel Salmon MD MOLECULAR ORDERABLES Final Resu lt [facility] [address], [address] [place] [address], [place] [phone] [facility] [address] [facility], [address] [place] [address] * CBC WITH DIFFERENTIAL (02/21/2025 8:02 AM [...] prior right breast conservation therapy. DICTATION LOCATION: [facility] TECHNIQUE: Mediolateral oblique, mediolateral and craniocaudal [...] prior right breast conservation therapy. DICTATION LOCATION: [facility] TECHNIQUE: Mediolateral oblique, mediolateral and craniocaudal [...] STI screening follows ACOG guidelines(PB 168, 140, SPC065). See individual assays for performing site location. [...] 01/13/2020 12:55 PM CDT [facility] BRASS BURNISHER: SEE COMMENT 2019 12:55 PM CDT [facility] Comment: BLG, CT(ASCP) CT screening location: [place] [address] [place] [address] EXPLANATORY NOTE SEE COMMENT 020 12:55 PM [...] was performed using the APTIMA HPV Assay ([employer] This assay detects E6/E7 viral messenger RNA (mRNA) from 14 high-risk HPV types (16,18,31,33,35,39,45,51,52,56,58,59,66,68). The analytical performance characteristics of this assay have been determined by [facility]. The modifications have not been cleared or approved by the FDA. This assay has been validated pursuant to the CLIA regulations and is used for clinical purposes. Genital SWAB OF ENDOCERVIX / Unknown Collection / Unknown 01/10/2020 11:38 AM CDT 01/10/2020 6:22 PM CDT Narrative [facility] - 01/13/2020 12:55 PM CDT Performing Organization Information: Site ID: [place] Name: [facility] Address: [address] [address] Director: Jian Park D.O., MPH Site ID: [place] [facility] Address: [address] [place] [address] Director: Usha Garza us Nickie Alegre MD PATHOLOGY/CYTOLOGY ORD ERABLES Final Result [facility] [phone] from Last 3 Months or Most Recently Relevant to Health Maintenance Insurance [employer] Commercial [employer] BLUE ACCESS CHOICE [employer] CHO[employer] Care Teams Cloth Boil Off Machine Operator Relationship Specialty Start Date End Date Lainey Maria PA PCP - General Physician Control Systems Engineer 03/22/19
--- OUTSIDE RECORDS SUMMARY | 2025-05-22 10:24 | XMS_ITS | Clinical Summary ---
Author Organization [facility] Address [address] [place] [address] Care Team Providers Care Soap Press Feeder Name Role Phone Clarita Grissom MD Primary Care Provider Allergies Active Allergy Reactions Criticality Noted Date Comments Iodinated Contrast Media Hives High 04/13/2019 Medications aspirin 81 MG chewable tablet Chew 1 tablet (81 mg total) by mouth daily. Active metFORMIN ER (GLUCOPHAGE-XR) 500 MG 24 hr tabletIndications: Type 2 diabetes mellitus without complication, without long-term current use of insulin ([facility]) Take 1 tablet (500 mg total) by [...] ng multiple sites with positive rheumatoid factor 11/14/2024 Assessment & Plan (01/09/2025 5:19 PM CDT): -pt was seen by rag cutting machine feeder and rxed with steroid /pt was referred to see wood panel inspector for hep B per pt before starting MTX -pt to f/u with rag cutting machine feeder Assessment & Plan (11/15/2024 12:57 PM CDT): [...] complication, without long-term current use of insulin 11/08/2024 Assessment & Plan (01/09/2025 5:19 PM [...] lesion Invasive ductal carcinoma of right breast 2018 Assessment & Plan (01/09/2025 5:19 PM CDT): [...] for malignant neoplasm of breast 01/09/2025 01/16/2025 Family History Medical History Relation Comments Hypertension [...] Physical 1973 Diabetes: Retinopathy Eye Exam 1988 DTaP, Tdap and Td Vaccines ( [...] HPV 01/09/2023 COVID-19 Vaccine (2023-2 5 season) 2025 Influenza Adult (#1) 2025 Hemoglobin A1C 07/11/2025 01/09/2025, 10/26/2024 Kidney Health Evaluation 01/09/2026 01/09/2025 Lipid Panel 01/09/2026 01/09/2025 PHQ-2 (Physician [place]) Completed 11/08/2024 Hepatitis C Completed 01/30/2025 Meningococcal B Vaccine Aged Out No l onger eligible based on patient's age to complete this topic Meningococcal Vaccine Aged Out No avel tamar eligible based on patient's age to complete this topic RSV Immunizations Under 20 Months Aged Out No longer eligible b ased on patient's age to complete this topic Procedures Procedure Name Priority Date/Time Associated Diagnosis Comments HEP C SCANNED ORDERS Routine 01/30/2025 LIPID PANEL Routine 01/09/2025 10:09 AM CDT Other hyperlipidemia HEMOGLOBIN, GLYCOSYLATED Routine 01/09/2025 10:09 AM CDT Type 2 diabetes mellitus without complication, without long-term current use of insulin ([facility]) from Last 3 Months or Most Recently Relevant to Health Maintenance Results * HEP C SCANNED ORDERS (01/30/2025) us [facility] Scanned SCANNING Final Resu lt [facility] * (ABNORMAL) HEMOGLOBIN, GLYCOSYLATED (01/09/2025 10:09 AM CDT) HGB A1C 6.3(H) <5.7 % 01/09/2025 1:35 PM CDT [facility] Comment: INCREASED RISK OF DIABETES <5.7% NON-DIABETES 5.7-6.4% INCREASED RISK FOR FUTURE DIABETES > OR = 6.5 CONSISTENT WITH DIABETES STANDARDS OF MEDICAL CARE IN DIABETES-2010 DIABETES CARE, 33(SUPP 1): S1-S61,2010 ESTIMATED AVG GLUCOSE 134 mg/dL 01/09/2025 1:35 PM CDT [facility] 01/09/2025 10:0 9 AM CDT Clarita Grissom MD LABORATORY Final Result [facility] [address] [place] [address], [place] [phone] * (ABNORMAL) LIPID PANEL (01/09/2025 10:09 AM CDT) CHOLESTEROL 233(H) <200.0 MG/DL 01/09/2025 1:22 PM CDT [facility] TRIGLYCERIDES 170(H) <150 MG/DL 01/09/2025 1:22 PM T [facility] HDL 52 >40.0 MG/DL 01/09/2025 1:22 PM T [facility] LDL (CALCULATED) 147(H) <100 MG/DL 01/09/2025 1:22 PM T [facility] NON HDL CHOLESTEROL 181(H) <130 MG/DL 01/09/2025 1:22 PM T [facility] CHOL/HDL RATIO 4.5 0.0 - 4.5 01/09/2025 1:22 PM T [facility] VLDL CALCULATION 34 5 - 55 MG/DL 01/09/2025 1:22 PM T [facility] LIPID INTERPRETATION 01/09/2025 1:22 PM T [facility] Comment: NIH CONCENSUS REPORT RECOMMENDATIONS: ADULT CHILD LOW RISK: CHOLESTEROL <200 <170 TRIGLYCERIDE <150 --- HDL >=60 --- LDL <100 <110 BORDERLINE: CHOLESTEROL 200-239 170-199 TRIGLYCERIDE 150-199 --- HDL 40-59 --- LDL 100-159 110-129 HIGH RISK: CHOLESTEROL >=240 >=200 TRIGLYCERIDE >=200 --- HDL <40 --- LDL >=160 >=130 01/09/2025 10:0 9 AM CDT Clarita Grissom MD LABORATORY Final Result [facility] [address] [place] [address], from Last 3 Months or Most Recently Relevant to Health Maintenance Insurance Care Teams Soap Press Feeder Relationship Specialty [place] [address] [employer] [place] [address] PCP - General INTERNAL MEDICINE 11/10/24
[2025-05-22 10:25] LABS: Anisocytosis 2+; Band Neutrophils Percent 2 % (0-6); Lymphocytes Absolute Manual 1.61 K/mm3 (1.1-4.5); Lymphocytes Percent Manual 31.0 % (18-44); Monocytes Absolute Manual 0.62 K/mm3 (0.1-0.90); Monocytes Percent Manual 12 % (3-9); Neutrophils Absolute Manual 2.96 K/mm3 (1.3-6.7); Neutrophils Percent Manual 55 % (46-73); Schistocytes None Seen; Total Cells Counted 100
[2025-05-22 10:26] LABS: Hypochromasia 1+
[2025-05-22 10:49] LABS: Alanine Aminotransferase 15 U/L (6-35); Albumin Level 4.1 g/dL (3.5-5.1); Alkaline Phosphatase 159 U/L (38-126); Anion Gap 7 mmol/L (4-12); Aspartate Amino Transferase 25 U/L (14-36); Bilirubin,Total 0.6 mg/dL (0.2-1.3); Blood Urea Nitrogen 13 mg/dL (7-17); Calcium 9.2 mg/dL (8.4-10.2); Carbon Dioxide 24 mmol/L (22-30); Chloride 104 mmol/L (98-107); Estimated Glomerular Filt Rate > 60; Glucose 96 mg/dL (65-110); Potassium 4.5 mmol/L (3.4-5.0); Sodium 135 mmol/L (137-145); Total Protein 8.2 g/dL (6.3-8.2)
== END 2025-05-22 09:42 | disposition home or self-care (01) ==
LOC: ANHLAB 09:43
PROVIDERS: Visit Provider Internal Medicine Hematology & Oncology
DX: C79.51 Secondary malignant neoplasm of bone (principal); C50.911 Malignant neoplasm of unspecified site of right female breast
CPT/HCPCS: 36415; 80047; 80053; 85025; 86300

== ENCOUNTER 2025-06-26 09:24 | Outpatient (CLI) | payer BC, SELFPAY ==
[2025-06-26 09:40] LABS: Hematocrit 30.4 % (37.0-47.0); Hemoglobin 9.4 g/dL (12.0-15.0); Immature Granulocyte Percent A 17.4 % (0-0.5); Lymphocytes Absolute Auto 1.41 K/mm3 (0.9-3.2); Mean Corpuscular HGB Conc 30.9 g/dl (32-36); Mean Corpuscular Hemoglobin 30.4 pg (26-34); Mean Corpuscular Volume 98.4 fl (80-100); Nucleated Red Blood Cells Absolute Auto 0.410 K/mm3 (0.0-0.012); Nucleated Red Blood Cells Perc 7.7 % (0.0-0.2); Platelet Count Result 135 k/mm3 (150-375); Red Blood Count 3.09 M/mm3 (4.2-5.4); White Blood Count 5.4 K/mm3 (4.5-10.0)
[2025-06-26 09:52] LABS: Band Neutrophils Percent 4 % (0-6); Basophils Absolute Manual 0.16 K/mm3 (0.0-0.1); Basophils Percent Manual 3 % (0-1); Eosinophils Absolute Manual 0.10 K/mm3 (0.02-0.50); Eosinophils Percent Manual 2 % (0-4); Hypochromasia 1+; Lymphocytes Absolute Manual 1.56 K/mm3 (1.1-4.5); Lymphocytes Percent Manual 29.0 % (18-44); Monocytes Absolute Manual 0.86 K/mm3 (0.1-0.90); Monocytes Percent Manual 16 % (3-9); Neutrophils Absolute Manual 2.70 K/mm3 (1.3-6.7); Neutrophils Percent Manual 46 % (46-73); Schistocytes None Seen; Total Cells Counted 100
[2025-06-26 09:53] LABS: Anisocytosis 2+
[2025-06-26 12:09] LABS: Anion Gap 6 mmol/L (4-12); Blood Urea Nitrogen 13 mg/dL (7-17); Calcium 9.4 mg/dL (8.4-10.2); Carbon Dioxide 25 mmol/L (22-30); Chloride 103 mmol/L (98-107); Estimated Glomerular Filt Rate > 60; Glucose 129 mg/dL (65-110); Potassium 4.9 mmol/L (3.4-5.0); Sodium 134 mmol/L (137-145)
== END 2025-06-26 09:25 | disposition home or self-care (01) ==
LOC: ANHLAB 09:25
PROVIDERS: Visit Provider Internal Medicine Hematology & Oncology
DX: C79.51 Secondary malignant neoplasm of bone (principal)
CPT/HCPCS: 36415; 80048; 85025; 86300